=== PATIENT | female | born 1935 | race Caucasian/White ===

== ENCOUNTER → 2019-09-12 11:52 | Outpatient (BNVA) | payer MEDICARE, OTHER, SELFPAY | PROVIDERS: Family Provider Internal Medicine; Visit Provider Nurse Practitioner | DX: K59.00 Constipation, unspecified (principal); E78.2 Mixed hyperlipidemia; I10 Essential (primary) hypertension; K21.9 Gastro-esophageal reflux disease without esophagitis; Z85.038 Personal history of other malignant neoplasm of large intestine | CPT/HCPCS: 74018; 80053; 80061; 81000; 84443; 85025 ==

== ENCOUNTER → 2019-10-24 13:45 | Outpatient (BNVA) | payer MEDICARE, OTHER, SELFPAY | PROVIDERS: Family Provider Internal Medicine; Visit Provider Nurse Practitioner | DX: R19.7 Diarrhea, unspecified (principal); I10 Essential (primary) hypertension; R10.30 Lower abdominal pain, unspecified | CPT/HCPCS: 74018; 81000; 85025 ==

== ENCOUNTER → 2019-10-27 09:56 | Outpatient (BNVA) | payer MEDICARE, OTHER, SELFPAY | PROVIDERS: Family Provider Internal Medicine; Visit Provider Nurse Practitioner | DX: R10.31 Right lower quadrant pain (principal) | CPT/HCPCS: 74018; 81000; 85025 ==

== ENCOUNTER 2019-11-02 11:47 | Outpatient (CLI) | payer MEDICARE, OTHER, SELFPAY ==
[2019-11-02] MEDS: iohexol 300 mg/mL 50 mL Btl PO (11:59)
--- NOTE | 2019-11-02 13:00 | CT_ITS ---
WS: [id number] CT ABDOMEN AND PELVIS WITH CONTRAST HISTORY: right lower abdomen pain TECHNIQUE: Imaging performed of the abdomen and pelvis with IV contrast. Single phase imaging of the abdomen. Coronal and sagittal reformats are submitted. All CT scans at [facility] use at least one of these dose optimization techniques: automated exposure control; mA and/or kV adjustment per patient size (includes targeted exams where dose is matched to clinical indication); or iterativ e reconstruction. IV CONTRAST: Omnipaque 300; 95 mL IV. Oral contrast: Yes. DLP: 1073.26 mGycm COMPARISON: 03/07/2019 Lower thorax: Lung bases are clear. Mild enlargement of the heart. Small hiatal hernia. Liver/biliary system: Normal size liver. Numerous small cysts within the liver. No mass. No bile duct dilatation. Gallbladder: Normal. No gallstones or wall thickening. No pericholecystic fluid. Pancreas: Normal. Spleen: Normal. Adrenal glands: Normal. Right kidney: Duplicated renal pelvis. There is very small scattered cortical hypodensities. These ar e too small to characterize. No mass or obstruction. Left kidney: Cortical cyst upper pole measures 8 mm. No obstruction. Aorta: Mild atherosclerosis with no aneurysm. Lymphadenopathy: None. Free fluid: None. GI tract: The appendix is not definitely identified. There are no inflammatory changes in the RIGHT l ower quadrant. No GI tract obstruction. Numerous diverticula in the sigmoid colon. No evidence for ac sahil diverticulitis. Abdominal wall: Unremarkable abdominal wall. No hernia. Pelvis: Normally distended urinary bladder. No free fluid in the pelvis. Bones: Unremarkable. CT/CT abdomen pelvis w con* [id number] IMPRESSION: 1. No acute intra-abdominal or pelvic abnormalities. 2. Sigmoid diverticulosis without evidence for acute diverticulitis or obstruc tion. 3. 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 4. Hepatic cysts. 5. Cardiomegaly.
[2019-11-02] MEDS: iohexol 300 mg/mL 100 mL Btl IV (13:09)
== END 2019-11-02 11:48 | disposition home or self-care (01) ==
LOC: RADWPI 11:57
PROVIDERS: Family Provider Internal Medicine; PCP Nurse Practitioner; Visit Provider Nurse Practitioner
DX: R10.31 Right lower quadrant pain (principal); K57.30 Diverticulosis of large intestine without perforation or abscess without bleeding; K76.89 Other specified diseases of liver; I51.7 Cardiomegaly
CPT/HCPCS: 74177; Q9967

== ENCOUNTER 2019-11-16 09:26 | Day surgery (SDC) | payer MEDICARE, OTHER, SELFPAY ==
[2019-11-15 13:18] VITALS: BMI 22.8
--- NOTE | 2019-11-16 07:31 | P.ANESASSM_ITS ---
Pre-Anesthetic Assessment Pre-Anesthetic Assessment: Height/Weight: Height 1.6 m Weight 58.513 kg Preop Diagnosis: CHANGE INbowel habits Proposed Procedure: Operation Date: 11/16/19 11:05 Proposed Procedures p Colonoscopy with stool studies 14820 R19.7(Not Applicable) - Dillon Dietrich MD Familial anesthetic complications: none Was Beta Nataliia taken within 24 hours: N/A Last intake: NPO > 8 hrs Social: Social History: No alcohol and No tobacco Comment: quit smoking 34 years ago Exam: Pre-Anes Outpt Exam: alert, oriented x 3, clear to auscultation bilaterally and regular rate & rhythm Airway: Cervical ROM: WNL MP: 2 Dentition: False and Partials Pulmonary: Pulmonary: None reported CV/HEM: CV/HEM: HTN : : None reported Hepatic: Hepatic: None reported GI: GI: GERD Comments: L hemicolectomy 2006 Metabolic: Metabolic: Hyperlipidemia Musc/skel: Musc/skel: None reported Neuropsych: Neuropsych: TIA Anesthetic Plan: ASA status: 2 Anesthesia: MAC Risk of > 500 ml blood lo ss (7ml/kg in children): No Other Pertinent Information: patient poor historian PFSH Anesthesia PFSH: Medical History Ambulates with cane ASHD (arteriosclerotic heart disease) Chronic back pain Colon cancer Constipation Cystocele with prolapse Diarrhea GERD (gastroesophageal reflux disease) History of TIA (transient ischemic attack) Hypertension Mixed hyperlipidemia Surgical History H/O left hemicolectomy 2006 H/O vaginal surgery rectocele and cystocele repair in 1999 [place], [place] History of hysterectomy with BSO Family History Sister Breast cancer, Onset Age: 50 Hypertension Father Stroke Heart disease Hypertension Mother Stroke Heart disease Diabetes Hypertension Denies family history of Bleeding disorder Social History Smoking and tobacco status: former smoker Quit status (tobacco): has quit using tobacco Former quit date comment: 34 years ago Second hand smoke exposure: No Alcohol intake: never Lives independently: Yes Household members: none Marital status: / Current occupational status: retired Data Anesthesia Cardiac Studies: No Data to Display
[2019-11-16 09:39] VITALS: BP 171/67; PULSE 72; RESP 18; TEMP 36.8; O2SAT 99
[2019-11-16] MEDS: sodium chloride 0.9% 1,000 ML 30 ML IV (09:49)
--- NOTE | 2019-11-16 10:05 | W.PM.OPSUD ---
Surgery/Procedure H&P Update DATE OF PROCEDURE: November 16, 2019 DATE H&P PERFORMED: 11/14/19 H&P UPDATE INFORMATION: I have reviewed H&P completed within last 30 days, I have examined patient prior to procedure and Changes to prior documentation as noted here (Patient noticed some blood in the toilet today and then stopped on its own likely due to hemorrhoids) PREOP DIAGNOSIS: CHANGE INbowel habits PRIMARY INDICATION FOR PROCEDURE: The same PLANNED PROCEDURE: Operation Date: 11/16/19 11:05 Proposed Procedures p Colonoscopy with stool studies 85532 R19.7(Not Applicable) - Dillon Dietrich MD
[2019-11-16 10:53] VITALS: BP 105/50; PULSE 62; RESP 16; TEMP 36.6; O2SAT 98
[2019-11-16 11:05] VITALS: BP 128/63; PULSE 67; RESP 18; O2SAT 99
== END 2019-11-16 11:30 | disposition home or self-care (01) ==
PROVIDERS: PCP Nurse Practitioner; Visit Provider Surgery
PROC: 0DJD8ZZ Inspection of Lower Intestinal Tract, Via Natural or Artificial Opening Endoscopic (ICD-10-PCS; CPT 45378; principal; 2019-11-16 11:00)
DX: R19.4 Change in bowel habit (principal); K57.30 Diverticulosis of large intestine without perforation or abscess without bleeding; Z85.038 Personal history of other malignant neoplasm of large intestine; K52.9 Noninfective gastroenteritis and colitis, unspecified; Z87.891 Personal history of nicotine dependence; I10 Essential (primary) hypertension; K21.9 Gastro-esophageal reflux disease without esophagitis; Z90.49 Acquired absence of other specified parts of digestive tract; Z86.73 Personal history of transient ischemic attack (TIA), and cerebral infarction without residual deficits; E78.2 Mixed hyperlipidemia
CPT/HCPCS: 12345; 45378; 82274; 83630; 87493; 87506; J2704; J7030

== ENCOUNTER → 2019-11-24 11:54 | Outpatient (BNVA) | payer MEDICARE, OTHER, SELFPAY | PROVIDERS: PCP Nurse Practitioner; Visit Provider Nurse Practitioner | DX: R39.9 Unspecified symptoms and signs involving the genitourinary system (principal) | CPT/HCPCS: 81003 ==

== ENCOUNTER 2020-06-13 10:57 | Inpatient (IN) | payer MEDICARE, OTHER, SELFPAY ==
[2020-06-13] VITALS (16 sets, daily range): BP systolic 103–138; BP diastolic 44–66; PULSE 72–92; RESP 13–25; TEMP 36.6–36.8; O2SAT 92–98; BMI 21.2
--- NOTE | 2020-06-13 11:19 | ECG_ITS ---
[facility] Test Date: 2020-06-13 Pat Name: Cris Beavers Department: Room: Gender: Female Preventative Maintenance Technician: : 1935 Requested By: Robert Jamison Order Number: [id number] Fidel MD: Wilfrido Álvarez M.D. Measurements Intervals [place] Rate: 77 P: 25 MA: 154 QRS: -35 QRSD: 113 T: -40 QT: 405 QTc: 460 Interpretive Statements SINUS RHYTHM MARKED LEFT AXIS DEVIATION [QRS AXIS < -30] INCOMPLETE RIGHT BUNDLE BRANCH BLOCK [90+ ms QRS DURATION, TERMINAL R IN V1/V2, 40+ ms S IN I/aVL/V4/V5/V6] LEFT VENTRICULAR HYPERTROPHY AND ST-T CHANGE [VOLTAGE CRITERIA PLUS ST/T ABNORMALITY] POSSIBLE SEPTAL MYOCARDIAL INFARCTION [30 ms Q WAVE IN V1/V2], PROBABLY OLD Compared to ECG 08/16/2017 07:32:49 Left-axis deviation now present Incomplete right bundle-branch block now present ST (T wave) deviation now present Left anterior fascicular block no longer present Myocardial infarct finding still present Electronically Signed On 06-14-2020 22:20:35 FIELD SERVICE ENGINEER by Wilfrido Álvarez M.D. [id number]
--- NOTE | 2020-06-13 11:19 | XR_ITS ---
WS: [id number] XR chest 1V portable [id number] REASON FOR EXAM: chest pain FINDINGS: The chest is unchanged compared to previous examination 03/08/2019. There is moderate tortuosity thoracic aorta without dilatation. Calcified granulomatous changes in both hemithoraces. No active pulmonary parenchymal or pleural abnormality is noted. Bony thorax intact. XR/XR chest 1V portable [id number] IMPRESSION: No acute chest abnormality.
[2020-06-13 11:45] LABS: Basophils % 0.3 %; Eosinophils % 0.3 %; Hematocrit 38.4 % (37.0-47.0); Hemoglobin 12.6 g/dL (11.5-15.3); Lymphocytes # 1.2 10^3/uL (0.8-4.8); Lymphocytes % 21.1 %; Mean Corpuscular HGB Conc 32.8 g/dL (30.0-36.0); Mean Corpuscular Hemoglobin 30.6 pg (28.0-34.0); Mean Corpuscular Volume 93.2 fL (81-99); Mean Platelet Volume 9.5 fL (7.4-10.4); Monocytes # 0.5 10^3/uL (0.2-0.9); Monocytes % 8.6 %; Neutrophils # 4.05 10^3/uL (1.8-7.7); Neutrophils % 69.5 %; Nucleated Red Blood Cells % 0 %; Platelet Count 158 10^3/cmm (130-400); Red Blood Count 4.12 10^6/uL (4.1-5.3); Red Cell Distribution Width 13.7 % (12.1-15.1); White Blood Count 5.8 10^3/uL (4.0-10.0)
[2020-06-13 12:00] LABS: Alanine Aminotransferase 14 U/L (0-33); Albumin Level 3.8 g/dL (3.5-5.2); Alkaline Phosphatase 65 IU/L (35-105); Aspartate Amino Transferase 31 U/L (0-32); Blood Urea Nitrogen 12 mg/dL (8-23); Calcium 9.4 mg/dL (8.5-10.5); Carbon Dioxide 22 mmol/L (22-29); Chloride 104 mmol/L (98-107); Globulin 2.8 g/dL (1.3-4.6); Glucose 121 mg/dL (65-115); Osmolality Calculated 281 mOsm/kg (285-295); Sodium 135 mmol/L (136-145); Total Bilirubin 1.1 mg/dL (0.15-1.2); Total Protein 6.6 g/dL (6.6-8.7)
--- NOTE | 2020-06-13 12:03 | ED_ITS ---
HPI - Chest Pain General: Chief Complaint: Chest Pain Stated Complaint: COVID SYMPTOMS / CHEST PAIN Time Seen by Provider: 06/13/20 11:09 History of Present Illness: HPI narrative: 84-year-old female who presents to the emergency room with complaints of increasing shortness of breath and diarrhea for the last 3 days. She has not had any vomiting she has had little chest discomfort, she has a nonproductive cough subjectively she is noted a bit of a fever. She is not on any anticoagulants early on she states she had some dark reddish stools that is resolved and now she is mostly having watery or greenish colored stools. She been having chest discomfort intermittently for a couple of days but quite a bit worse this morning for a time this morning she said it radiated into both of her arms. She did not have any diaphoresis. MD complaint: chest heaviness Pertinent past history: coronary artery disease Onset (ago): day(s) Timing of current episode: episodic Prior episodes: Yes Onset: during rest Pain location: substernal and left chest Pain radiation: right arm and left arm Severity: moderate Quality: heaviness Relieving factors: rest Exacerbating factors: nothing Associated symptoms: Reports dyspnea; Deny abdominal pain, diaphoresis, fever(s), leg edema, nausea, palpitations, sense of impending doom, syncope or vomiting Treatment prior to arrival: none Review of Systems Const: Denies: fever(s) or diaphoresis ENMT: Denies: throat pain, ear or mastoid pain, nasal discharge or nasal congestion Card: Denies: palpitations or syncope Resp: Reports: dyspnea GI: Denies: abdominal pain, nausea or vomiting : Denies: flank pain, difficulty voiding, dysuria, urinary frequency or urinary urgency Skin/Breast: Denies: rash or pruritus [facility] ED PFSH: Medical History (Updated 06/13/20 @ 15:11 by Robert Jacobsen DO) Ambulates with cane ASHD (arteriosclerotic heart disease) Atherosclerotic heart disease of [place] coronary artery with other forms of angina pectoris Chronic back pain Chronic shortness of breath Colon cancer Constipation Cystocele with prolapse Diarrhea GERD (gastroesophageal reflux disease) History of TIA (transient ischemic attack) Hypertension Mixed hyperlipidemia Surgical History H/O left hemicolectomy 2006 H/O vaginal surgery rectocele and cystocele repair in 1999 [place], [place] History of hysterectomy with BSO Family History Sister Breast cancer, Onset Age: 50 Hypertension Father Stroke Heart disease Hypertension Mother Stroke Heart disease Diabetes Hypertension Denies family history of Bleeding disorder Social History Smoking and tobacco status: former smoker Quit status (tobacco): has quit using tobacco Former quit date comment: 34 years ago Second hand smoke exposure: No Alcohol intake: never Lives independently: Yes Household members: none Marital status: / Current occupational status: retired Physical Exam Const: COMMON NORMALS: no acute distress GENERAL APPEARANCE: cooperative and comfortable ORIENTATION/CONSCIOUSNESS: Yes awake, Yes oriented to person, Yes oriented to place and Yes oriented to time HENMT: COMMON NORMALS: normocephalic, atraumatic and hearing grossly normal bilaterally HEAD & SCALP: normocephalic and atraumatic Neck/C-Spine: COMMON NORMALS: no JVD Resp: COMMON NORMALS: normal respiratory effort, No retractions, No use of accessory muscles and clear to auscultation bilaterally AUSCULTATION: clear to auscultation bilaterally Cardio: COMMON NORMALS: no JVD, regular rate, regular rhythm and No murmurs present (Cardio) RATE: regular rate RHYTHM: regular rhythm GI: COMMON NORMALS: Soft to palpation and No hepatosplenomegaly present AUSCULTATION: Yes normoactive bowel sounds PALPATION: Yes Soft to palpation, No Tenderness to palpation present (GI), No Guarding due to palpation present (GI) and Yes No hepatosplenomegaly present Extremity: COMMON NORMALS: normal to inspection, capillary refill normal, no clubbing, cyanosis or edema, no calf tenderness and no pedal edema Neuro: SENSORIUM/ORIENTATION: Yes oriented to person, Yes oriented to place and Yes oriented to time Skin: COMMON NORMALS: no rashes or lesions noted GENERAL SKIN EXAM: no rashes or lesions noted Course Vital Signs: Vital signs: Vital Signs Temperature 98.3 F 06/13/20 11:13 Pulse Rate 83 06/13/20 13:22 Respiratory Rate 20 H 06/13/20 13:22 Blood Pressure 123/66 06/13/20 13:22 Pulse Oximetry 96 06/13/20 13:22 MDM - Chest Pain MDM Narrative: Medical decision making narrative: Troponin elevated. We will go ahead and give her Lovenox Nitropaste. We are screening her for Covid to hurt the other symptoms she is presenting with a very suspicious for Covid. Given her history of coronary disease its not at all and possible that she would have both in the same setting. Discussed Dr. Arenas will also consult with Dr. Álvarez. Lab Data: Labs: Lab Results 06/13/20 06/13/20 06/13/20 Range/Units 11:34 11:34 11:34 WBC 5.8 (4.0-10.0) 10^3/ uL RBC 4.12 (4.1-5.3) 10^6/u L Hgb 12.6 (11.5-15.3) g/dL Hct 38.4 (37.0-47.0) % MCV 93.2 (81-99) fL MCH 30.6 (28.0-34.0) pg MCHC 32.8 (30.0-36.0) g/dL RDW 13.7 (12.1-15.1) % Plt Count 158 (130-400) 10^3/c mm MPV 9.5 (7.4-10.4) fL Neut % (Auto) 69.5 % Lymph % (Auto) 21.1 % Darke % (Auto) 8.6 % Eos % (Auto) 0.3 % Baso % (Auto) 0.3 % Neut # (Auto) 4.05 (1.8-7.7) 10^3/u L Lymph # (Auto) 1.2 (0.8-4.8) 10^3/u L Darke # (Auto) 0.5 (0.2-0.9) 10^3/u L Eos # (Auto) 0.0 (0.0-0.8) 10^3/u L Baso # (Auto) 0.0 (0.0-0.1) 10^3/u L Nucleated RBC % (a uto) 0 % Nucleated RBCs # 0.0 /100WBC D-Dimer (0-0.59) ug/mIFE U Sodium 135 L (136-145) mmol/L Potassium 4.0 (3.5-5.1) mmol/L Chloride 104 (98-107) mmol/L Carbon Dioxide 22 (22-29) mmol/L Anion Gap 13.0 (5-19) BUN 12 (8-23) mg/dL Creatinine 0.8 (0.5-0.9) mg/dL GFR Calculation Not Reportable Glucose 121 H (65-115) mg/dL Calculated Osmolal ity 281 L (285-295) mOsm/k g Calcium 9.4 (8.5-10.5) mg/dL Total Bilirubin 1.1 (0.15-1.2) mg/dL AST 31 (0-32) U/L ALT 14 (0-33) U/L Alkaline Phosphata se 65 (35-105) IU/L Troponin T Baselin e 365 H* (0-10) ng/L Troponin T [address] [place] (0-10) ng/L Delta Troponin T (0-10) ABS# Total Protein 6.6 (6.6-8.7) g/dL Albumin 3.8 (3.5-5.2) g/dL Globulin 2.8 (1.3-4.6) g/dL SARS-CoV-2 Ag (Rap id) (Negative) 06/13/20 06/13/20 06/13/20 Range/Units 11:34 12:34 13:20 WBC (4.0-10.0) 10^3/ uL RBC (4.1-5.3) 10^6/u L Hgb (11.5-15.3) g/dL Hct (37.0-47.0) % MCV (81-99) fL MCH (28.0-34.0) pg MCHC (30.0-36.0) g/dL RDW (12.1-15.1) % Plt Count (130-400) 10^3/c mm MPV (7.4-10.4) fL Neut % (Auto) % Lymph % (Auto) % Darke % (Auto) % Eos % (Auto) % Baso % (Auto) % Neut # (Auto) (1.8-7.7) 10^3/u L Lymph # (Auto) (0.8-4.8) 10^3/u L Darke # (Auto) (0.2-0.9) 10^3/u L Eos # (Auto) (0.0-0.8) 10^3/u L Baso # (Auto) (0.0-0.1) 10^3/u L Nucleated RBC % (a uto) % Nucleated RBCs # /100WBC D-Dimer 0.28 (0-0.59) ug/mIFE U Sodium (136-145) mmol/L Potassium (3.5-5.1) mmol/L Chloride (98-107) mmol/L Carbon Dioxide (22-29) mmol/L Anion Gap (5-19) BUN (8-23) mg/dL Creatinine (0.5-0.9) mg/dL GFR Calculation Glucose (65-115) mg/dL Calculated Osmolal ity (285-295) mOsm/k g Calcium (8.5-10.5) mg/dL Total Bilirubin (0.15-1.2) mg/dL AST (0-32) U/L ALT (0-33) U/L Alkaline Phosphata se (35-105) IU/L Troponin T Baselin e (0-10) ng/L Troponin T 120 [address] [place] 429.7 H (0-10) ng/L Delta Troponin T 64.7 H* (0-10) ABS# Total Protein (6.6-8.7) g/dL Albumin (3.5-5.2) g/dL Globulin (1.3-4.6) g/dL SARS-CoV-2 Ag (Rap id) Negative (Negative) Discharge Plan Discharge Patient Disposition: Admitted As Inpatient Clinical Impression: NSTEMI (non-ST elevated myocardial infarction), Hypertension, Suspected 2019- nCoV infection Condition: Stable Prescriptions: No Action aspirin 325 mg tablet 325 mg PO DAILY RF: 0 nitroglycerin [Nitrostat] 0.4 mg tablet, sublingual 0.4 mg SUBLINGUAL Q5M PRN (Reason: Chest Pain) 30 Days Qty: 30 RF: 5 trazodone 50 mg Tablet 50 mg PO DAILY@20 RF: 0 Lasix 20 mg Tablet 20 mg PO DAILY@08 RF: 0 Dexilant 30 mg Capsule,Biphase Delayed Releas 30 mg PO DAILY@08 RF: 0 atorvastatin 40 mg tablet 40 mg PO DAILY@20 RF: 0 nifedipine 30 mg tablet extended release 30 mg PO DAILY@20 RF: 0 isosorbide mononitrate 60 mg tablet extended release 24 hr 60 mg PO DAILY@20 RF: 0 losartan 100 mg tablet 100 mg PO DAILY@20 RF: 0 Probiotic 3 billion cell capsule 3,000 mmu cells PO BID@08,20 RF: 0 Referrals: Yuki Segura FNP-C [Primary Care Provider] - Coding Level of Care Code ED Manager Research for Stephanie Vidal
[2020-06-13 12:17] LABS: Troponin(5th) Baseline 365 ng/L (0-10)
[2020-06-13] MEDS: enoxaparin 60 mg/0.6 mL Syringe SUBCUT (12:30)
[2020-06-13] MEDS: nitroglycerin 1 gm/inch oint Pkt 0.5 INCH TOPICAL (12:34)
[2020-06-13] MEDS: morphine 4 mg/mL SDV 1 mL 2 MG IVP (12:44)
[2020-06-13] MEDS: aspirin 81 mg Chew Tablet 324 MG PO (12:44)
[2020-06-13 12:46] LABS: D Dimer 0.28 ug/mIFEU (0-0.59)
--- NOTE | 2020-06-13 13:19 | ECG_ITS ---
[facility] Test Date: 2020-06-13 Pat Name: Cris Beavers Department: Room: Gender: Female Director Of Bands: : 1935 Requested By: Robert Jamison Order Number: [id number] Fidel MD: Wilfrido Álvarez M.D. Measurements Intervals [place] Rate: 74 P: 79 MI: 159 QRS: -51 QRSD: 114 T: -30 QT: 434 QTc: 482 Interpretive Statements SINUS RHYTHM MARKED LEFT AXIS DEVIATION [QRS AXIS < -30] INCOMPLETE RIGHT BUNDLE BRANCH BLOCK [90+ ms QRS DURATION, TERMINAL R IN V1/V2, 40+ ms S IN I/aVL/V4/V5/V6] MODERATE VOLTAGE CRITERIA FOR LVH, CONSIDER NORMAL VARIANT [MEETS CRITERIA IN ONE OF: R(aVL), S(V1), R(V5), R(V5/V6)+S(V1)] POSSIBLE SEPTAL MYOCARDIAL INFARCTION [30 ms Q WAVE IN V1/V2], PROBABLY OLD MODERATE T-WAVE ABNORMALITY, CONSIDER LATERAL ISCHEMIA [-0.1+ mV T WAVE IN I/aVL/V5/V6] Compared to ECG 06/13/2020 11:29:39 T-wave abnormality now present Possible ischemia now present ST (T wave) deviation no longer present Myocardial infarct finding still present Electronically Signed On 06-14-2020 22:52:05 SCRAPER MEAT by Wilfrido Álvarez M.D. [email or web address]
[2020-06-13 13:33] LABS: SARS Covid-2 Antigen Negative (Negative)
--- NOTE | 2020-06-13 14:28 | P.HP_ITS ---
Providers/Chief Complaint Primary Care Provider: MAXWELL Duran-C Chief Complaint: COVID SYMPTOMS / CHEST PAIN History of Present Illness Pleasant 84-year-old lady with history of CVA, reports history of PA but denies history of stenting, HTN, HLD, chronic shortness of breath, reports mild aortic regurgitation, developed diarrhea over the last 2 days, also with some dry heaving, poor appetite, abdominal cramping. Diarrhea reports initially was dark, subsequently brownish-red, then green with last episode this morning. So far no further episodes in the hospital. She woke up this morning with severe discomfort in her chest, located in the middle, radiating to both arms, as well as to her jaw. She got concerned, took 2 nitroglycerin and came to the hospital. She reports she has been having some chronic shortness of breath, currently not worse than usual. She does report having some hot flashes/chills at home since Thursday, but has not measured her temperature. She is afebrile in ER. She has no leukocytosis. Rapid COVID-19 antigen tested and is negative. She is noted to have left axis deviation, incomplete RBBB, LVH and possible ST abnormality on EKG, Q waves in V1, V2 with possibly old PA. Her troponin is elevated at 365. She reports currently she is feeling better. In ER she received aspirin, Lovenox, nitroglycerin, morphine. Chest x-ray is unremarkable. She reports this morning her blood pressure was elevated at 181/98. She reports also that last 2 days she ran out of aspirin at home and wa s not taking it because was worried to have to get out from the house to get more. She is being admitted to the hospital, currently to medical surgical floor as CSU is currently closed. She names her son London as power of employment attorney for healthcare decisions in case she cannot make decisions on her own. She states she has not notified him about coming to the hospital as she did not want him to worry or try to calm down here. She states that in case of cardiac arrest does not want CPR, but would be willing to undergo temporary intubation in case of isolated pulmonary issue, but does not want prolonged life support. States that she has had quite a bit of consideration about this, and that she also has advanced directives drawn up. She has had experience with this when her had and has had time to think about her own wishes. Review of Systems Const: Denies: fever(s), chills, body aches or malaise Eyes: Denies: change in vision or eye redness ENMT: Denies: throat pain, oral sores or ear or mastoid pain Card: Reports: chest pain and palpitations (occasional); Denies: edema, pre-syncope, dyspnea on exertion or orthopnea Resp: Reports: dyspnea (chronic); Denies: productive cough, change in phlegm color or hemoptysis GI: Denies: abdominal pain, nausea, vomiting, diarrhea, constipation, hematochezia or melena : Denies: flank pain, urinary frequency or hematuria Musc: Denies: back pain, joint swelling or joint redness Skin/Breast: Denies: rash, sores or new lesions Neuro: Denies: headache(s), numbness in extremities, weakness in extremities, dizziness, confusion or seizure-like activity Endo: Denies: polyuria or polydipsia Jose Manuel/Lymph: Denies: easy bleeding or purpura All/Imm: Denies: urticaria, throat swelling or tongue swelling Medications/Allergies Home Medications Medication Instructions Recorded Confirmed Last Taken Type aspirin 325 mg tablet 325 mg PO DAILY 09/12/19 06/13/20 06/09/20 History nitroglycerin 0.4 mg sublingual 0.4 mg SUBLINGUAL Q5M PRN 30 Days 11/29/19 06/13/20 Unknown Rx tablet #30 tab atorvastatin 40 mg PO DAILY@06/13/20 06/13/20 06/12/20 History dexlansoprazole [Dexilant] 30 mg PO DAILY@06/13/20 06/13/20 06/12/20 History furosemide [Lasix] 20 mg PO DAILY@06/13/20 06/13/20 06/09/20 History isosorbide mononitrate 60 mg PO DAILY@06/13/20 06/13/20 06/12/20 History lactobacillus combination no.4 3,000 mmu cells PO BID@06/13/20 06/13/20 Unknown History [Probiotic] losartan 100 mg PO DAILY@06/13/20 06/13/20 06/12/20 History nifedipine 30 mg PO DAILY@20 1206/13/20 06/12/20 History trazodone 50 mg PO DAILY@20 06/13/20 06/13/20 06/12/20 History Allergies Allergy/AdvReac Type Severity Reaction Status Date / Time MARIBEL Inhibitors Allergy cough Verified 04/05/20 15:34 donepezil Allergy Unknown Verified 04/05/20 15:34 meloxicam Allergy Rash Verified 04/05/20 15:34 propoxyphene [From Darvon] Allergy Unknown Verified 04/05/20 15:34 Darvocet Allergy Unknown Uncoded 04/05/20 15:34 PFSH Acute PFSH: Medical History (Updated 06/13/20 @ 14:34 by Angelo Link MD) Ambulates with cane ASHD (arteriosclerotic heart disease) 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 Chronic back pain Chronic shortness of breath Colon cancer Constipation Cystocele with prolapse Diarrhea GERD (gastroesophageal reflux disease) History of TIA (transient ischemic attack) Hypertension Mixed hyperlipidemia Surgical History H/O left hemicolectomy 2006 H/O vaginal surgery rectocele and cystocele repair in 1999 [place], [place] History of hysterectomy with BSO Family History Sister Breast cancer, Onset Age: 50 Hypertension Father Stroke Heart disease Hypertension Mother Stroke Heart disease Diabetes Hypertension Denies family history of Bleeding disorder Social History Smoking and tobacco status: former smoker Quit status (tobacco): has quit using tobacco Former quit date comment: 34 years ago Second hand smoke exposure: No Alcohol intake: never Lives independently: Yes Household members: none Marital status: / Current occupational status: retired Vitals/I&O/Wt Last Vital Signs Temp 98.3 F 06/13/20 11:13 Pulse 83 06/13/20 13:22 Resp 20 H 06/13/20 13:22 BP 123/66 06/13/20 13:22 Pulse Ox 96 06/13/20 13:22 Weight last 48 hrs Weight 54.431 kg Physical Exam Const: COMMON NORMALS: no acute distress and patient oriented x3 GENERAL APPEARANCE: anxious HENMT: COMMON NORMALS: oropharynx normal Neck/C-Spine: COMMON NORMALS: no JVD Resp: COMMON NORMALS: normal respiratory effort and clear to auscultation bilaterally AUSCULTATION: clear to auscultation bilaterally Cardio: COMMON NORMALS: no JVD, regular rhythm, S1 normal heart sound present, S2 normal heart sound present and No murmurs present (Cardio) RHYTHM: regular rhythm HEART SOUNDS: S1 normal heart sound present and S2 normal heart sound present GI: COMMON NORMALS: Normal to inspection, nondistended, normoactive bowel sounds present, Soft to palpation and non-tender PALPATION: Yes Soft to palpation Extremity: COMMON NORMALS: no joint enlargement and no pedal edema Neuro: COMMON NORMALS: patient oriented x3 and moves all extremities Skin: COMMON NORMALS: no rashes or lesions noted GENERAL SKIN EXAM: no rashes or lesions noted Data : 06/13/20 11:34 06/13/20 11:34 A&P Assessment and plan (1) NSTEMI (non-ST elevated myocardial infarction): Follow-up troponin EKG series. Aspirin, Lovenox, statin for non-STEMI. Continue Imdur. Not on beta-juan, not sure why. She states that she may have some sort of arrhythmia, and review of heart rates in the past indicates heart rates in the 60s. Not sure if has history of bradycardia pauses or heart block. For now we will hold off on beta-juan unless started by cardiology. In ER also reported dark stools at home. She has been already started on aspirin, Lovenox. For now we will hold off on Plavix unless deemed essential by cardiology given concern whether or not she may have had some GI bleed on Thursday. Hemoccult in ER has been negative. We will monitor hemoglobin. Cardiac monitoring. TTE. Status: Acute (2) Gastroenteritis: This appears to be perhaps little bit better. She has had diarrhea since Thursday. Last episode of stool was this morning, at that time reports was green. Initially dark, then brownish-red. She says she is been trying to stay hydrated with Gatorade. She says she continue to take her medications.. She also has been taking Lasix, possibly leading to dehydration. Renal function appears normal. We will at this time hold off on antibiotics. If additional episodes of diarrhea collect stool studies for culture, ova and parasites, C. difficile. Monitor hemoglobin due to report of dark stool. Gentle IV hydration. Hold Lasix for now. PPI. Status: Acute Additional A&P Information YOGESH: Intolerant of CPAP Palpitations: She reports occasional palpitations. Is not sure if she has perhaps some history of arrhythmia, seems to have heard this before. I did not see this recorded in cardiology visit. We will continue cardiac monitoring while in the hospital. HTN: This morning reports blood pressure was elevated. 181/98. Currently at goal. Continue losartan, nifedipine, Imdur. Hold Lasix. HLD Chronic shortness of breath: Very distant history of smoking. Does not have apart from sleep apnea they are officially diagnosed lung condition. Not normally on oxygen. Rapid COVID-19 is negative. She is saturating well in ER, 97% on room air. Lung exam is clear. Chest x-ray unremarkable. D-dimer is normal. Monitor. Minimal hyponatremia: 135. Monitor. Attestations Medical Necessity Statement*: Admission of over 2 midnights is continued for assessment management of non-STEMI. Coding Level of Care Code Acute Healthcare Administrative Assistant for angus Vidal Diagnoses NSTEMI (non-ST elevated myocardial infarction) I21.4 Gastroenteritis K52.9
[2020-06-13 14:37] LABS: Troponin 5 2HR 429.7 ng/L (0-10); Troponin 5 2HR Delta 64.7 ABS# (0-10)
--- NOTE | 2020-06-13 14:41 | USCV_ITS ---
Cris Beavers Age: 84 Gender: F : 1935 Exam Date: 06/13/2020 15:27 Ordering Phys: Angelo Link MD Technologist: Cely Vega Exam Location: [facility] [place] Indication: NSTEMI BP: 113 / 51 HR: 65 Rhythm: Sinus Technical Quality: Adequate MEASUREMENTS (Male / Female) Normal Values 2D ECHO LV Diastolic Diameter PLAX 3.7 cm 4.2 - 5.9 / 3.9 - 5.3 cm LV Systolic Diameter PLAX 2.4 cm LV Chamber Size 3.1 cm IVS Diastolic Thickness 1.1 cm 0.6 - 1.0 / 0.6 - 0.9 cm IVS Systolic Thickness 1.5 cm LVPW Diastolic Thickness 1.3 cm 0.6 - 1.0 / 0.6 - 0.9 cm LVPW Systolic Thickness 2.0 cm RV Chamber Size 3.0 cm LVOT Diameter 2.0 cm LV Ejection Fraction 2D Teich 65.2 % LA Diameter 2.8 cm LA Width 2.4 cm LA Height 3.4 cm RA Width 3.2 cm RA Height 3.7 cm Aorta at Sinotubular Diameter 2.7 cm M-MODE LV Diastolic Diameter MM 6.3 cm 4.2 - 5.9 / 3.9 - 5.3 cm LV Systolic Diameter MM 3.9 cm LV Ejection Fraction MM Teich 67.5 % IVS Diastolic Thickness MM 1.1 cm 0.6 - 1.0 / 0.6 - 0.9 cm IVS Systolic Thickness MM 1.5 cm LVPW Diastolic Thickness MM 1.2 cm 0.6 - 1.0 / 0.6 - 0.9 cm LVPW Systolic Thickness MM 1.5 cm Aortic Annulus Diameter 2.7 cm LA Ao Ratio MM 1.1 MV E Point Septal Separation 0.6 cm DOPPLER AV Peak Velocity 115.0 cm/s LVOT Peak Velocity 89.0 cm/s AV Area Cont Eq vti 2.6 cm squared AV Area Cont Eq pk 2.5 cm squared MV Area PHT 3.3 cm squared Mitral E to A Ratio 0.5 MV E' Velocity 28.0 cm/s Mitral E to MV E' Ratio 7.6 Mitral E to LV E' Lateral Ratio 7.7 Mitral E to LV E' Septal Ratio 7.5 TR Peak Velocity 199.5 cm/s TR Peak Gradient 15.9 mmHg TV Peak E Velocity 32.0 cm/s Right Atrial Pressure 3.0 mmHg Pulmonary Artery Systolic Pressu 18.9 mmHg PV Peak Velocity 79.0 cm/s RV Acceleration Time 0.2 s RV Ejection Time 0.3 s RV AcT/ET 0.5 FINDINGS Left Ventricle Normal left ventricular size and systolic function, EF 55%. Grade I/IV diastolic dysfunction (abnormal relaxation filling pattern), normal to mildly elevated filling pressures. Segmental wall motion analysis difficult because of the poor ultrasonic window. No significant wall motion normalities are noted in the basal and mid segments. The apical segments are not visualized well Right Ventricle The right ventricle is normal in size and function. Right Atrium The right atrium is normal in size. Left Atrium The left atrium is normal in size. Mitral Valve Mild mitral valve regurgitation. Thickened mitral valve. Mild mitral annular calcification. Aortic Valve No gross abnormalities noted . Tricuspid Valve No gross abnormalities noted Pulmonic Valve Pulmonic valve not well visualized. Pericardium Normal pericardium without effusion. Aorta Normal ascending aorta dimension. CONCLUSIONS Normal left ventricular size and systolic function, EF 55%. Grade I/IV diastolic dysfunction (abnormal relaxation filling pattern), normal to mildly elevated filling pressures. Segmental wall motion analysis difficult because of the poor ultrasonic window. Mild mitral valve regurgitation. Thickened mitral valve. Mild mitral annular calcification. There is no pericardial effusion. There are no intracardiac masses. Compared to the study from 02/03/2017, there may not be a significant change Dr iWlfrido Álvarez MD [facility] (Electronically Signed) Final Date: 13 June 2020 16:37 S
--- NOTE | 2020-06-13 16:51 | P.CONIM_ITS ---
Providers/Reason For Consult Consulting Physican/Specialty*: COREEN Álvarez MD/cardiology Reason for Consult*: Patient is a chest pain and elevated troponin T Attending Physician: Angelo Link Primary Care Provider: CARRILLO Duran History of Present Illness History of Present Illness Cris Beavers is a 84 year old female, is admitted to the hospital through the emergency room, where she presented with complaints of chest pain and diarrhea. She was found to have elevated troponin T. Cardiology consult is requested for further cardiac evaluation recommendations Patient has a history of atherosclerotic heart disease, high blood pressure and dyslipidemia. She has been having diarrhea for the last 4 days or so. According to the patient, she had a watery stools. She also had some headache and nausea. This morning as she woke up, she was complaining of pain and pressure across the chest associated with some shortness of breath. The pain was radiated to the back between the shoulder blades and also into both sides of the jaw. She has some tingling and numbness on both sides of the face, more so on the right side. The intensity of the chest pain was moderate to severe. She took a total of 2 sublingual nitro at home. After the second nitro, she felt like going the bathroom. As she was trying to get up and walk towards the bathroom, she almost collapsed. Subsequently when she checked her blood pressure, it was around 70 systolic. The morning prior to this episode, her blood pressure was in the 180s. He called the [facility] at this point. The nurse in the clinic advised her to go to the emergency room. She helped her to get an ambulance. Patient did not have any fever or chills. No cough. She has a baseline shortness of breath with activities. With the chest pain, the shortness of breath got worse. The chest pain middle lasted for a total of 2 hours or so. Currently at the time of my examination, she is complaining of some soreness in the chest. She also is complaining of the feeling of weakness. No other specific complaints. Patient has a history of diarrhea for last many years. According to her, ever since the colon surgery for cancer, she has been getting diarrhea. But this time it may be little more severe and more watery. No abdominal cramping. No melena. Review of Systems Narrative: CONSTITUTIONAL: No fever or chills. EYES: No blurring of vision or other visual disturbances lately. ENT: No hoarseness of voice, auditory disturbances or sore throat. CARDIOVASCULAR: As mentioned above. RESPIRATORY: No significant cough. GASTROINTESTINAL: Nausea and diarrhea for the last 4 days GENITOURINARY: No dysuria or hematuria. INTEGUMENTARY: No skin rashes or history of skin cancer. NEURO: Patient had some intermittent confusion PSYCHIATRIC: No history of psychosis or major depression. HEMATOLOGIC: No bleeding disorders or significant anemia. ENDOCRINE: No history of polyuria or polydipsia. MUSCULOSKELETAL: No recent joint pain or swelling. ALLERGY/IMMUNOLOGY: As mentioned above. Meds/Allergies Home Medications and Allergies Home Medications Medication Instructions Recorded Confirmed Last Taken Type aspirin 325 mg tablet 325 mg PO DAILY 09/12/19 06/13/20 06/09/20 History nitroglycerin 0.4 mg sublingual 0.4 mg SUBLINGUAL Q5M PRN 30 Days 11/29/19 06/13/20 Unknown Rx tablet #30 tab atorvastatin 40 mg PO DAILY@06/13/20 06/13/20 06/12/20 History dexlansoprazole [Dexilant] 30 mg PO DAILY@06/13/20 06/13/20 06/12/20 History furosemide [Lasix] 20 mg PO DAILY@06/13/20 06/13/20 06/09/20 History isosorbide mononitrate 60 mg PO DAILY@06/13/20 06/13/20 06/12/20 History lactobacillus combination no.4 3,000 mmu cells PO BID@06/13/20 06/13/20 Unknown History [Probiotic] losartan 100 mg PO DAILY@06/13/20 06/13/20 06/12/20 History nifedipine 30 mg PO DAILY@06/13/20 06/13/20 06/12/20 History trazodone 50 mg PO DAILY@06/13/20 06/13/20 06/12/20 History Allergies Allergy/AdvReac Type Severity Reaction Status Date / Time MARIBEL Inhibitors Allergy cough Verified 04/05/20 15:34 donepezil Allergy Unknown Verified 04/05/20 15:34 meloxicam Allergy Rash Verified 04/05/20 15:34 propoxyphene [From Darvon] Allergy Unknown Verified 04/05/20 15:34 Darvocet Allergy Unknown Uncoded 04/05/20 15:34 PFSH Acute PFSH: Medical History (Updated 06/13/20 @ 17:26 by Wilfrido Álvarez MD) Ambulates with cane ASHD (arteriosclerotic heart disease) Atherosclerotic heart disease of [place] coronary artery with other forms of angina pectoris Chronic back pain Chronic shortness of breath Colon cancer Constipation Cystocele with prolapse Diarrhea GERD (gastroesophageal reflux disease) History of TIA (transient ischemic attack) Hypertension Mixed hyperlipidemia Surgical History H/O left hemicolectomy 2006 H/O vaginal surgery rectocele and cystocele repair in 1999 [place], [place] History of hysterectomy with BSO Family History Sister Breast cancer, Onset Age: 50 Hypertension Father Stroke Heart disease Hypertension Mother Stroke Heart disease Diabetes Hypertension Denies family history of Bleeding disorder Social History Smoking and tobacco status: former smoker Quit status (tobacco): has quit using tobacco Former quit date comment: 34 years ago Second hand smoke exposure: No Alcohol intake: never Lives independently: Yes Household members: none Marital status: / Current occupational status: retired Vitals/I&O/Wt Last Vital Signs Temp 97.8 F 06/13/20 16:30 Pulse 92 06/13/20 16:30 Resp 25 H 06/13/20 16:30 BP 124/57 06/13/20 16:30 Pulse Ox 97 06/13/20 16:30 Weight last 48 hrs Weight 120 lb Physical Exam Narrative: EXAM NARRATIVE: GENERAL: The patient is alert and oriented times three. Not in any acute distress. Patient is somewhat anxious HEENT: No significant pallor, icterus or lymphadenopathy. The pupils are reactant to light. Oral cavity: There are no mucous membrane lesions. Funduscopic examination: The disk margins appear to be sharp with no exudates or hemorrhages. NECK: Trachea appears to be central. No masses noted. No JVD or thyromegaly appreciated. No carotid bruit. RESPIRATORY: Chest is symmetrical. No intercostals muscle retraction or any accessory muscle activation. There is no chest wall tenderness. Breath sounds are heard bilaterally. No rales or rhonchi heard. No evidence of any consolidation. BREASTS: Deferred. HEART: The PMI is in the 5th left intercostals space just inside the midclavicular line. No palpable precordial events. S1 and S2 are normal. No S3 or S4 heard. No pericardial rub or any click heard. Short systolic murmur in the left sternal border. No diastolic murmurs. ABDOMEN: No vessel pulsations or distention. No tenderness. No organomegaly appreciated. No abdominal bruit. Bowel sounds are normally heard. : Deferred. RECTAL: Deferred. LYMPHATIC: No lymphadenopathy noted in the neck or groin. EXTREMITIES: No edema or cyanosis. Peripheral pulses are palpable but weak bilaterally. MUSCULOSKELETAL: Gait is normal. There is no joint deformity or swelling noted. No joint tenderness or any effusion. The shoulder and hip joints appear to have normal range of motion. SKIN: There are no significant scars or skin rash noted. NEUROPSYCHIATRIC: The patient is alert and oriented x3. Appears to be in a good mood. The higher functions are grossly within normal limits. No tremors or rigidity noted. Data Labs: Other Labs: Laboratory Last Values WBC 5.8 10^3/uL (4.0- 10.0) 06/13/20 11:34 RBC 4.12 10^6/uL (4.1 -5.3) 06/13/20 11:34 Hgb 12.6 g/dL (11.5-1 5.3) 06/13/20 11:34 Hct 38.4 % (37.0-47.0 ) 06/13/20 11:34 MCV 93.2 fL (81-99) 06/13/20 11:34 MCH 30.6 pg (28.0-34. 0) 06/13/20 11:34 MCHC 32.8 g/dL (30.0-3 6.0) 06/13/20 11:34 RDW 13.7 % (12.1-15.1 ) 06/13/20 11:34 Plt Count 158 10^3/cmm (130 -400) 06/13/20 11:34 MPV 9.5 fL (7.4-10.4) 06/13/20 11:34 Neut % (Auto) 69.5 % 06/13/20 11:34 Lymph % (Auto) 21.1 % 06/13/20 11:34 [place] % (Auto) 8.6 % 06/13/20 11:34 Eos % (Auto) 0.3 % 06/13/20 11:34 Baso % (Auto) 0.3 % 06/13/20 11:34 Neut # (Auto) 4.05 10^3/uL (1.8 -7.7) 06/13/20 11:34 Lymph # (Auto) 1.2 10^3/uL (0.8- 4.8) 06/13/20 11:34 [place] # (Auto) 0.5 10^3/uL (0.2- 0.9) 06/13/20 11:34 Eos # (Auto) 0.0 10^3/uL (0.0- 0.8) 06/13/20 11:34 Baso # (Auto) 0.0 10^3/uL (0.0- 0.1) 06/13/20 11:34 Nucleated RBC % (a uto) 0 % 06/13/20 11:34 Nucleated RBCs # 0.0 /100WBC 06/13/20 11:34 D-Dimer 0.28 ug/mIFEU (0- 0.59) 06/13/20 11:34 Sodium 135 mmol/L (136-1 45) L 06/13/20 11:34 Potassium 4.0 mmol/L (3.5-5 .1) 06/13/20 11:34 Chloride 104 mmol/L (98-10 7) 06/13/20 11:34 Carbon Dioxide 22 mmol/L (22-29) 06/13/20 11:34 Anion Gap 13.0 (5-19) 06/13/20 11:34 BUN 12 mg/dL (8-23) 06/13/20 11:34 Creatinine 0.8 mg/dL (0.5-0. 9) 06/13/20 11:34 GFR Calculation Not Reportable 06/13/20 11:34 Glucose 121 mg/dL (65-115 ) H 06/13/20 11:34 Calculated Osmolal ity 281 mOsm/kg (285- 295) L 06/13/20 11:34 Calcium 9.4 mg/dL (8.5-10 .5) 06/13/20 11:34 Total Bilirubin 1.1 mg/dL (0.15-1 .2) 06/13/20 11:34 AST 31 U/L (0-32) 06/13/20 11:34 ALT 14 U/L (0-33) 06/13/20 11:34 Alkaline Phosphata se 65 IU/L (35-105) 06/13/20 11:34 Troponin T Baselin e 365 ng/L (0-10) H* 06/13/20 11:34 Troponin T 120 Min sahil 429.7 ng/L (0-10) H 06/13/20 13:20 Delta Troponin T 64.7 ABS# (0-10) H* 06/13/20 13:20 Total Protein 6.6 g/dL (6.6-8.7 ) 06/13/20 11:34 Albumin 3.8 g/dL (3.5-5.2 ) 06/13/20 11:34 Globulin 2.8 g/dL (1.3-4.6 ) 06/13/20 11:34 SARS-CoV-2 Ag (Rap id) Negative (Negati ve) 06/13/20 12:34 Imaging^: Echo: My impression: Normal left ventricular size and systolic function, EF 55%. Grade I/IV diastolic dysfunction (abnormal relaxation filling pattern), normal to mildly elevated filling pressures. Segmental wall motion analysis difficult because of the poor ultrasonic window. Mild mitral valve regurgitation. Thickened mitral valve. Mild mitral annular calcification. There is no pericardial effusion. There are no intracardiac masses. Compared to the study from 02/03/2017, there may not be a significant change EKG^: EKG 1: My Interpretation: The EKG showed a sinus rhythm with a left axis deviation. Features of flattening of the hypertrophy. Old septal [place]. Diffuse nonspecific T wave changes in the inferior and anterolateral leads A&P Assessment and plan (1) NSTEMI (non-ST elevated myocardial infarction): Patient is a clinical features are suggestive of a non-ST elevation myocardial infarction. She had a prolonged episode of chest pain. Currently she seems to be stable. The EKG changes are nonspecific. The troponin T is trending up. Hemodynamically she seems to be stable. The echocardiogram is unremarkable. Status: Acute (2) Gastroenteritis: Patient apparently has a history of diarrhea intermittently ever since the colon surgery for cancer. This could be part of it. She may have acute gastroenteritis as well. Management as per the primary. Status: Acute (3) Hypertension: Currently she is normotensive. May continue on the current medications. Status: Chronic Qualifiers: Hypertension type: essential hypertension Qualified Code(s): I10 - Essential (primary) hypertension (4) Mixed hyperlipidemia: May continue on the current medication. Status: Acute (5) History of TIA (transient ischemic attack): She has no recurrence of TIA recently. We will continue the current treatment measures. Status: Acute Additional A&P Information Patient may require a cardiac catheterization, to further evaluate her coronary status and decide on further management. Based on the clinical progress, further recommendations will be made. She may be kept on aspirin, subcu Lovenox, Plavix and other current medications. Thank you for the opportunity to evaluate this patient make these recommendations Coding Level of Care Code Acute Secretary Of State for Stephanie Vidal Diagnoses NSTEMI (non-ST elevated myocardial infarction) I21.4 Gastroenteritis K52.9 Hypertension I10 Hypertension type: essential hypertension Mixed hyperlipidemia E78.2 History of TIA (transient ischemic attack) Z86.73
--- NOTE | 2020-06-13 17:19 | ECG_ITS ---
[facility] Test Date: 2020-06-13 Pat Name: Cris Beavers Department: Room: 112 Gender: Female Bee Tender: : 1935 Requested By: Robert Jamison Order Number: [id number] Fidel MD: Wilfrido Álvarez M.D. Measurements Intervals [place] Rate: 70 P: -10 NH: 162 QRS: -47 QRSD: 106 T: -53 QT: 424 QTc: 460 Interpretive Statements SINUS RHYTHM MARKED LEFT AXIS DEVIATION [QRS AXIS < -30] INCOMPLETE RIGHT BUNDLE BRANCH BLOCK [90+ ms QRS DURATION, TERMINAL R IN V1/V2, 40+ ms S IN I/aVL/V4/V5/V6] VOLTAGE CRITERIA FOR LVH [MEETS CRITERIA IN ONE OF: R(aVL), S(V1), R(V5), R(V5/V6)+S(V1)] POSSIBLE SEPTAL MYOCARDIAL INFARCTION [30 ms Q WAVE IN V1/V2], PROBABLY OLD Compared to ECG 06/13/2020 15:04:08 T-wave abnormality no longer present Possible ischemia no longer present Myocardial infarct finding still present Electronically Signed On 06-14-2020 22:52:15 [employer] ARCHITECT by Wilfrido Álvarez M.D. [id number]
[2020-06-13] MEDS: clopidogrel 300 mg Tablet PO (18:35)
[2020-06-13] MEDS: losartan 50 mg Tablet 100 MG PO (19:59)
[2020-06-13] MEDS: atorvastatin 40 mg Tablet PO (19:59)
[2020-06-13] MEDS: NIFEdipine ER (24 hr) 30 mg Tablet PO (19:59)
[2020-06-13] MEDS: isosorbide mononitrate ER 60 mg Tablet PO (19:59)
[2020-06-13] MEDS: trazodone 50 mg Tablet PO (19:59)
[2020-06-14] VITALS (14 sets, daily range): BP systolic 95–119; BP diastolic 49–57; PULSE 72–112; RESP 17–92; TEMP 36.4–36.9; O2SAT 94–95
[2020-06-14] MEDS: enoxaparin 60 mg/0.6 mL Syringe 50 MG SUBCUT ×2 (00:12→11:49)
[2020-06-14 06:26] LABS: Basophils % 0.3 %; Eosinophils % 0.3 %; Hematocrit 35.7 % (37.0-47.0); Hemoglobin 11.6 g/dL (11.5-15.3); Lymphocytes # 1.1 10^3/uL (0.8-4.8); Lymphocytes % 17.8 %; Mean Corpuscular HGB Conc 32.5 g/dL (30.0-36.0); Mean Corpuscular Hemoglobin 29.8 pg (28.0-34.0); Mean Corpuscular Volume 91.8 fL (81-99); Mean Platelet Volume 10.3 fL (7.4-10.4); Monocytes # 0.8 10^3/uL (0.2-0.9); Monocytes % 13.1 %; Neutrophils # 4.06 10^3/uL (1.8-7.7); Neutrophils % 68.3 %; Nucleated Red Blood Cells % 0 %; Platelet Count 150 10^3/cmm (130-400); Red Blood Count 3.89 10^6/uL (4.1-5.3); Red Cell Distribution Width 14.1 % (12.1-15.1)
[2020-06-14 06:43] LABS: Alanine Aminotransferase 14 U/L (0-33); Albumin Level 3.8 g/dL (3.5-5.2); Alkaline Phosphatase 59 IU/L (35-105); Anion Gap 15.6 (5-19); Aspartate Amino Transferase 27 U/L (0-32); Blood Urea Nitrogen 20 mg/dL (8-23); Calcium 9.2 mg/dL (8.5-10.5); Carbon Dioxide 20 mmol/L (22-29); Chloride 102 mmol/L (98-107); Globulin 2.4 g/dL (1.3-4.6); Glucose 116 mg/dL (65-115); Osmolality Calculated 282 mOsm/kg (285-295); Potassium 3.6 mmol/L (3.5-5.1); Sodium 134 mmol/L (136-145); Total Protein 6.2 g/dL (6.6-8.7)
[2020-06-14] MEDS: clopidogrel 75 mg Tablet PO (07:54)
[2020-06-14] MEDS: aspirin 325 mg Tablet PO (07:54)
[2020-06-14] MEDS: pantoprazole DR 40 mg Tablet PO (07:54)
[2020-06-14 09:41] LABS: Troponin T (5th) Once 657 ng/L (0-10)
--- NOTE | 2020-06-14 10:51 | P.PN_ITS ---
Subjective Subjective: Interval history: She does not have chest pain this morning. Says breathing is comfortable. She has been bothered with some cramping in her abdomen, and multiple episodes of diarrhea overnight and this morning. No bloody stool. No dark black stool. Vitals/I&O/Wt Last Vital Signs Temp 98.1 F 06/14/20 07:42 Pulse 81 06/14/20 07:42 Resp 18 06/14/20 07:42 BP 102/49 06/14/20 07:42 Pulse Ox 95 06/14/20 07:42 06/13/20 06/14/20 06/14/20 22:59 06:59 14:59 Intake Total 200 / 200 Output Total 200 / 200 400 / 600 Balance -200 / -200 -200 / -400 Weight last 48 hrs Weight 54.431 kg Physical Exam Const: COMMON NORMALS: no acute distress, patient oriented x3 and alert GENERAL APPEARANCE: cooperative and anxious (Less anxious this morning) ORIENTATION/CONSCIOUSNESS: Yes awake HENMT: COMMON NORMALS: oropharynx normal Neck/C-Spine: COMMON NORMALS: no JVD Resp: COMMON NORMALS: normal respiratory effort and clear to auscultation bilaterally AUSCULTATION: clear to auscultation bilaterally Cardio: COMMON NORMALS: no JVD, regular rhythm, S1 normal heart sound present, S2 normal heart sound present and No murmurs present (Cardio) RHYTHM: regular rhythm HEART SOUNDS: S1 normal heart sound present and S2 normal heart sound present GI: COMMON NORMALS: Normal to inspection, nondistended, normoactive bowel sounds present, Soft to palpation and non-tender PALPATION: Yes Soft to palpation Extremity: COMMON NORMALS: no joint enlargement and no pedal edema Neuro: COMMON NORMALS: patient oriented x3 and moves all extremities SENSORIUM/ORIENTATION: Yes alert Skin: COMMON NORMALS: no rashes or lesions noted GENERAL SKIN EXAM: no rashes or lesions noted Data : 06/14/20 04:31 06/14/20 04:31 Micro: Microbiology 06/14/20 01:00 Stool Lactoferrin - Final Stool 06/13/20 01:00 Occult Blood (FIT) - Final Stool - Stool Aspirate A&P Assessment and plan (1) NSTEMI (non-ST elevated myocardial infarction): No chest pain this morning. TTE with 55% EF. Grade 1/4 diastolic dysfunction. Difficult to perform segmental wall motion analysis due to poor ultrasonic window. Mild MR. Thickened MV. Troponin this morning 675. Pending additional assessment by cardiology with possible coronary angiography. She has had some frequent stools with diarrhea today, but does not appear septic. Hemoglobin stable. Hemoccult negative. Continue Lovenox, aspirin, Plavix, statin. Not on beta-juan, concern for possible chronic arrhythmia? Hx palpitations. BP a bit soft. Will stop nifedipine. Reduce imdur dose. Hold losartan. Cardiac monitoring. Status: Acute (2) Gastroenteritis: Possible enterocolitis. No further vomiting. Still recurrent diarrhea. No overt abdominal pain, but some discomfort is present. No vomiting. Hemoccult negative. Lactoferrin positive. Pending C. difficile, stool culture, O&P. Currently no signs of sepsis, if becomes febrile, or worsening abdominal pain, or other concerning symptoms consider additional abdominal imaging. For now not on any antibiotics. Supportive care. Gentle IV hydration. P.o. diet as tolerating. This appears to be perhaps little bit better. She has had diarrhea since Thursday. Last episode of stool was this morning, at that time reports was green. Initially dark, then brownish-red. She says she is been trying to stay h ydrated with Gatorade. She says she continue to take her medications.. She also has been taking Lasix, possibly leading to dehydration. Renal function appears normal. We will at this time hold off on antibiotics. If additional episodes of diarrhea collect stool studies for culture, ova and parasites, C. difficile. Monitor hemoglobin due to report of dark stool. Gentle IV hydration. Hold Lasix for now. PPI. Status: Acute Additional A&P Information YOGESH: Intolerant of CPAP Palpitations: She reports occasional palpitations. Is not sure if she has perhaps some history of arrhythmia, seems to have heard this before. I did not see this recorded in cardiology visit. We will continue cardiac monitoring while in the hospital. HTN: morning of admission reports blood pressure was elevated. 181/98. Currently low. Hold losartan, DC nifedipine, cut down Imdur. Hold Lasix with ongoing diarrhea. HLD Chronic shortness of breath: Not short of breath. Saturating mid 90s on room air. Very distant history of smoking. Does not have apart from sleep apnea they are officially diagnosed lung condition. Not normally on oxygen. Rapid COVID-19 is negative. She is saturating well in ER, 97% on room air. Lung exam is clear. Chest x-ray unremarkable. D-dimer is normal. Monitor. Minimal hyponatremia: Mild. Monitor. Unlimited sodium intake for now. Attestations Medical Necessity Statement*: Continue admission for assessment management of non-STEMI, gastroenteritis, possible enterocolitis. Coding Level of Care Code Acute [employer] for [facility] Fwd Exam Comprehensive Diagnoses NSTEMI (non-ST elevated myocardial infarction) I21.4 Gastroenteritis K52.9
--- NOTE | 2020-06-14 11:34 | ECG_ITS ---
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 Measurements Intervals [place] Rate: 80 P: OR: QRS: -45 QRSD: 113 T: 106 QT: 392 QTc: 454 Interpretive Statements SUPRAVENTRICULAR RHYTHM MARKED LEFT AXIS DEVIATION [QRS AXIS < -30] INCOMPLETE RIGHT BUNDLE BRANCH BLOCK [90+ ms QRS DURATION, TERMINAL R IN V1/V2, 40+ ms S IN I/aVL/V4/V5/V6] LEFT VENTRICULAR HYPERTROPHY AND ST-T CHANGE [VOLTAGE CRITERIA PLUS ST/T ABNORMALITY] POSSIBLE SEPTAL MYOCARDIAL INFARCTION [30 ms Q WAVE IN V1/V2], PROBABLY OLD Compared to ECG 06/13/2020 17:44:29 Supraventricular rhythm now present ST (T wave) deviation now present Sinus rhythm no longer present Myocardial infarct finding still present Electronically Signed On 06-14-2020 22:55:22 TESTING CONSULTANT by Wilfrido Álvarez M.D. [id number]
[2020-06-14] MEDS: lactated ringers 1,000 ML 50 ML IV (11:49)
--- NOTE | 2020-06-14 13:20 | PM.PN ---
Subjective Subjective: Interval history: Patient has more frequent diarrhea since yesterday. Denies any chest pain or shortness of breath. No palpitation, dizziness or syncopal episode. No fever or chills. No cough. Medications: Reviewed: Yes Medication Review Details: Current Medications Acetaminophen (Acetaminophen 325 Mg Tablet) 650 mg PO Q6H PRN PRN Reason: Mild/Mod Pain Or Temp >/= 101 Aspirin (Aspirin 325 Mg Tablet) 325 mg PO DAILY [facility] Last Admin: 06/14/20 07:54 Dose: 325 mg Documented by: Atorvastatin Calcium (Atorvastatin 40 Mg Tablet) 40 mg PO DAILY@20 [facility] Last Admin: 06/13/20 19:59 Dose: 40 mg Documented by: Clopidogrel Bisulfate (Clopidogrel 75 Mg Tablet) 75 mg PO DAILY [facility] Last Admin: 06/14/20 07:54 Dose: 75 mg Documented by: Enoxaparin Sodium (Enoxaparin 60 Mg/0.6 Ml Syringe) 50 mg SUBCUT Q12H [facility] Last Admin: 06/14/20 11:49 Dose: 50 mg Documented by: Lactated Ringer's (Lactated Ringers) 1,000 mls @ 50 mls/hr IV .Q20H [facility] Last Admin: 06/14/20 11:49 Dose: 50 mls/hr Documented by: Isosorbide Mononitrate (Isosorbide Mononitrate Er 60 Mg Tablet) 30 mg PO DAILY@20 [facility] Losartan Potassium (Losartan 50 Mg Tablet) 100 mg PO DAILY@20 [facility] Last Admin: 06/13/20 19:59 Dose: 100 mg Documented by: Morphine Sulfate (Morphine 4 Mg/Ml Sdv 1 Ml) 2 mg IVP Q4H PRN PRN Reason: SEVERE PAIN Nitroglycerin (Nitroglycerin 0.4 Mg Sublingual Tablet) 0.4 mg SUBLINGUAL Q5M PRN PRN Reason: Chest Pain Non-Formulary Medication (Lactobacillus Combination No.4 [Probiotic]) 3,000 mmu cells PO BID@ [facility] Ondansetron HCl (Ondansetron 2 Mg/Ml Sdv 2 Ml) 4 mg IVP Q6H PRN PRN Reason: NAUSEA AND VOMITING Pantoprazole Sodium (Pantoprazole Dr 40 Mg Tablet) 40 mg PO DAILY@08 [facility] Last Admin: 06/14/20 07:54 Dose: 40 mg Documented by: Trazodone HCl (Trazodone 50 Mg Tablet) 50 mg PO DAILY@20 [facility] Last Admin: 06/13/20 19:59 Dose: 50 mg Documented by: Vitals/I&O/Wt Last Vital Signs Temp 97.6 F 06/14/20 11:34 Pulse 81 06/14/20 11:34 Resp 18 06/14/20 11:34 BP 111/55 06/14/20 11:34 Pulse Ox 95 06/14/20 11:34 06/13/20 06/14/20 06/14/20 22:59 06:59 14:59 Intake Total 200 / 200 Output Total 200 / 200 400 / 600 Balance -200 / -200 -200 / -400 Weight last 48 hrs Weight 120 lb Physical Exam Narrative: EXAM NARRATIVE: GENERAL: The patient is alert and oriented times three. Not in any acute distress. Patient is somewhat anxious HEENT: No significant pallor, icterus or lymphadenopathy. The pupils are reactant to light. Oral cavity: There are no mucous membrane lesions. NECK: Trachea appears to be central. No masses noted. No JVD or thyromegaly appreciated. No carotid bruit. RESPIRATORY: Chest is symmetrical. No intercostals muscle retraction or any accessory muscle activation. There is no chest wall tenderness. Breath sounds are heard bilaterally. No rales or rhonchi heard. No evidence of any consolidation. BREASTS: Deferred. HEART: The PMI is in the 5th left intercostals space just inside the midclavicular line. No palpable precordial events. S1 and S2 are normal. No S3 or S4 heard. No pericardial rub or any click heard. Short systolic murmur in the left sternal border. No diastolic murmurs. ABDOMEN: No vessel pulsations or distention. Diffuse tenderness around the periumbilical region. No organomegaly appreciated. No abdominal bruit. Bowel sounds are normally heard. : Deferred. RECTAL: Deferred. LYMPHATIC: No lymphadenopathy noted in the neck or groin. EXTREMITIES: No edema or cyanosis. Peripheral pulses are palpable but weak bilaterally. MUSCULOSKELETAL: No acute joint deformities or swelling SKIN: There are no significant scars or skin rash noted. NEUROPSYCHIATRIC: The patient is alert and oriented x3. Appears to be in a good mood. The higher functions are grossly within normal limits. No tremors or rigidity noted. Data : 06/14/20 04:31 06/14/20 04:31 Micro: Microbiology 06/14/20 01:00 Stool Lactoferrin - Final Stool 06/13/20 01:00 Occult Blood (FIT) - Final Stool - Stool Aspirate A&P Assessment and plan (1) NSTEMI (non-ST elevated myocardial infarction): Patient is a clinical features are suggestive of a non-ST elevation myocardial infarction. She had a prolonged episode of chest pain. Currently she seems to be stable. The EKG changes are nonspecific. The troponin T is trending up. Hemodynamically she seems to be stable. The echocardiogram is unremarkable. Because of the worsening diarrhea, we may hold off on any further cardiac work-up at this point, until her GI symptoms are stabilized. Status: Acute (2) Gastroenteritis: Patient apparently has a history of diarrhea intermittently ever since the colon surgery for cancer. This could be part of it. She may have acute gastroenteritis as well. Management as per the primary. Status: Acute (3) Hypertension: Currently she is normotensive. May continue on the current medications. Status: Chronic Qualifiers: Hypertension type: essential hypertension Qualified Code(s): I10 - Essential (primary) hypertension (4) Mixed hyperlipidemia: May continue on the current medication. Status: Acute (5) History of TIA (transient ischemic attack): She has no recurrence of TIA recently. We will continue the current treatment measures. Status: Acute Additional A&P Information For further him management of her condition, she requires a cardiac catheterization. But because of the frequent diarrhea, we may hold off on this for the time being. Once the diarrhea is stabilized, we may consider taking her to the lab to do the coronary angiogram. This was discussed with the patient in detail which she understood well. Attestations Medical Necessity Statement*: Patient requires continued hospital stay for close monitoring and further management Coding Level of Care Code Acute Piping Designer for [facility] Fwd Diagnoses NSTEMI (non-ST elevated myocardial infarction) I21.4 Gastroenteritis K52.9 Hypertension I10 Hypertension type: essential hypertension Mixed hyperlipidemia E78.2 History of TIA (transient ischemic attack) Z86.73
--- NOTE | 2020-06-14 14:40 | PC.CHAP ---
Pastoral Care Encounter/Spiritual Assessment Type of Contact [] Declined project construction assistant manager visit [] Patient/Family/Request visit [] Outpatient visit [] Follow-up visit [] Physician referral [] Code/Alert [x] Routine visit [] Staff referral [] Actively dying [] Patient sleeping [] Family support [] [] Out of room [] Palliative care [] [x] Receiving care in room [] Pre-surgical visit [] Trauma [] Long length of stay [] ICU visit [] Other: Relational/Emotional Strength [x] Patient feels connected with others/family/visitors/staff [] Distress [] Loneliness/isolation [] Abandonment Spirituality of Patient [x] Person of Jeana [] Attends Denominational of their Jeana [x] Believes in Prayer [] Reads Bible or Roman Catholic materials [] There are Spiritual issues to be addressed Igniter Capper Interventions [x] Prayer [x] Active listening [x] Non-anxious presence [x] Spiritual/emotional support [] Crisis/trauma care [x] Spiritual counseling [] Bereavement support [] Provided bereavement packet [] Provided Bible/devotional materials [] Provided toy/stuffed animal, coloring book to patient or family member [] Provided Communion [] Anointing/[place] [] Salvation [x] Completed spiritual assessment [] Other: Impact on Illness or Injury [] Angry [] Fearful [] Anxious [] Often cries [] Exhaustion [] Unable to work [] Unable to attend samaritan [] Unable to walk/stand [] Unable to read [] Unable to drive [] Unable to eat/drink [] Unable to sleep [] Unable to be with family [] Patient intubated [] Other: Summary Dosen't know what need to done, has a good attitude, going into home care Time spent with patient 10 mins
--- NOTE | 2020-06-14 14:58 | PC.CHAP ---
Pastoral Care Encounter/Spiritual Assessment Type of Contact [] Declined fsr visit [] Patient/Family/Request visit [] Outpatient visit [] Follow-up visit [] Physician referral [] Code/Alert [X] Routine visit [] Staff referral [] Actively dying [] Patient sleeping [] Family support [] [] Out of room [] Palliative care [] [] Receiving care in room [] Pre-surgical visit [] Trauma [] Long length of stay [] ICU visit [] Other: Relational/Emotional Strength [X] Patient feels connected with others/family/visitors/staff [] Distress [] Loneliness/isolation [] Abandonment Spirituality of Patient [X] Person of Jeana [X] Attends Episcopalian of their Jeana [X] Believes in Prayer [X] Reads Bible or Presybeterian materials [] There are Spiritual issues to be addressed Lab Technologist Interventions [X] Prayer [X] Active listening [X] Non-anxious presence [X] Spiritual/emotional support [] Crisis/trauma care [X] Spiritual counseling [] Bereavement support [] Provided bereavement packet [] Provided Bible/devotional materials [] Provided toy/stuffed animal, coloring book to patient or family member [] Provided Communion [] Anointing/[place] [] Salvation [X] Completed spiritual assessment [] Other: Impact on Illness or Injury [] Angry [] Fearful [] Anxious [] Often cries [] Exhaustion [] Unable to work [] Unable to attend congregational [] Unable to walk/stand [] Unable to read [X] Unable to drive [] Unable to eat/drink [] Unable to sleep [] Unable to be with family [] Patient intubated [] Other: Summary Lab Technologist and patient spoke of her jeana and the fear of COVID. Spoke about her lutheran family and lab animal technologist. Lab Technologist prayed with patient and inquired of any needs, none at this time. Time spent with patient 15 min
--- NOTE | 2020-06-14 19:10 | PC.NURSE ---
Received report from Velia Adam RN. Patient resting in bed rubbing her abdomen. Patient reports frequent loose, watery BMs today. Denies chest pain at this time. Patient denies needs. No other distress observed.
[2020-06-14] MEDS: atorvastatin 40 mg Tablet PO (19:50)
[2020-06-14] MEDS: trazodone 50 mg Tablet PO (19:50)
[2020-06-14] MEDS: isosorbide mononitrate ER 60 mg Tablet 30 MG PO (19:50)
[2020-06-15] VITALS (10 sets, daily range): BP systolic 124–170; BP diastolic 56–84; PULSE 66–90; RESP 15–28; TEMP 36.3–37.2; O2SAT 93–99
[2020-06-15] MEDS: enoxaparin 60 mg/0.6 mL Syringe 50 MG SUBCUT ×3 (03:36→23:34)
[2020-06-15] MEDS: lactated ringers 1,000 ML 50 ML IV (06:54)
[2020-06-15] MEDS: aspirin 325 mg Tablet PO (08:10)
[2020-06-15] MEDS: clopidogrel 75 mg Tablet PO (08:10)
[2020-06-15] MEDS: pantoprazole DR 40 mg Tablet PO (08:10)
[2020-06-15] MEDS: acetaminophen 325 mg Tablet 650 MG PO ×2 (08:17→14:09)
--- NOTE | 2020-06-15 10:08 | PM.PN ---
Subjective Subjective: Interval history: The patient continues to have very frequent diarrhea. The stool studies are still pending. She has some tight feeling in the chest. No fever or chills. No cough. The troponin T was found to be trending up. No unusual shortness of breath. The EKG from today revealed no new changes. Medications: Reviewed: Yes Medication Review Details: Current Medications Acetaminophen (Acetaminophen 325 Mg Tablet) 650 mg PO Q6H PRN PRN Reason: Mild/Mod Pain Or Temp >/= 101 Aspirin (Aspirin 325 Mg Tablet) 325 mg PO DAILY [facility] Last Admin: 06/14/20 07:54 Dose: 325 mg Documented by: Atorvastatin Calcium (Atorvastatin 40 Mg Tablet) 40 mg PO DAILY@20 [facility] Last Admin: 06/13/20 19:59 Dose: 40 mg Documented by: Clopidogrel Bisulfate (Clopidogrel 75 Mg Tablet) 75 mg PO DAILY [facility] Last Admin: 06/14/20 07:54 Dose: 75 mg Documented by: Enoxaparin Sodium (Enoxaparin 60 Mg/0.6 Ml Syringe) 50 mg SUBCUT Q12H [facility] Last Admin: 06/14/20 11:49 Dose: 50 mg Documented by: Lactated Ringer's (Lactated Ringers) 1,000 mls @ 50 mls/hr IV .Q20H [facility] Last Admin: 06/14/20 11:49 Dose: 50 mls/hr Documented by: Isosorbide Mononitrate (Isosorbide Mononitrate Er 60 Mg Tablet) 30 mg PO DAILY@20 [facility] Losartan Potassium (Losartan 50 Mg Tablet) 100 mg PO DAILY@20 [facility] Last Admin: 06/13/20 19:59 Dose: 100 mg Documented by: Morphine Sulfate (Morphine 4 Mg/Ml Sdv 1 Ml) 2 mg IVP Q4H PRN PRN Reason: SEVERE PAIN Nitroglycerin (Nitroglycerin 0.4 Mg Sublingual Tablet) 0.4 mg SUBLINGUAL Q5M PRN PRN Reason: Chest Pain Non-Formulary Medication (Lactobacillus Combination No.4 [Probiotic]) 3,000 mmu cells PO BID@08,20 [facility] Ondansetron HCl (Ondansetron 2 Mg/Ml Sdv 2 Ml) 4 mg IVP Q6H PRN PRN Reason: NAUSEA AND VOMITING Pantoprazole Sodium (Pantoprazole Dr 40 Mg Tablet) 40 mg PO DAILY@08 [facility] Last Admin: 06/14/20 07:54 Dose: 40 mg Documented by: Trazodone HCl (Trazodone 50 Mg Tablet) 50 mg PO DAILY@20 [facility] Last Admin: 06/13/20 19:59 Dose: 50 mg Documented by: Vitals/I&O/Wt Last Vital Signs Temp 97.6 F 06/15/20 04:00 Pulse 76 06/15/20 09:25 Resp 19 H 06/15/20 08:19 BP 126/61 06/15/20 08:19 Pulse Ox 93 06/15/20 09:25 06/14/20 06/15/20 06/15/20 22:59 06:59 14:59 Intake Total 954.167 / 954.167 118 / 118 Output Total 200 / 200 400 / 600 Balance -200 / -200 554.167 / 354.167 118 / 118 Weight last 48 hrs Weight 120 lb Physical Exam Narrative: EXAM NARRATIVE: GENERAL: The patient is alert and oriented times three. Not in any acute distress. Patient is somewhat anxious HEENT: No significant pallor, icterus or lymphadenopathy. The pupils are reactant to light. Oral cavity: There are no mucous membrane lesions. NECK: Trachea appears to be central. No masses noted. No JVD or thyromegaly appreciated. No carotid bruit. RESPIRATORY: Chest is symmetrical. No intercostals muscle retraction or any accessory muscle activation. There is no chest wall tenderness. Breath sounds are heard bilaterally. No rales or rhonchi heard. No evidence of any consolidation. BREASTS: Deferred. HEART: The heart sounds are normal. No S3 blood there is an S4. Short systolic murmur the left sternal border. No diastolic murmurs. ABDOMEN: No vessel pulsations or distention. Diffuse tenderness around the periumbilical region. No organomegaly appreciated. No abdominal bruit. Bowel sounds are normally heard. : Deferred. RECTAL: Deferred. LYMPHATIC: No lymphadenopathy noted in the neck or groin. EXTREMITIES: No edema or cyanosis. Peripheral pulses are palpable but somewhat weak bilaterally. MUSCULOSKELETAL: No acute joint deformities or swelling SKIN: There are no significant scars or skin rash noted. NEUROPSYCHIATRIC: The patient is alert and oriented x3. Appears to be in a good mood. The higher functions are grossly within normal limits. No tremors or rigidity noted. Data : 06/14/20 04:31 06/14/20 04:31 Other Labs: Laboratory Last Values WBC 6.0 10^3/uL (4.0-10.0) 06/14/20 04:31 RBC 3.89 10^6/uL (4.1-5.3) L 06/14/20 04:31 Hgb 11.6 g/dL (11.5-15.3) 06/14/20 04:31 Hct 35.7 % (37.0-47.0) L 06/14/20 04:31 MCV 91.8 fL (81-99) 06/14/20 04:31 MCH 29.8 pg (28.0-34.0) 06/14/20 04:31 MCHC 32.5 g/dL (30.0-36.0) 06/14/20 04:31 RDW 14.1 % (12.1-15.1) 06/14/20 04:31 Plt Count 150 10^3/cmm (130-400) 06/14/20 04:31 MPV 10.3 fL (7.4-10.4) 06/14/20 04:31 Neut % (Auto) 68.3 % 06/14/20 04:31 Lymph % (Auto) 17.8 % 06/14/20 04:31 Treasure % (Auto) 13.1 % 06/14/20 04:31 Eos % (Auto) 0.3 % 06/14/20 04:31 Baso % (Auto) 0.3 % 06/14/20 04:31 Neut # (Auto) 4.06 10^3/uL (1.8-7.7) 06/14/20 04:31 Lymph # (Auto) 1.1 10^3/uL (0.8-4.8) 06/14/20 04:31 Treasure # (Auto) 0.8 10^3/uL (0.2-0.9) 06/14/20 04:31 Eos # (Auto) 0.0 10^3/uL (0.0-0.8) 06/14/20 04:31 Baso # (Auto) 0.0 10^3/uL (0.0-0.1) 06/14/20 04:31 Nucleated RBC % (auto) 0 % 06/14/20 04:31 Nucleated RBCs # 0.0 /100WBC 06/14/20 04:31 D-Dimer 0.28 ug/mIFEU (0-0.59) 06/13/20 11:34 Sodium 134 mmol/L (136-145) L 06/14/20 04:31 Potassium 3.6 mmol/L (3.5-5.1) 06/14/20 04:31 Chloride 102 mmol/L (98-107) 06/14/20 04:31 Carbon Dioxide 20 mmol/L (22-29) L 06/14/20 04:31 Anion Gap 15.6 (5-19) 06/14/20 04:31 BUN 20 mg/dL (8-23) 06/14/20 04:31 Creatinine 0.9 mg/dL (0.5-0.9) 06/14/20 04:31 GFR Calculation Not Reportable 06/14/20 04:31 Glucose 116 mg/dL (65-115) H 06/14/20 04:31 Calculated Osmolality 282 mOsm/kg (285-295) L 06/14/20 04:31 Calcium 9.2 mg/dL (8.5-10.5) 06/14/20 04:31 Total Bilirubin 1.0 mg/dL (0.15-1.2) 06/14/20 04:31 AST 27 U/L (0-32) 06/14/20 04:31 ALT 14 U/L (0-33) 06/14/20 04:31 Alkaline Phosphatase 59 IU/L (35-105) 06/14/20 04:31 Troponin T Gen 5 ng/L 657 ng/L (0-10) H* 06/14/20 04:31 Troponin T Baseline 365 ng/L (0-10) H* 06/13/20 11:34 Troponin T 120 Minute 429.7 ng/L (0-10) H 06/13/20 13:20 Delta Troponin T 64.7 ABS# (0-10) H* 06/13/20 13:20 Troponin T Hi Sens 6Hr 614.0 ng/L (0-10) H 06/13/20 17:24 Troponin T Hi Sens 6Hr Delta 249.0 ng/L (0-12) H* 06/13/20 17:24 Total Protein 6.2 g/dL (6.6-8.7) L 06/14/20 04:31 Albumin 3.8 g/dL (3.5-5.2) 06/14/20 04:31 Globulin 2.4 g/dL (1.3-4.6) 06/14/20 04:31 SARS-CoV-2 Ag (Rapid) Negative (Negative) 06/13/20 12:34 Micro: Microbiology 06/14/20 01:00 Stool Lactoferrin - Final Stool EKG 2: My Interpretation: The EKG showed a normal sinus rhythm with left axis deviation. Features of LVH. Possible old septal myocardial infarction. Nonspecific ST-T changes in the love lateral leads A&P Assessment and plan (1) NSTEMI (non-ST elevated myocardial infarction): The patient has features of a non-ST relation myocardial infarction. Currently she has some atypical chest symptoms. She requires a cardiac catheterization, to further evaluate the coronary status, especially in view of the upward trending of the troponin T. I may go ahead and do a repeat troponin T today to follow the trend. The EKG from today was reviewed. She may be kept on the Lovenox, Plavix and aspirin. I also may start her on a low-dose of beta-juan. Because of the ongoing diarrhea,, we may hold off on the cardiac catheterization, unless she become more symptomatic Status: Acute (2) Gastroenteritis: Patient apparently has a history of diarrhea intermittently ever since the colon surgery for cancer. This could be part of it. She may have acute gastroenteritis as well. Management as per the primary. Status: Acute (3) Hypertension: Currently she is normotensive. May continue on the current medications. Status: Chronic Qualifiers: Hypertension type: essential hypertension Qualified Code(s): I10 - Essential (primary) hypertension (4) Mixed hyperlipidemia: May continue on the current medication. Status: Acute (5) History of TIA (transient ischemic attack): She has no recurrence of TIA recently. We will continue the current treatment measures. Status: Acute Additional A&P Information For further him management of her condition, she requires a cardiac catheterization. But because of the ongoing severe diarrhea, we may hold off on this for the time being. Once the diarrhea is stabilized, we may consider taking her to the lab to do the coronary angiogram. This was discussed with the patient once again which she understood well. Attestations Medical Necessity Statement*: Patient requires continued hospital stay for close monitoring and further management Coding Level of Care Code Acute Meter Reader Inspector for g [facility]wd Diagnoses NSTEMI (non-ST elevated myocardial infarction) I21.4 Gastroenteritis K52.9 Hypertension I10 Hypertension type: essential hypertension Mixed hyperlipidemia E78.2 History of TIA (transient ischemic attack) Z86.73
[2020-06-15] MEDS: loperamide 2 mg Capsule PO ×2 (11:32→14:09)
[2020-06-15] MEDS: metoprolol tartrate 25 mg Tablet 12.5 MG PO ×2 (11:32→18:04)
[2020-06-15 12:28] LABS: Troponin T (5th) Once 410 ng/L (0-10)
--- NOTE | 2020-06-15 16:49 | PM.PN ---
Subjective Subjective: Interval history: Reports frequent watery stools. Denies abdominal pain. Denies nausea or vomiting. No fevers or chills. No chest pain, shortness of breath, palpitations. Medications: Reviewed: Yes Medication Review Details: Generic Name Dose Route Start Last Admin Trade Name Freq PRN Reason Stop Dose Admin Acetaminophen 650 mg 06/13/20 16:27 06/15/20 14:09 Acetaminophen 32 5 Mg Tablet PO 650 mg Q6H PRN Administration Mild/Mod Pain Or Temp >/= 101 Aspirin 325 mg 06/14/20 09:00 06/15/20 08:10 Aspirin 325 Mg T ablet PO 325 mg DAILY [facility] Administration Atorvastatin Calci um 40 mg 06/13/20 20:00 06/14/20 19:50 Atorvastatin 40 Mg Tablet PO 40 mg DAILY@20 [facility] Administration Clopidogrel Bisulf ate 75 mg 06/14/20 09:00 06/15/20 08:10 Clopidogrel 75 M g Tablet PO 75 mg DAILY [facility] Administration Enoxaparin Sodium 50 mg 06/14/20 00:30 06/15/20 13:08 Enoxaparin 60 Mg /0.6 Ml Syringe SUBCUT 50 mg Q12H [facility] Administration Lactated Ringer's 1,000 mls @ 50 ml s/hr 06/14/20 11:15 06/15/20 06:54 Lactated Ringers IV 50 mls/hr .Q20H [facility] Administration Isosorbide Mononit rate 30 mg 06/14/20 20:00 06/14/20 19:50 Isosorbide [place]ow itrate Er 60 Mg Ta blet PO 30 mg DAILY@20 [facility] Administration Loperamide HCl 2 mg 06/15/20 09:34 06/15/20 14:09 Loperamide 2 Mg Capsule PO 2 mg QID PRN Administration DIARRHEA Losartan Potassium 100 mg 06/13/20 20:00 06/13/20 19:59 Losartan 50 Mg T ablet PO 100 mg DAILY@20 [facility] Administration Metoprolol Tartrat e 12.5 mg 06/15/20 10:30 06/15/20 11:32 Metoprolol Tartr ate 25 Mg Tablet PO 12.5 mg BID [facility] Administration Trazodone HCl 50 mg 06/13/20 20:00 06/14/20 19:50 Trazodone 50 Mg Tablet PO 50 mg DAILY@20 [facility] Administration Vitals/I&O/Wt Last Vital Signs Temp 99.0 F 06/15/20 16:41 Pulse 70 06/15/20 16:41 Resp 22 H 06/15/20 16:41 BP 135/66 06/15/20 16:41 Pulse Ox 96 06/15/20 16:41 06/15/20 06/15/20 06/15/20 06:59 14:59 22:59 Intake Total 954.167 / 954.167 118 / 118 Output Total 400 / 600 Balance 554.167 / 354.167 118 / 118 Physical Exam Narrative: EXAM NARRATIVE: The patient is awake alert and oriented x4. No acute distress. Mood and affect are appropriate. Responses are adequate. Skin is warm and dry. Moist mucous nares. Neck supple. No JVD Lungs are clear to auscultation bilaterally. No wheezes or crackles Heart S1, S2, regular Abdomen soft, nontender, bowel sounds are present Extremities no edema cyanosis or calf tenderness bilaterally Data : 06/14/20 04:31 06/14/20 04:31 A&P Additional A&P Information Non-ST elevation GA. Troponin is flat. Continuing aspirin, full dose of Lovenox, atorvastatin, is a Sorbide and metoprolol. Appreciate Dr. Álvarez's input. Cardiac catheterization is considered after improvement of her diarrhea. Diarrhea. Her abdomen is benign on examination. CT was negative for acute intra-abdominal findings. Stool testing is also unremarkable. Will start Imodium. Also the patient reports drinking milk regularly. She states that previously she was told to avoid milk products but could not afford lactose-free milk. Ordering lactose-free diet. However she might require outpatient GI evaluation to rule out other possibilities such as microscopic colitis or inflammatory bowel disease. Hypertension. Currently well controlled. Continue current management including as needed coverage. The plan of care was discussed with the patient and multidisciplinary team. They verbalized understanding and agreement. Attestations Medical Necessity Statement*: Still requires inpatient hospitalization. Will require cardiac catheterization after improvement of her diarrhea. Coding Level of Care Code Acute Channel Director for [facility]
[2020-06-15] MEDS: phenyleph-mineral oil-petrolat Oint 28 gm 1 APPLIC PR ×2 (18:03→20:37)
[2020-06-15] MEDS: famotidine 20 mg Tablet PO (18:04)
[2020-06-15] MEDS: diphenoxylate/atropine Tablet 1 TAB PO (18:12)
[2020-06-15] MEDS: isosorbide mononitrate ER 60 mg Tablet 30 MG PO (20:33)
[2020-06-15] MEDS: trazodone 50 mg Tablet PO (20:33)
[2020-06-15] MEDS: atorvastatin 40 mg Tablet PO (20:33)
[2020-06-16] VITALS (9 sets, daily range): BP systolic 114–153; BP diastolic 57–81; PULSE 64–81; RESP 16–24; TEMP 36.4–36.9; O2SAT 95–98
[2020-06-16] MEDS: lactated ringers 1,000 ML 50 ML IV (02:00)
[2020-06-16 05:07] LABS: Basophils % 0.5 %; Eosinophils % 1.8 %; Hemoglobin 11.6 g/dL (11.5-15.3); Lymphocytes # 1.1 10^3/uL (0.8-4.8); Lymphocytes % 47.5 %; Mean Corpuscular HGB Conc 33.1 g/dL (30.0-36.0); Mean Corpuscular Hemoglobin 30.2 pg (28.0-34.0); Mean Corpuscular Volume 91.1 fL (81-99); Mean Platelet Volume 9.6 fL (7.4-10.4); Monocytes # 0.3 10^3/uL (0.2-0.9); Monocytes % 12.2 %; Neutrophils % 37.5 %; Nucleated Red Blood Cells % 0 %; Platelet Count 125 10^3/cmm (130-400); Red Blood Count 3.84 10^6/uL (4.1-5.3); Red Cell Distribution Width 13.7 % (12.1-15.1); White Blood Count 2.2 10^3/uL (4.0-10.0)
[2020-06-16 06:03] LABS: Albumin Level 3.9 g/dL (3.5-5.2); Anion Gap 12.6 (5-19); Blood Urea Nitrogen 11 mg/dL (8-23); Carbon Dioxide 22 mmol/L (22-29); Chloride 108 mmol/L (98-107); Glucose 88 mg/dL (65-115); Phosphorus 3.2 mg/dL (2.5-4.5); Potassium 3.6 mmol/L (3.5-5.1); Sodium 139 mmol/L (136-145)
[2020-06-16 06:06] LABS: Magnesium 1.8 mg/dL (1.7-2.3)
[2020-06-16 06:29] LABS: Neutrophils # 0.83 10^3/uL (1.8-7.7)
--- NOTE | 2020-06-16 08:55 | PM.PN ---
Subjective Subjective: Interval history: The patient reports several more episodes of watery diarrhea since yesterday. Reports streaks of blood from the rectum due to her hemorrhoids. The stool is not black or bloody. Denies abdominal pain. Denies nausea or vomiting. No fevers or chills. No chest pain or shortness of breath. Medications: Reviewed: Yes Medication Review Details: Generic Name Dose Route Start Last Admin Trade Name Freq PRN Reason Stop Dose Admin Acetaminophen 650 mg 06/13/20 16:27 06/15/20 14:09 Acetaminophen 32 5 Mg Tablet PO 650 mg Q6H PRN Administration Mild/Mod Pain Or Temp >/= 101 Atorvastatin Calci um 40 mg 06/13/20 20:00 06/15/20 20:33 Atorvastatin 40 Mg Tablet PO 40 mg DAILY@20 BETH Administration Clopidogrel Bisulf ate 75 mg 06/14/20 09:00 06/15/20 08:10 Clopidogrel 75 M g Tablet PO 75 mg DAILY BETH Administration Enoxaparin Sodium 50 mg 06/14/20 00:30 06/15/20 23:34 Enoxaparin 60 Mg /0.6 Ml Syringe SUBCUT 50 mg Q12H BETH Administration Famotidine 20 mg 06/15/20 18:00 06/15/20 18:04 Famotidine 20 Mg Tablet PO 20 mg BID BETH Administration Lactated Ringer's 1,000 mls @ 50 ml s/hr 06/14/20 11:15 06/16/20 02:00 Lactated Ringers IV 50 mls/hr .Q20H BETH Administration Isosorbide Mononit rate 30 mg 06/14/20 20:00 06/15/20 20:33 Isosorbide [place] itrate Er 60 Mg Ta blet PO 30 mg DAILY@20 BETH Administration Loperamide HCl 2 mg 06/15/20 09:34 06/15/20 14:09 Loperamide 2 Mg Capsule PO 2 mg QID PRN Administration DIARRHEA Losartan Potassium 100 mg 06/13/20 20:00 06/13/20 19:59 Losartan 50 Mg T ablet PO 100 mg DAILY@20 BETH Administration Metoprolol Tartrat e 12.5 mg 06/15/20 10:30 06/15/20 18:04 Metoprolol Tartr ate 25 Mg Tablet PO 12.5 mg BID BETH Administration Phenyleph/Shark Oi l/Min Oil/Petrol 1 applic 06/15/20 17:00 06/15/20 20:37 Phenyleph-Minera l Oil-Petrolat Oin t 28 Gm MA 1 applic QID BETH Administration Trazodone HCl 50 mg 06/13/20 20:00 06/15/20 20:33 Trazodone 50 Mg Tablet PO 50 mg DAILY@20 BETH Administration Vitals/I&O/Wt Last Vital Signs Temp 97.5 F L 06/16/20 04:00 Pulse 68 06/16/20 06:00 Resp 16 06/16/20 04:00 BP 148/69 06/16/20 04:00 Pulse Ox 98 06/16/20 04:00 06/15/20 06/16/20 06/16/20 22:59 06:59 14:59 Intake Total 240 / 358 955 / 1313 Output Total 1200 / 1200 Balance -960 / -842 955 / 113 Physical Exam Narrative: EXAM NARRATIVE: The patient is awake alert and oriented x4. No acute distress. Mood and affect are appropriate. Responses are adequate. Skin is warm and dry. MMM. Neck supple. No JVD Lungs are clear to auscultation bilaterally. No wheezes or crackles Heart S1, S2, regular Abdomen soft, nontender, bowel sounds are present. No guarding. Extremities no edema cyanosis or calf tenderness bilaterally Data : 06/16/20 04:27 06/16/20 04:27 A&P Additional A&P Information Non-ST elevation [place]. Troponin is flat. No chest pain. Continuing aspirin, Plavix, full dose of Lovenox, atorvastatin, isosorbide and metoprolol. Appreciate Dr. Álvarez's input. Cardiac catheterization is considered after improvement of her diarrhea. Diarrhea. Her abdomen is benign on examination. CT was negative for acute intra-abdominal findings. Stool testing is also unremarkable. Minimal improvement with Imodium and 1 dose of Lomotil. On lactose-free diet. Might have serial overgrowth. We will start Xifaxan empirically. Has history of colon cancer and colon resection. Small bowel syndrome is possible we will try to find out from her primary care team. We will check her TSH. Thrombocytopenia and leukopenia. Mild. Could be hemodilution. We will stop her IV fluids. Will decrease the dose of aspirin. We will ask pharmacy to adjust the dose of Lovenox depending on anti Xa level. We will closely monitor CBC. If thrombocytopenia continues worsening will consider stopping Lovenox and checking her HIT panel. Hypertension. Currently well controlled. Continue current management including as needed coverage. The plan of care was discussed with the patient and multidisciplinary team. They verbalized understanding and agreement. Attestations Medical Necessity Statement*: Plan of care still requires inpatient hospitalization. Coding Level of Care Code Acute Financial Service Representative for Stephanie Vidal
[2020-06-16] MEDS: metoprolol tartrate 25 mg Tablet 12.5 MG PO ×2 (09:26→18:29)
[2020-06-16] MEDS: famotidine 20 mg Tablet PO ×2 (09:26→18:29)
[2020-06-16] MEDS: aspirin 81 mg EC Tablet PO (09:26)
[2020-06-16] MEDS: clopidogrel 75 mg Tablet PO (09:26)
--- NOTE | 2020-06-16 09:46 | P.PN_ITS ---
Subjective Subjective: Interval history: This morning patient walked to the bathroom and had an episode of chest discomfort that was described not as bad as what she had when she came in but still made her dizzy lightheaded. -At the time of evaluation patient still complains of some chest tightness graded as 4 on 10 over intensity. Her blood pressure presently is 170/70 mmHg. -Nitroglycerin x1 was administered with relief of symptoms. -She continues to have diarrhea and had already had 5 episodes this morning. Diarrhea nonbloody and watery with specks of stool in there. Some blood streaks probably earlier due to which dose of aspirin was changed to 81 mg. Medications: Reviewed: Yes Medication Review Details: Current Medications Acetaminophen (Acetaminophen 325 Mg Tablet) 650 mg PO Q6H PRN PRN Reason: Mild/Mod Pain Or Temp >/= 101 Last Admin: 06/15/20 14:09 Dose: 650 mg Documented by: Aspirin (Aspirin 81 Mg Ec Tablet) 81 mg PO DAILY [facility] Last Admin: 06/16/20 09:26 Dose: 81 mg Documented by: Atorvastatin Calcium (Atorvastatin 40 Mg Tablet) 40 mg PO DAILY@20 [facility] Last Admin: 06/15/20 20:33 Dose: 40 mg Documented by: Clopidogrel Bisulfate (Clopidogrel 75 Mg Tablet) 75 mg PO DAILY [facility] Last Admin: 06/16/20 09:26 Dose: 75 mg Documented by: Enoxaparin Sodium (Enoxaparin 60 Mg/0.6 Ml Syringe) 50 mg SUBCUT Q12H [facility] Last Admin: 06/15/20 23:34 Dose: 50 mg Documented by: Famotidine (Famotidine 20 Mg Tablet) 20 mg PO BID [facility] Last Admin: 06/16/20 09:26 Dose: 20 mg Documented by: Isosorbide Mononitrate (Isosorbide Mononitrate Er 60 Mg Tablet) 30 mg PO DAILY@20 [facility] Last Admin: 06/15/20 20:33 Dose: 30 mg Documented by: Loperamide HCl (Loperamide 2 Mg Capsule) 2 mg PO QID PRN PRN Reason: DIARRHEA Last Admin: 06/15/20 14:09 Dose: 2 mg Documented by: Losartan Potassium (Losartan 50 Mg Tablet) 100 mg PO DAILY@20 [facility] Last Admin: 06/13/20 19:59 Dose: 100 mg Documented by: Metoprolol Tartrate (Metoprolol Tartrate 25 Mg Tablet) 12.5 mg PO BID [facility] Last Admin: 06/16/20 09:26 Dose: 12.5 mg Documented by: Morphine Sulfate (Morphine 4 Mg/Ml Sdv 1 Ml) 2 mg IVP Q4H PRN PRN Reason: SEVERE PAIN Nitroglycerin (Nitroglycerin 0.4 Mg Sublingual Tablet) 0.4 mg SUBLINGUAL Q5M PRN PRN Reason: Chest Pain Last Admin: 06/16/20 12:06 Dose: 1 tab Documented by: Ondansetron HCl (Ondansetron 2 Mg/Ml Sdv 2 Ml) 4 mg IVP Q6H PRN PRN Reason: NAUSEA AND VOMITING Phenyleph/Shark Oil/Min Oil/Petrol (Phenyleph-Mineral Oil-Petrolat Oint 28 Gm) 1 applic [place] QID [facility] Last Admin: 06/15/20 20:37 Dose: 1 applic Documented by: Rifaximin (Rifaximin 550 Mg Tablet) 550 mg PO BID [facility]; Protocol Last Admin: 06/16/20 09:21 Dose: 550 mg Documented by: Trazodone HCl (Trazodone 50 Mg Tablet) 50 mg PO DAILY@20 [facility] Last Admin: 06/15/20 20:33 Dose: 50 mg Documented by: Vitals/I&O/Wt Last Vital Signs Temp 97.5 F L 06/16/20 04:00 Pulse 81 06/16/20 08:00 Resp 16 06/16/20 04:00 BP 153/74 06/16/20 08:00 Pulse Ox 98 06/16/20 04:00 06/15/20 06/16/20 06/16/20 22:59 06:59 14:59 Intake Total 240 / 358 955 / 1313 Output Total 1200 / 1200 Balance -960 / -842 955 / 113 Physical Exam Narrative: EXAM NARRATIVE: GENERAL: Averagely built and averagely nourished in no acute distress HEENT: Extraocular movement intact. Pupils equal round reactive to light. No pallor or icterus. NECK: central trachea, no JVD. CARDIOVASCULAR SYSTEM: S1-S2 regular. No S3 or S4 present. No murmur rubs or gallops. RESPIRATORY SYSTEM: Chest clear to auscultation. No wheezes rhonchi or rubs h eard. No use of accessory muscles. ABDOMEN: Soft, and nondistended. Normal bowel sounds present. Diffuse tenderness present EXTREMITIES: No cyanosis or clubbing. No edema. No signs of chronic venous insufficiency. GLOVE STITCHER: Patient is alert oriented ?3. No focal neurological deficits. SKIN: Normal turgor and temperature. No breakdown, rash or nail changes noted. PSYCH: Normal insight and judgment. Data : 06/16/20 04:27 06/16/20 04:27 Other Labs: Laboratory Tests 09/12/19 06/13/20 06/13/20 11:44 11:34 13:20 Troponin T Gen 5 ng/L Troponin T Baseline 365 H* Troponin T 120 Minute 429.7 H Troponin T Hi Sens 6Hr Triglycerides 172 H Cholesterol 173 LDL Cholesterol, Calc 94 HDL Cholesterol 45 L 06/13/20 06/14/20 06/15/20 17:24 04:31 11:45 Troponin T Gen 5 ng/L 657 H* 410 H* Troponin T Baseline Troponin T 120 Minute Troponin T Hi Sens 6Hr 614.0 H Triglycerides Cholesterol LDL Cholesterol, Calc HDL Cholesterol Echo: I personally reviewed and interpreted this imaging study as follows: My impression: CONCLUSIONS Normal left ventricular size and systolic function, EF 55%. Grade I/IV diastolic dysfunction (abnormal relaxation filling pattern), normal to mildly elevated filling pressures. Segmental wall motion analysis difficult because of the poor ultrasonic window. Mild mitral valve regurgitation. Thickened mitral valve. Mild mitral annular calcification. There is no pericardial effusion. There are no intracardiac masses. Compared to the study from 02/03/2017, there may not be a significant change A&P Assessment and plan (1) NSTEMI (non-ST elevated myocardial infarction): -Patient has NSTEMI with ongoing intermittent chest discomfort. -She is currently medically managed with aspirin Plavix statin isosorbide mononitrate, nifedipine and therapeutic dose Lovenox. -She eventually will need cardiac catheterization however currently she has ongoing diarrhea that is making things difficult. -Continue to closely monitor on telemetry and clinically. -EKG from this morning was reviewed. EKG with sinus rhythm left axis deviation and left ventricular hypertrophy and secondary ST-T wave changes. T wave was upright in 1 and aVL and biphasic in lead III with T wave flattening in V5. Down trended yesterday. Preserved LV function on echocardiogram. I will hold off on coronary angiogram today due to ongoing diarrhea and monitor her response to rifaximin. This was discussed with the patient once again which she understood well. Status: Acute (2) Gastroenteritis: Patient apparently has a history of diarrhea intermittently ever since the colon surgery for cancer. This could be part of it. She may have acute gastroenteritis as well. Management as per the primary. -Added on rifaximin today. -Stool work-up has been negative for bacterial, parasite, C. difficile and for occult blood. Fecal lactoferrin negative. -If she continues to have diarrhea we may have to put in a rectal tube and perform coronary angiogram. Status: Acute (3) Hypertension: Currently she is normotensive. May continue on the current medications. Status: Chronic Qualifiers: Hypertension type: essential hypertension Qualified Code(s): I10 - Essential (primary) hypertension (4) Mixed hyperlipidemia: May continue on the current medication. Status: Acute (5) History of TIA (transient ischemic attack): She has no recurrence of TIA recently. We will continue the current treatment measures. Status: Acute Additional A&P Information Leukopenia Give her allowing me to participate in patient's care. Please feel free to call with questions or concerns. Attestations Medical Necessity Statement*: Patient needs hospital stay for management of NSTEMI and diarrhea Time Spent in Patient Care: 16 - 35 minutes (>than 50% of time spent in counselling and/or direct pt care on unit) . Coding Level of Care Code Established Pt Acute Cementer Hand for Stephanie Vidal Patient Type Established History Detailed Exam Detailed Medical Decision Making Moderate Complexity Diagnoses NSTEMI (non-ST elevated myocardial infarction) I21.4 Gastroenteritis K52.9 Hypertension I10 Hypertension type: essential hypertension Mixed hyperlipidemia E78.2 History of TIA (transient ischemic attack) Z86.73 Time Spent (min) 25
--- NOTE | 2020-06-16 10:10 | PC.SOCIAL ---
IMM Page 2 of IMM explained to patient. Initialed, dated, and timed and placed in chart. Copy provided to patient.
--- NOTE | 2020-06-16 10:45 | ECG_ITS ---
[facility] Test Date: 2020-06-16 Pat Name: Cris Beavers Department: Room: 112 Gender: Female Chinese Teacher: : 1935 Requested By: Wilfrido Álvarez Order Number: [id number] Fidel MD: Maddy Meade M.D. Measurements Intervals [place] Rate: 70 P: 66 NC: 184 QRS: -43 QRSD: 114 T: 13 QT: 404 QTc: 437 Interpretive Statements SINUS RHYTHM MARKED LEFT AXIS DEVIATION [QRS AXIS < -30] LEFT VENTRICULAR HYPERTROPHY AND ST-T CHANGE [VOLTAGE CRITERIA PLUS ST/T ABNORMALITY] Compared to ECG 06/14/2020 12:47:43 Supraventricular rhythm no longer present Incomplete right bundle-branch block no longer present Myocardial infarct finding no longer present ST (T wave) deviation still present Electronically Signed On 06-16-2020 22:09:18 COVERING MACHINE OPERATOR by Maddy Meade M.D. [id number]
--- NOTE | 2020-06-16 10:45 | PC.NURSE ---
Pt reported of chest tightness pt stated she has chest tightness on her left upper breast area. Pt stated she got back from using the bathroom and she got short of breath and started to have chest tightness. Pt is laying in her bed upon check. EKG taken. VS- BP 148/61,HR-76, rr-18, spO2-98% on room air. 1055-Dr. Meade in room and received verbal order to administer Nitro SL. Pt received 2 SL of Nitro as ordered.
[2020-06-16] MEDS: nitroglycerin 0.4 mg sublingual Tablet SUBLINGUAL ×4 (12:00→18:53)
[2020-06-16] MEDS: enoxaparin 60 mg/0.6 mL Syringe 50 MG SUBCUT ×2 (13:35→23:21)
[2020-06-16] MEDS: phenyleph-mineral oil-petrolat Oint 28 gm 1 APPLIC PR ×3 (13:37→20:49)
--- NOTE | 2020-06-16 13:37 | PC.NURSE ---
pt reports of reflief of chest tightness post 2 nitro SL at this time, pt is resting in bed. BP149/74.
--- NOTE | 2020-06-16 15:34 | PC.NURSE ---
No BM noted at this time when pt went to [facility] Pt voided 300 ml of yellow clear urine.
--- NOTE | 2020-06-16 18:44 | PC.NURSE ---
had soft BM at this time.
--- NOTE | 2020-06-16 19:37 | PC.NURSE ---
Received report from SHAWANDA Villalobos. Patient resting in bed. Reports more solid BM after new medication was started today. Patient is pleased with moving to different room reporting more privacy and quietness. Patient appears to feel some better as well. Assessment completed as documented. No distress observed. Discussed medications. Patient verbalized complete understanding.
[2020-06-16] MEDS: trazodone 50 mg Tablet PO (20:48)
[2020-06-16] MEDS: atorvastatin 40 mg Tablet PO (20:48)
[2020-06-16] MEDS: isosorbide mononitrate ER 60 mg Tablet 30 MG PO (20:48)
[2020-06-17 04:01] VITALS: BP 151/60; PULSE 70; O2SAT 98
[2020-06-17 05:37] LABS: Hemoglobin 12.2 g/dL (11.5-15.3); Mean Corpuscular Hemoglobin 30.5 pg (28.0-34.0); Mean Corpuscular Volume 92.5 fL (81-99); Mean Platelet Volume 9.8 fL (7.4-10.4); Platelet Count 139 10^3/cmm (130-400); Red Cell Distribution Width 13.8 % (12.1-15.1); White Blood Count 3.3 10^3/uL (4.0-10.0)
[2020-06-17 05:43] VITALS: PULSE 89
[2020-06-17 06:08] LABS: Alanine Aminotransferase 19 U/L (0-33); Albumin Level 4.2 g/dL (3.5-5.2); Alkaline Phosphatase 62 IU/L (35-105); Anion Gap 16.6 (5-19); Aspartate Amino Transferase 26 U/L (0-32); Blood Urea Nitrogen 11 mg/dL (8-23); Calcium 9.2 mg/dL (8.5-10.5); Carbon Dioxide 24 mmol/L (22-29); Chloride 103 mmol/L (98-107); Globulin 2.3 g/dL (1.3-4.6); Glucose 101 mg/dL (65-115); Magnesium 1.8 mg/dL (1.7-2.3); Osmolality Calculated 290 mOsm/kg (285-295); Potassium 3.6 mmol/L (3.5-5.1); Sodium 140 mmol/L (136-145); Thyroid Stimulating Hormone 2.97 uIU/mL (0.27-4.20); Total Bilirubin 0.7 mg/dL (0.15-1.2); Total Protein 6.5 g/dL (6.6-8.7)
[2020-06-17 06:18] LABS: Troponin T (5th) Once 294 ng/L (0-10)
[2020-06-17 06:32] LABS: Absolute Eosinophils 0.1 10^3/cmm (0.0-0.7); Absolute Segmented Neutrophil 1.4 10/cmm (1.6-7.1); Band Neutrophils Absolute 0.1 10^3/cmm (0.0-1.2); Eosinophils 4 %; Lymphocytes 43 %; Monocytes Absolute 0.3 10^3/cmm (0.1-0.6); Segmented Neutrophils 41 %; Total Cells Counted 100 (0-100)
[2020-06-17 06:33] LABS: Absolute Neutrophil 1.4 10^3/cmm (1.4-6.5); Platelet Estimate Normal (Normal); Poikilocytosis Trace; Polychromasia Trace
[2020-06-17 07:32] VITALS: BP 153/64; PULSE 73; RESP 15; TEMP 37; O2SAT 97
--- NOTE | 2020-06-17 08:30 | P.PN_ITS ---
Subjective Subjective: Interval history: Patient's diarrhea has improved. She feels better. Denies having any chest pain. Medications: Reviewed: Yes Medication Review Details: Current Medications Acetaminophen (Acetaminophen 325 Mg Tablet) 650 mg PO Q6H PRN PRN Reason: Mild/Mod Pain Or Temp >/= 101 Last Admin: 06/15/20 14:09 Dose: 650 mg Documented by: Aspirin (Aspirin 81 Mg Ec Tablet) 81 mg PO DAILY [facility] Last Admin: 06/16/20 09:26 Dose: 81 mg Documented by: Atorvastatin Calcium (Atorvastatin 40 Mg Tablet) 40 mg PO DAILY@20 [facility] Last Admin: 06/16/20 20:48 Dose: 40 mg Documented by: Clopidogrel Bisulfate (Clopidogrel 75 Mg Tablet) 75 mg PO DAILY [facility] Last Admin: 06/16/20 09:26 Dose: 75 mg Documented by: Enoxaparin Sodium (Enoxaparin 60 Mg/0.6 Ml Syringe) 50 mg SUBCUT Q12H [facility] Last Admin: 06/16/20 23:21 Dose: 50 mg Documented by: Famotidine (Famotidine 20 Mg Tablet) 20 mg PO BID [facility] Last Admin: 06/16/20 18:29 Dose: 20 mg Documented by: Isosorbide Mononitrate (Isosorbide Mononitrate Er 60 Mg Tablet) 30 mg PO DAILY@20 [facility] Last Admin: 06/16/20 20:48 Dose: 30 mg Documented by: Loperamide HCl (Loperamide 2 Mg Capsule) 2 mg PO QID PRN PRN Reason: DIARRHEA Last Admin: 06/15/20 14:09 Dose: 2 mg Documented by: Losartan Potassium (Losartan 50 Mg Tablet) 100 mg PO DAILY@20 [facility] Last Admin: 06/13/20 19:59 Dose: 100 mg Documented by: Metoprolol Tartrate (Metoprolol Tartrate 25 Mg Tablet) 12.5 mg PO BID [facility] Last Admin: 06/16/20 18:29 Dose: 12.5 mg Documented by: Morphine Sulfate (Morphine 4 Mg/Ml Sdv 1 Ml) 2 mg IVP Q4H PRN PRN Reason: SEVERE PAIN Nitroglycerin (Nitroglycerin 0.4 Mg Sublingual Tablet) 0.4 mg SUBLINGUAL Q5M PRN PRN Reason: Chest Pain Last Admin: 06/16/20 18:53 Dose: 1 tab Documented by: Ondansetron HCl (Ondansetron 2 Mg/Ml Sdv 2 Ml) 4 mg IVP Q6H PRN PRN Reason: NAUSEA AND VOMITING Phenyleph/Shark Oil/Min Oil/Petrol (Phenyleph-Mineral Oil-Petrolat Oint 28 Gm) 1 applic [place] QID [facility] Last Admin: 06/16/20 20:49 Dose: 1 applic Documented by: Rifaximin (Rifaximin 550 Mg Tablet) 550 mg PO BID [facility]; Protocol Last Admin: 06/16/20 18:29 Dose: 550 mg Documented by: Trazodone HCl (Trazodone 50 Mg Tablet) 50 mg PO DAILY@20 [facility] Last Admin: 06/16/20 20:48 Dose: 50 mg Documented by: Vitals/I&O/Wt Last Vital Signs Temp 98.6 F 06/17/20 07:32 Pulse 73 06/17/20 07:32 Resp 15 06/17/20 07:32 BP 153/64 06/17/20 07:32 Pulse Ox 97 06/17/20 07:32 06/16/20 06/17/20 06/17/20 22:59 06:59 14:59 Intake Total 356 / 592 Output Total 600 / 600 Balance -244 / -8 Physical Exam Narrative: EXAM NARRATIVE: GENERAL: Averagely built and averagely nourished in no acute distress HEENT: Extraocular movement intact. Pupils equal round reactive to light. No pallor or icterus. NECK: central trachea, no JVD. CARDIOVASCULAR SYSTEM: S1-S2 regular. No S3 or S4 present. No murmur rubs or gallops. RESPIRATORY SYSTEM: Chest clear to auscultation. No wheezes rhonchi or rubs heard. No use of accessory muscles. ABDOMEN: Soft, and nondistended. Normal bowel sounds present. Diffuse tenderness present EXTREMITIES: No cyanosis or clubbing. No edema. No signs of chronic venous insufficiency. MEDICAL LABORATORY TECHNICIANS: Patient is alert oriented ?3. No focal neurological deficits. SKIN: Normal turgor and temperature. No breakdown, rash or nail changes noted. PSYCH: Normal insight and judgment. Data : 06/17/20 04:52 06/17/20 04:52 A&P Assessment and plan (1) NSTEMI (non-ST elevated myocardial infarction): -Patient has NSTEMI with ongoing intermittent chest discomfort. -She is currently medically managed with aspirin Plavix statin isosorbide mononitrate, nifedipine and therapeutic dose Lovenox. -She eventually will need cardiac catheterization however currently she has ongoing diarrhea that is making things difficult. -Continue to closely monitor on telemetry and clinically. -EKG from this morning was reviewed. EKG with sinus rhythm left axis deviation and left ventricular hypertrophy and secondary ST-T wave changes. T wave was upright in 1 and aVL and biphasic in lead III with T wave flattening in V5. Down trended 2 days back. Preserved LV function on echocardiogram. I will plan for coronary angiogram tomorrow with Dr. Álvarez. I will keep her n.p.o. after midnight. This was discussed with the patient once again which she understood well. Status: Acute (2) Gastroenteritis: Patient apparently has a history of diarrhea intermittently ever since the colon surgery for cancer. This could be part of it. She may have acute gastroenteritis as well. Management as per the primary. -Added on rifaximin today. -Stool work-up has been negative for bacterial, parasite, C. difficile and for occult blood. Fecal lactoferrin negative. -Her diarrhea seems to have improved. She denies having any lower abdominal discomfort. Status: Acute (3) Hypertension: Blood pressure last few numbers have been mildly elevated. -Continue to closely monitor. May have to increase dose of Imdur or add back nifedipine to her regimen. Status: Chronic Qualifiers: Hypertension type: essential hypertension Qualified Code(s): I10 - Essential (primary) hypertension (4) Mixed hyperlipidemia: May continue on the current medication. Status: Acute (5) History of TIA (transient ischemic attack): She has no recurrence of TIA recently. We will continue the current treatment measures. Status: Acute Additional A&P Information Leukopenia Give her allowing me to participate in patient's care. Please feel free to call with questions or concerns. Attestations Medical Necessity Statement*: Patient needs hospital stay for management of NSTEMI and diarrhea Time Spent in Patient Care: 16 - 35 minutes (>than 50% of time spent in counselling and/or direct pt care on unit) . Coding Level of Care Code Acute Slot Tag Inserter for [facility] Diagnoses NSTEMI (non-ST elevated myocardial infarction) I21.4 Gastroenteritis K52.9 Hypertension I10 Hypertension type: essential hypertension Mixed hyperlipidemia E78.2 History of TIA (transient ischemic attack) Z86.73 Time Spent (min) 25
[2020-06-17] MEDS: famotidine 20 mg Tablet PO ×2 (09:29→18:02)
[2020-06-17] MEDS: aspirin 81 mg EC Tablet PO (09:29)
[2020-06-17] MEDS: metoprolol tartrate 25 mg Tablet 12.5 MG PO ×2 (09:29→18:02)
[2020-06-17] MEDS: clopidogrel 75 mg Tablet PO (09:33)
[2020-06-17] MEDS: enoxaparin 60 mg/0.6 mL Syringe 50 MG SUBCUT (13:40)
[2020-06-17] MEDS: phenyleph-mineral oil-petrolat Oint 28 gm 1 APPLIC PR ×3 (13:45→21:12)
[2020-06-17 14:00] VITALS: PULSE 68
--- NOTE | 2020-06-17 14:57 | P.PN_ITS ---
Subjective Subjective: Interval history: The patient reports improving diarrhea. Stool is more formed currently. No blood. She denies abdominal pain. No nausea or vomiting. No chest pain or shortness of breath. No fevers or chills. Medications: Reviewed: Yes Medication Review Details: Generic Name Dose Route Start Last Admin Trade Name Freq PRN Reason Stop Dose Admin Acetaminophen 650 mg 06/13/20 16:27 06/15/20 14:09 Acetaminophen 32 5 Mg Tablet PO 650 mg Q6H PRN Administration Mild/Mod Pain Or Temp >/= 101 Aspirin 81 mg 06/16/20 09:00 06/17/20 09:29 Aspirin 81 Mg Ec Tablet PO 81 mg DAILY BETH Administration Atorvastatin Calci um 40 mg 06/13/20 20:00 06/16/20 20:48 Atorvastatin 40 Mg Tablet PO 40 mg DAILY@20 BETH Administration Clopidogrel Bisulf ate 75 mg 06/14/20 09:00 06/17/20 09:33 Clopidogrel 75 M g Tablet PO 75 mg DAILY BETH Administration Enoxaparin Sodium 50 mg 06/14/20 00:30 06/17/20 13:40 Enoxaparin 60 Mg /0.6 Ml Syringe SUBCUT 50 mg Q12H BETH Administration Famotidine 20 mg 06/15/20 18:00 06/17/20 09:29 Famotidine 20 Mg Tablet PO 20 mg BID BETH Administration Isosorbide Mononit rate 30 mg 06/14/20 20:00 06/16/20 20:48 Isosorbide [place] itrate Er 60 Mg Ta blet PO 30 mg DAILY@20 BETH Administration Loperamide HCl 2 mg 06/15/20 09:34 06/15/20 14:09 Loperamide 2 Mg Capsule PO 2 mg QID PRN Administration DIARRHEA Losartan Potassium 100 mg 06/13/20 20:00 06/13/20 19:59 Losartan 50 Mg T ablet PO 100 mg DAILY@20 BETH Administration Metoprolol Tartrat e 12.5 mg 06/15/20 10:30 06/17/20 09:29 Metoprolol Tartr ate 25 Mg Tablet PO 12.5 mg BID BETH Administration Nitroglycerin 0.4 mg 06/13/20 16:27 06/16/20 18:53 Nitroglycerin 0. 4 Mg Sublingual Ta blet SUBLINGUAL 1 tab Q5M PRN Administration Chest Pain Phenyleph/Shark Oi l/Min Oil/Petrol 1 applic 06/15/20 17:00 06/17/20 09:30 Phenyleph-Minera l Oil-Petrolat Oin t 28 Gm [place] Not Given QID [facility] Rifaximin 550 mg 06/16/20 09:00 06/17/20 09:29 Rifaximin 550 Mg Tablet PO 550 mg BID [facility] Administration Protocol Trazodone HCl 50 mg 06/13/20 20:00 06/16/20 20:48 Trazodone 50 Mg Tablet PO 50 mg DAILY@20 [facility] Administration Vitals/I&O/Wt Last Vital Signs Temp 98.6 F 06/17/20 07:32 Pulse 73 06/17/20 07:32 Resp 15 06/17/20 07:32 BP 153/64 06/17/20 07:32 Pulse Ox 97 06/17/20 07:32 06/16/20 06/17/20 06/17/20 22:59 06:59 14:59 Intake Total 356 / 592 480 / 480 Output Total 600 / 600 350 / 350 Balance -244 / -8 130 / 130 Physical Exam Narrative: EXAM NARRATIVE: The patient is awake alert and oriented x4. No acute distress. Mood and affect are appropriate. Responses are adequate. Skin is warm and dry. MMM. Neck supple. No JVD Lungs are clear to auscultation bilaterally. No wheezes or crackles Heart S1, S2, regular Abdomen soft, nontender, bowel sounds are present. No guarding. Extremities no edema cyanosis or calf tenderness bilaterally Data : 06/17/20 04:52 06/17/20 04:52 A&P Assessment and plan (1) NSTEMI (non-ST elevated myocardial infarction): No chest pain this morning. TTE with 55% EF. Grade 1/4 diastolic dysfunction. Difficult to perform segmental wall motion analysis due to poor ultrasonic window. Mild MR. Thickened MV. Troponin this morning 675. Pending additional assessment by cardiology with possible coronary angiography. She has had some frequent stools with diarrhea today, but does not appear septic. Hemoglobin stable. Hemoccult negative. Continue Lovenox, aspirin, Plavix, statin. Not on beta-juan, concern for possible chronic arrhythmia? Hx palpitations. BP a bit soft. Will stop nifedipine. Reduce imdur dose. Hold losartan. Cardiac monitoring. Status: Acute (2) Gastroenteritis: Possible enterocolitis. No further vomiting. Still recurrent diarrhea. No overt abdominal pain, but some discomfort is present. No vomiting. Hemoccult negative. Lactoferrin positive. Pending C. difficile, stool culture, O&P. Currently no signs of sepsis, if becomes febrile, or worsening abdominal pain, or other concerning symptoms consider additional abdominal imaging. For now not on any antibiotics. Supportive care. Gentle IV hydration. P.o. diet as tolerating. This appears to be perhaps little bit better. She has had diarrhea since Thursday. Last episode of stool was this morning, at that time reports was green. Initially dark, then brownish-red. She says she is been trying to stay hydrated with Gatorade. She says she continue to take her medications.. She also has been taking Lasix, possibly leading to dehydration. Renal function appears normal. We will at this time hold off on antibiotics. If additional episodes of diarrhea collect stool studies for culture, ova and parasites, C. difficile. Monitor hemoglobin due to report of dark stool. Gentle IV hydration. Hold Lasix for now. PPI. Status: Acute Additional A&P Information Non-ST elevation [place]. Troponin is flat. No chest pain. Continuing aspirin, Plavix, full dose of Lovenox, atorvastatin, isosorbide and metoprolol. Appreciate Dr. Álvarez's input. Cardiac catheterization is considered after improvement of her diarrhea. Diarrhea. Her abdomen is benign on examination. CT was negative for acute intra-abdominal findings. Stool testing is also unremarkable. Minimal improvement with Imodium and 1 dose of Lomotil. On lactose-free diet. Might h ave bacterial overgrowth. Improving with rifaximin. Has history of colon cancer and colon resection. Small bowel syndrome is possible we will try to find out from her primary care team. TSH is normal. Thrombocytopenia and leukopenia. Mild, and most likely transient. Could be hemodilution. Currently resolving. Monitor. Hypertension. Currently well controlled. Continue current management including as needed coverage. The plan of care was discussed with the patient and multidisciplinary team. They verbalized understanding and agreement. d/w dr Meade Attestations Medical Necessity Statement*: The plan of care still requires inpatient hospitalization. Probably will undergo cardiac catheterization tomorrow. Coding Level of Care Code Acute Manager Of Distribution for [facility] Fwd Diagnoses NSTEMI (non-ST elevated myocardial infarction) I21.4 Gastroenteritis K52.9
[2020-06-17 16:00] VITALS: BP 135/68; RESP 18; O2SAT 94
[2020-06-17 19:25] VITALS: BP 158/63; PULSE 76; RESP 17; TEMP 36.7; O2SAT 95
[2020-06-17] MEDS: isosorbide mononitrate ER 60 mg Tablet 30 MG PO (21:06)
[2020-06-17] MEDS: atorvastatin 40 mg Tablet PO (21:06)
[2020-06-17] MEDS: trazodone 50 mg Tablet PO (21:07)
[2020-06-18] VITALS (59 sets, daily range): BP systolic 113–174; BP diastolic 58–87; PULSE 51–73; RESP 12–29; TEMP 35.9–36.8; O2SAT 95–99
[2020-06-18] MEDS: enoxaparin 60 mg/0.6 mL Syringe 50 MG SUBCUT (00:59)
[2020-06-18 03:40] LABS: Basophils % 0.6 %; Eosinophils # 0.1 10^3/uL (0.0-0.8); Eosinophils % 2.5 %; Hematocrit 32.4 % (37.0-47.0); Hemoglobin 10.7 g/dL (11.5-15.3); Lymphocytes # 1.2 10^3/uL (0.8-4.8); Lymphocytes % 37.4 %; Mean Corpuscular Hemoglobin 30.1 pg (28.0-34.0); Mean Platelet Volume 9.7 fL (7.4-10.4); Monocytes # 0.4 10^3/uL (0.2-0.9); Monocytes % 13.5 %; Neutrophils # 1.47 10^3/uL (1.8-7.7); Neutrophils % 45.1 %; Nucleated Red Blood Cells % 0 %; Platelet Count 109 10^3/cmm (130-400); Red Blood Count 3.56 10^6/uL (4.1-5.3); Red Cell Distribution Width 13.6 % (12.1-15.1); White Blood Count 3.3 10^3/uL (4.0-10.0)
[2020-06-18 04:01] LABS: Alanine Aminotransferase 25 U/L (0-33); Albumin Level 3.7 g/dL (3.5-5.2); Alkaline Phosphatase 55 IU/L (35-105); Anion Gap 13.2 (5-19); Aspartate Amino Transferase 28 U/L (0-32); Blood Urea Nitrogen 11 mg/dL (8-23); Calcium 8.8 mg/dL (8.5-10.5); Carbon Dioxide 24 mmol/L (22-29); Chloride 107 mmol/L (98-107); Globulin 2.3 g/dL (1.3-4.6); Glucose 100 mg/dL (65-115); Magnesium 1.7 mg/dL (1.7-2.3); Osmolality Calculated 291 mOsm/kg (285-295); Potassium 3.2 mmol/L (3.5-5.1); Sodium 141 mmol/L (136-145); Total Bilirubin 0.5 mg/dL (0.15-1.2)
[2020-06-18] MEDS: aspirin 81 mg EC Tablet PO (08:58)
[2020-06-18] MEDS: loperamide 2 mg Capsule PO (08:58)
[2020-06-18] MEDS: famotidine 20 mg Tablet PO ×2 (08:58→17:34)
[2020-06-18] MEDS: metoprolol tartrate 25 mg Tablet 12.5 MG PO ×2 (08:58→17:34)
[2020-06-18] MEDS: clopidogrel 75 mg Tablet PO (08:58)
[2020-06-18 09:23] LABS: Folate Level 13.4 ng/mL (4.8-37.3)
[2020-06-18 09:24] LABS: Ferritin 153 ng/mL (15-150); Iron 58 ug/dL (37-145); Total Iron Binding Capacity 223 mcg/dl; Unsaturated Iron Binding 165 ug/dL (112-347); Vitamin B12 413 pg/mL (232-1245)
[2020-06-18] MEDS: nitroglycerin 0.4 mg sublingual Tablet SUBLINGUAL ×2 (10:31→10:37)
--- NOTE | 2020-06-18 10:32 | PC.NURSE ---
Patient c/o heaviness in her chest and head. BP 158/75. HR 68. O2 sat 98% respirations unlabored.
--- NOTE | 2020-06-18 10:38 | PC.NURSE ---
Patient c/o continued chest pressur with radiation to right arm. Patient unable to rate pressure on the 1-10 pain scale. BP 134/75 HR 66 RR 22.
[2020-06-18] MEDS: sodium chloride 0.9% 1,000 ML 50 ML IV (12:34)
[2020-06-18] MEDS: diphenhydrAMINE 50 mg Capsule PO (12:34)
--- NOTE | 2020-06-18 15:14 | PM.PN ---
Subjective Subjective: Interval history: Patient is complaining of chest tightness and dyspnea on exertion. Also has been having some palpitations. Her diarrhea has significantly improved. No fever or chills. No cough. No other specific complaints. Medications: Reviewed: Yes Medication Review Details: Current Medications Acetaminophen (Acetaminophen 325 Mg Tablet) 650 mg PO Q6H PRN PRN Reason: Mild/Mod Pain Or Temp >/= 101 Last Admin: 06/15/20 14:09 Dose: 650 mg Documented by: Aspirin (Aspirin 81 Mg Ec Tablet) 81 mg PO DAILY [facility] Last Admin: 06/18/20 08:58 Dose: 81 mg Documented by: Atorvastatin Calcium (Atorvastatin 40 Mg Tablet) 40 mg PO DAILY@20 [facility] Last Admin: 06/17/20 21:06 Dose: 40 mg Documented by: Clopidogrel Bisulfate (Clopidogrel 75 Mg Tablet) 75 mg PO DAILY [facility] Last Admin: 06/18/20 08:58 Dose: 75 mg Documented by: Famotidine (Famotidine 20 Mg Tablet) 20 mg PO BID [facility] Last Admin: 06/18/20 08:58 Dose: 20 mg Documented by: Sodium Chloride (Sodium Chloride 0.9%) 1,000 mls @ 50 mls/hr IV .Q20H ONE Stop: 06/19/20 05:59 Last Admin: 06/18/20 12:34 Dose: 50 mls/hr Documented by: Isosorbide Mononitrate (Isosorbide Mononitrate Er 60 Mg Tablet) 30 mg PO DAILY@20 [facility] Last Admin: 06/17/20 21:06 Dose: 30 mg Documented by: Loperamide HCl (Loperamide 2 Mg Capsule) 2 mg PO QID PRN PRN Reason: DIARRHEA Last Admin: 06/18/20 08:58 Dose: 2 mg Documented by: Losartan Potassium (Losartan 50 Mg Tablet) 100 mg PO DAILY@20 [facility] Last Admin: 06/13/20 19:59 Dose: 100 mg Documented by: Metoprolol Tartrate (Metoprolol Tartrate 25 Mg Tablet) 12.5 mg PO BID [facility] Last Admin: 06/18/20 08:58 Dose: 12.5 mg Documented by: Nitroglycerin (Nitroglycerin 0.4 Mg Sublingual Tablet) 0.4 mg SUBLINGUAL Q5M PRN PRN Reason: Chest Pain Last Admin: 06/18/20 10:37 Dose: 1 tab Documented by: Ondansetron HCl (Ondansetron 2 Mg/Ml Sdv 2 Ml) 4 mg IVP Q6H PRN PRN Reason: NAUSEA AND VOMITING Phenyleph/Shark Oil/Min Oil/Petrol (Phenyleph-Mineral Oil-Petrolat Oint 28 Gm) 1 applic [place] QID [facility] Last Admin: 06/18/20 13:08 Dose: Not Given Documented by: Rifaximin (Rifaximin 550 Mg Tablet) 550 mg PO BID [facility]; Protocol Last Admin: 06/18/20 10:25 Dose: 550 mg Documented by: Trazodone HCl (Trazodone 50 Mg Tablet) 50 mg PO DAILY@20 [facility] Last Admin: 06/17/20 21:07 Dose: 50 mg Documented by: Vitals/I&O/Wt Last Vital Signs Temp 96.6 F L 06/18/20 14:46 Pulse 71 06/18/20 14:46 Resp 24 H 06/18/20 14:46 BP 158/87 06/18/20 14:46 Pulse Ox 99 06/18/20 14:46 Physical Exam Narrative: EXAM NARRATIVE: GENERAL: The patient is alert and oriented times three. Not in any acute distress. Patient is somewhat anxious HEENT: Minimal pallor, no icterus or lymphadenopathy. NECK: Trachea appears to be central. No masses noted. No JVD or thyromegaly appreciated. No carotid bruit. RESPIRATORY: Chest is symmetrical. No intercostals muscle retraction or any accessory muscle activation. There is no chest wall tenderness. Breath sounds are heard bilaterally. No rales or rhonchi heard. No evidence of any consolidation. BREASTS: Deferred. HEART: The heart sounds are normal. No S3 blood there is an S4. Short systolic murmur of grade 2/6 the left sternal border. No diastolic murmurs. ABDOMEN: No vessel pulsations or distention. Diffuse tenderness around the periumbilical region. No organomegaly appreciated. No abdominal bruit. Bowel sounds are normally heard. : Deferred. RECTAL: Deferred. LYMPHATIC: No lymphadenopathy noted in the neck or groin. EXTREMITIES: No edema or cyanosis. Peripheral pulses are palpable but somewhat weak bilaterally. MUSCULOSKELETAL: No acute joint deformities or swelling SKIN: There are no significant scars or skin rash noted. NEUROPSYCHIATRIC: The patient is alert and oriented x3. Somewhat anxious. The higher functions are grossly within normal limits. No tremors or rigidity noted. Data : 06/18/20 03:15 06/18/20 03:15 Other Labs: Laboratory Last Values WBC 3.3 10^3/uL (4.0-10.0) L 06/18/20 03:15 RBC 3.56 10^6/uL (4.1-5.3) L 06/18/20 03:15 Hgb 10.7 g/dL (11.5-15.3) L 06/18/20 03:15 Hct 32.4 % (37.0-47.0) L 06/18/20 03:15 MCV 91.0 fL (81-99) 06/18/20 03:15 MCH 30.1 pg (28.0-34.0) 06/18/20 03:15 MCHC 33.0 g/dL (30.0-36.0) 06/18/20 03:15 RDW 13.6 % (12.1-15.1) 06/18/20 03:15 Plt Count 109 10^3/cmm (130-400) L 06/18/20 03:15 MPV 9.7 fL (7.4-10.4) 06/18/20 03:15 Neut % (Auto) 45.1 % 06/18/20 03:15 Lymph % (Auto) 37.4 % 06/18/20 03:15 [place] % (Auto) 13.5 % 06/18/20 03:15 Eos % (Auto) 2.5 % 06/18/20 03:15 Baso % (Auto) 0.6 % 06/18/20 03:15 Neut # (Auto) 1.47 10^3/uL (1.8-7.7) L 06/18/20 03:15 Lymph # (Auto) 1.2 10^3/uL (0.8-4.8) 06/18/20 03:15 [place] # (Auto) 0.4 10^3/uL (0.2-0.9) 06/18/20 03:15 Eos # (Auto) 0.1 10^3/uL (0.0-0.8) 06/18/20 03:15 Baso # (Auto) 0.0 10^3/uL (0.0-0.1) 06/18/20 03:15 Nucleated RBC % (auto) 0 % 06/18/20 03:15 Total Counted 100 (0-100) 06/17/20 04:52 Atypical Lymphs % 0.0 % (0-5) 06/17/20 04:52 Absolute Neutrophils 1.4 10^3/cmm (1.4-6.5) 06/17/20 04:52 Segmented Neutrophils 41 % 06/17/20 04:52 Abs Segm Neuts (Man) 1.4 10/cmm (1.6-7.1) L 06/17/20 04:52 Band Neutrophils 2.0 % 06/17/20 04:52 Abs Band Neuts (Man) 0.1 10^3/cmm (0.0-1.2) 06/17/20 04:52 Lymphocytes (Manual) 43 % 06/17/20 04:52 Monocytes (Manual) 10.0 % 06/17/20 04:52 Absolute Monocytes 0.3 10^3/cmm (0.1-0.6) 06/17/20 04:52 Eosinophils (Manual) 4 % 06/17/20 04:52 Absolute Eosinophils 0.1 10^3/cmm (0.0-0.7) 06/17/20 04:52 Basophils (Manual) 0.0 % 06/17/20 04:52 Absolute Basophils 0.0 10^3/cmm (0.0-0.2) 06/17/20 04:52 Nucleated RBCs # 0.0 /100WBC 06/18/20 03:15 Platelet Estimate Normal (Normal) 06/17/20 04:52 Polychromasia Trace 06/17/20 04:52 Poikilocytosis Trace 06/17/20 04:52 D-Dimer 0.28 ug/mIFEU (0-0.59) 06/13/20 11:34 Sodium 141 mmol/L (136-145) 06/18/20 03:15 Potassium 3.2 mmol/L (3.5-5.1) L 06/18/20 03:15 Chloride 107 mmol/L (98-107) 06/18/20 03:15 Carbon Dioxide 24 mmol/L (22-29) 06/18/20 03:15 Anion Gap 13.2 (5-19) 06/18/20 03:15 BUN 11 mg/dL (8-23) 06/18/20 03:15 Creatinine 0.8 mg/dL (0.5-0.9) 06/18/20 03:15 GFR Calculation Not Reportable 06/18/20 03:15 Glucose 100 mg/dL (65-115) 06/18/20 03:15 Calculated Osmolality 291 mOsm/kg (285-295) 06/18/20 03:15 Calcium 8.8 mg/dL (8.5-10.5) 06/18/20 03:15 Phosphorus 3.2 mg/dL (2.5-4.5) 06/16/20 04:27 Magnesium 1.7 mg/dL (1.7-2.3) 06/18/20 03:15 Iron 58 ug/dL (37-145) 06/18/20 03:15 Iron Cancelled 06/18/20 03:15 TIBC 223 mcg/dl 06/18/20 03:15 % Saturation 26.0 % (20-50) 06/18/20 03:15 Unsat Iron Binding 165 ug/dL (112-347) 06/18/20 03:15 Ferritin 153 ng/mL (15-150) H 06/18/20 03:15 Total Bilirubin 0.5 mg/dL (0.15-1.2) 06/18/20 03:15 AST 28 U/L (0-32) 06/18/20 03:15 ALT 25 U/L (0-33) 06/18/20 03:15 Alkaline Phosphatase 55 IU/L (35-105) 06/18/20 03:15 Troponin T Gen 5 ng/L 294 ng/L (0-10) H* 06/17/20 04:52 Troponin T Baseline 365 ng/L (0-10) H* 06/13/20 11:34 Troponin T 120 Minute 429.7 ng/L (0-10) H 06/13/20 13:20 Delta Troponin T 64.7 ABS# (0-10) H* 06/13/20 13:20 Troponin T Hi Sens 6Hr 614.0 ng/L (0-10) H 06/13/20 17:24 Troponin T Hi Sens 6Hr Delta 249.0 ng/L (0-12) H* 06/13/20 17:24 Total Protein 6.0 g/dL (6.6-8.7) L 06/18/20 03:15 Albumin 3.7 g/dL (3.5-5.2) 06/18/20 03:15 Globulin 2.3 g/dL (1.3-4.6) 06/18/20 03:15 Vitamin B12 413 pg/mL (232-1245) 06/18/20 03:15 Folate 13.4 ng/mL (4.8-37.3) 06/18/20 03:15 TSH 2.97 uIU/mL (0.27-4.20) 06/17/20 04:52 SARS-CoV-2 Ag (Rapid) Negative (Negative) 06/13/20 12:34 A&P Assessment and plan (1) NSTEMI (non-ST elevated myocardial infarction): In view of her ongoing symptoms and the non-ST relation myocardial infarction, in order to further evaluate the coronary status, she requires a cardiac catheterization. This was discussed with the patient in detail which she understood well and consented to proceed. Based on the angiogram findings, further management decisions will be made Status: Acute (2) Gastroenteritis: Since her symptoms are improving, she may continue on the current measures. Status: Acute (3) Hypertension: Currently of stage II. The blood pressure has been fluctuating. Status: Chronic Qualifiers: Hypertension type: essential hypertension Qualified Code(s): I10 - Essential (primary) hypertension (4) Mixed hyperlipidemia: May continue on the current medication. Status: Acute (5) History of TIA (transient ischemic attack): She has no recurrence of TIA recently. We will continue the current treatment measures. Status: Acute Additional A&P Information Leukopenia Hypokalemia Anemia Based on the cardiac colorization findings, further recommendations will be made. 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
--- NOTE | 2020-06-18 15:23 | XACV_ITS ---
Exam Room: [facility] Ht: 157 cm Wt: 54 kg BSA: 1.55 m2 Gender: Female : 1935 Exam Priority: Routine Procedure(s): Procedure Description: Diagnostic procedure Procedure Description: Left Heart Catheterization Procedure Description: Right Heart Catheterization Diagnostic Cath Status: Urgent Diagnostic Findings * Coronary angiography shows right dominance. * The left main is a medium caliber vessel with no significant stenotic lesion. * The left anterior descending artery is a medium caliber vessel which appears to wrap around the LV apex minimally. Minimal irregular plaques are noted in the proximal and mid segment of the artery. The first 2 diagonal branches found to have an ostial around 50% stenosis. No other significant stenotic lesions were noted. * The left circumflex artery is a medium caliber nondominant vessel with no significant stenotic lesions. * The right coronary artery has a high and posterior takeoff. The proximal segment of the artery was found to have an eccentric irregular narrowing of 20 to 30%. The mid and distal artery were found to have no significant stenotic lesions. Conclusions 1. 84-year-old white female is admitted to hospital with features of a non-ST elevation myocardial infarction. She had the troponin T going up to 600. He continues to have some chest tightness/heaviness and shortness of breath. In order to further evaluate her coronary status, a cardiac catheterization was recommended. Patient underwent left heart catheterization with left and right coronary angiogram and LV angiogram today. The findings are as follows.. 2. Mild coronary artery disease, involving the left anterior descending artery and the right coronary artery. The LV gram revealing features of a Takotsubo syndrome. LV ejection fraction around 50%. LVEDP was around 22 mmHg. Recommendations * Continue current medical management and risk factor modification. Diagnostic RX Recommendation: medical therapy and/or counseling LV EDP: 22 mmHg Ventriculography Ejection Fraction: 50.0 % Left Ventriculography Findings: * The LV gram was performed in the VANN projection. The LV apex was found to be somewhat akinetic. The proximal and mid cavity was found to have good contractility. The appearance is suggestive of Takotsubo syndrome. Pressures Phase:Rest AO : 158 / 66 ( 105 ) @ 1:54:00 PM 175 / 57 ( 101 ) @ 2:10:00 PM 177 / 55 ( 102 ) @ 2:10:00 PM LV : 179 / -7 / @ 2:09:00 PM 183 / -4 / @ 2:10:00 PM Valves Phase:DefaultPhase AV : 0.0 @ 8:21:52 PM AV Mean Gradient: 0.0 @ 8:21:52 PM Clinical Evaluation EBL: 5mL-10mL Procedural Details Pre-Procedure Time Out. Identified patient by full name and date of as verbalized by the patient/guarantor. Does the consent match the physician's order: Yes. Accurate & Complete Informed Consent: Yes. Inpatient/Outpatient History & Physical on Chart: Yes. If H&P is completed, is and addenduem needed: N/A; If yes, is the addendum complete: N/A. Visualize and Verify Site with Patient/Guarantor: N/A. Relevant Radiology Images available: Yes. Pre-op teaching completed and patient verbalized understanding. The risks, benefits, and alternatives of sedation and/or procedure were discussed by physician. The patient agrees to continue. Procedure started. Correct patient, site and procedure confirmed by cath team. PERRLA. Strong, equal hand starting gate driver bilaterally. Lungs clear x 5 lobes. IV Site on Arrival: 20 gauge in the left anticubital. Oxygen started at 2liters/min via nasal canula. right radial was prepped with chloroprep then draped in the usual sterile fashion. right groin was prepped with chloroprep then draped in the usual sterile fashion. Baseline sample Acquired. HR: 59 BPM. Physician notified. Equipment: 5F - Radial. Heparinized Saline (2 units/mL), 1000 mL bag. Cardiac Cath Pack. ACIST Manifold Kit Model BT 2000. Inventory is [email or web address] 5Fr [facility]. Physician arrived. Physician scrubbed in. Immediate Pre-Procedure Time Out. Correct Patient: Yes; Correct Procedure: Yes; Correct Site: Yes; Correct Patient Position: Yes; Correct Supplies: Yes; Dried Flammable Prep: Yes; Blood Products Available: Yes;. Lidocaine 1% infiltrated to the right radial. Arterial access obtained. A 5 russian Maykel catheter in over wire. Multiple views taken of left coronary artery. Catheter redirected to the RCA. Catheter out. A 5 russian JR4 catheter in over wire. Catheter out. A 5 russian 3DRC catheter in over wire. Catheter out. A 5 russian AR MOD catheter in over wire. Multiple views taken of right coronary artery. Catheter out. A 5 russian Angled Pig catheter in over wire. EDP Sample taken: LV 179/-8,24; HR: 56 BPM; SpO2: 99%. LV gram performed in VANN @ 10 mL/second for a total of 28 mL. Pullback taken: LV 183/-5,18; AO 175/57(101); Mean: 0mmHg, Peak to Peak: 0mmHg, SEP: 5sec/min; HR: 59 BPM; SpO2: 99%. Catheter out. TR band placed. Hemostasis obtained. PERRLA. Strong, equal hand starting gate driver bilaterally. No VTE prophylaxis required. Total IV fluids: 50 mL. Medication's Wasted: Lidocaine 1% = 18 mL. Medication's Wasted: Nitro = 49.8 mg. Medication's Wasted: Heparin = 2000 units. Medication's Wasted: Other = versed 1 mg. Contrast type used: Omnipaque 300 mg/mL, 150 mL bottle. Complications: none. Estimated blood loss: 5mL-10mL. Post-op diagnosis: takotsubo mild cva blockage. Procedure completed. Patient transferred by bed to 1st floor. Access Site Site: Right Radial artery Sheath Size: 6 Fr Hemostasis Success: Unsuccessful Procedure Medications Start: 7:37 PM Stop: 7:37 PM Medication: Versed Amount: 1 mg Route: I.V. Start: 7:37 PM Stop: 7:37 PM Medication: Fentanyl Amount: 50 mcg Route: I.V. Start: 7:44 PM Stop: 7:44 PM Medication: Verapamil Amount: 5 mg Route: I.A. Start: 7:44 PM Stop: 7:44 PM Medication: Nitrogylcerin Amount: 200 mcg Route: I.A. Start: 7:44 PM Stop: 7:44 PM Medication: Fentanyl Amount: 50 mcg Route: I.V. Start: 7:47 PM Stop: 7:47 PM Medication: Heparin Amount: 4000 units Route: I.V. I, the attending physician, have reviewed and verified all procedure medications. Yes, all medications given per verbal order History/Risk Factors Hypertension: Yes Dyslipidemia: Yes Report Signatures Finalized by Dr Wilfrido Álvarez MD [facility] on 06/18/2020 09:05 PM
--- NOTE | 2020-06-18 15:30 | DCPLANNER ---
IMM completed on 06/18/20 @ [id number] with pt. Copy of rights given to pt.
--- NOTE | 2020-06-18 17:40 | P.PN_ITS ---
Subjective Subjective: Interval history: The patient reports slightly improved diarrhea. No abdominal pain. No fevers or chills. No nausea or vomiting. Denies chest pain, shortness of breath, cough, palpitations. Medications: Reviewed: Yes Medication Review Details: Generic Name Dose Route Start Last Admin Trade Name Freq PRN Reason Stop Dose Admin Acetaminophen 650 mg 06/13/20 16:27 06/15/20 14:09 Acetaminophen 32 5 Mg Tablet PO 650 mg Q6H PRN Administration Mild/Mod Pain Or Temp >/= 101 Aspirin 81 mg 06/16/20 09:00 06/18/20 08:58 Aspirin 81 Mg Ec Tablet PO 81 mg DAILY BETH Administration Atorvastatin Calci um 40 mg 06/13/20 20:00 06/17/20 21:06 Atorvastatin 40 Mg Tablet PO 40 mg DAILY@20 BETH Administration Clopidogrel Bisulf ate 75 mg 06/14/20 09:00 06/18/20 08:58 Clopidogrel 75 M g Tablet PO 75 mg DAILY BETH Administration Famotidine 20 mg 06/15/20 18:00 06/18/20 17:34 Famotidine 20 Mg Tablet PO 20 mg BID BETH Administration Sodium Chloride 1,000 mls @ 50 ml s/hr 06/18/20 10:00 06/18/20 12:34 Sodium Chloride 0.9% IV 06/19/20 05:59 50 mls/hr .Q20H ONE Administration Isosorbide Mononit rate 30 mg 06/14/20 20:00 06/17/20 21:06 Isosorbide Mobile itrate Er 60 Mg Ta blet PO 30 mg DAILY@20 BETH Administration Loperamide HCl 2 mg 06/15/20 09:34 06/18/20 08:58 Loperamide 2 Mg Capsule PO 2 mg QID PRN Administration DIARRHEA Losartan Potassium 100 mg 06/13/20 20:00 06/13/20 19:59 Losartan 50 Mg T ablet PO 100 mg DAILY@20 BETH Administration Metoprolol Tartrat e 12.5 mg 06/15/20 10:30 06/18/20 17:34 Metoprolol Tartr ate 25 Mg Tablet PO 12.5 mg BID BETH Administration Nitroglycerin 0.4 mg 06/13/20 16:27 06/18/20 10:37 Nitroglycerin 0. 4 Mg Sublingual Ta blet SUBLINGUAL 1 tab Q5M PRN Administration Chest Pain Phenyleph/Shark Oi l/Min Oil/Petrol 1 applic 06/15/20 17:00 06/18/20 16:56 Phenyleph-Minera l Oil-Petrolat Oin t 28 Gm RI Not Given QID [facility] Rifaximin 550 mg 06/16/20 09:00 06/18/20 17:34 Rifaximin 550 Mg Tablet PO 550 mg BID [facility] Administration Protocol Trazodone HCl 50 mg 06/13/20 20:00 06/17/20 21:07 Trazodone 50 Mg Tablet PO 50 mg DAILY@20 BETH Administration Vitals/I&O/Wt Last Vital Signs Temp 96.6 F L 06/18/20 14:46 Pulse 71 06/18/20 14:46 Resp 24 H 06/18/20 14:46 BP 158/87 06/18/20 14:46 Pulse Ox 99 06/18/20 14:46 Physical Exam Narrative: EXAM NARRATIVE: The patient is awake alert and oriented x4. No acute distress. Mood and affect are appropriate. Responses are adequate. Skin is warm and dry. MMM. Neck supple. No JVD Lungs are clear to auscultation bilaterally. No wheezes or crackles Heart S1, S2, regular Abdomen soft, nontender, bowel sounds are present. No guarding. Extremities no edema cyanosis or calf tenderness bilaterally Data : 06/18/20 03:15 06/18/20 03:15 A&P Assessment and plan (1) NSTEMI (non-ST elevated myocardial infarction): No chest pain this morning. TTE with 55% EF. Grade 1/4 diastolic dysfunction. Difficult to perform segmental wall motion analysis due to poor ultrasonic window. Mild MR. Thickened MV. Troponin this morning 675. Pending additional assessment by cardiology with possible coronary angiography. She has had some frequent stools with diarrhea today, but does not appear septic. Hemoglobin stable. Hemoccult negative. Continue Lovenox, aspirin, Plavix, statin. Not on beta-juan, concern for possible chronic arrhythmia? Hx palpitations. BP a bit soft. Will stop nifedipine. Reduce imdur dose. Hold losartan. Cardiac monitoring. Status: Acute (2) Gastroenteritis: Possible enterocolitis. No further vomiting. Still recurrent diarrhea. No overt abdominal pain, but some discomfort is present. No vomiting. Hemoccult negative. Lactoferrin positive. Pending C. difficile, stool culture, O&P. Currently no signs of sepsis, if becomes febrile, or worsening abdominal pain, or other concerning symptoms consider additional abdominal imaging. For now not on any antibiotics. Supportive care. Gentle IV hydration. P.o. diet as tolerating. This appears to be perhaps little bit better. She has had diarrhea since Thursday. Last episode of stool was this morning, at that time reports was green. Initially dark, then brownish-red. She says she is been trying to stay hyd rated with Gatorade. She says she continue to take her medications.. She also has been taking Lasix, possibly leading to dehydration. Renal function appears normal. We will at this time hold off on antibiotics. If additional episodes of diarrhea collect stool studies for culture, ova and parasites, C. difficile. Monitor hemoglobin due to report of dark stool. Gentle IV hydration. Hold Lasix for now. PPI. Status: Acute Additional A&P Information Non-ST elevation IA. Will undergo cardiac catheterization today. Continue current management for now. Appreciate Dr. Álvarez's input. Will wait for add itional recommendations. Diarrhea. Her abdomen is benign on examination. CT was negative for acute intra-abdominal findings. Stool testing is also unremarkable. Minimal improvement with Imodium and 1 dose of Lomotil. On lactose-free diet. Might have bacterial overgrowth. Improving with rifaximin. Has history of colon cancer and colon resection. Small bowel syndrome is possible we will try to find out from her primary care team. TSH is normal. Discussed with Dr. Hall, her primary care physician. He agreed with the current assessment. He will reevaluate the patient after discharge and continue testing and adjustments of the treatments. Thrombocytopenia and leukopenia. Mild, and most likely transient. Could be hemodilution. Currently resolving. Monitor. Hypokalemia. Replace and monitor. Hypertension. Currently well controlled. Continue current management including as needed coverage. The plan of care was discussed with the patient and multidisciplinary team. Mercy malik verbalized understanding and agreement. d/w dr Meade and Dr. Álvarez. Attestations Medical Necessity Statement*: Probably home soon. 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
--- NOTE | 2020-06-18 19:18 | W.PM.OPSUD ---
Surgery/Procedure H&P Update DATE OF PROCEDURE: June 18, 2020 DATE H&P PERFORMED: 06/13/20 H&P UPDATE INFORMATION: I have reviewed H&P completed within last 30 days, I have examined patient prior to procedure and No changes to prior documentation PREOP DIAGNOSIS: CHANGE INbowel habits PLANNED PROCEDURE: Operation Date: 06/18/20 18:00 Proposed Procedures p Cardiac Catheterization Nstmi(Left) - Wilfrido Álvarez MD PATIENT REASSESSED PRIOR TO SEDATION, WITH NO CHANGE NOTED: Yes PHYSICAL EXAM: alert, oriented x 3, clear to auscultation bilaterally and regular rate & rhythm AIRWAY EVAL/ANESTHESIA PLAN: normal airway, see other exam findings, ASA II, ASA III, Monitored Anesthesia, Local Anesthesia and Risks, benefits & alternatives of sedation and/or procedure discussed
[2020-06-18] MEDS: losartan 50 mg Tablet 100 MG PO (20:43)
[2020-06-18] MEDS: sodium chloride 0.9% 1,000 ML 100 ML IV (20:47)
[2020-06-19 04:49] LABS: Basophils % 0.5 %; Eosinophils # 0.1 10^3/uL (0.0-0.8); Eosinophils % 2.3 %; Hematocrit 33.8 % (37.0-47.0); Hemoglobin 11.3 g/dL (11.5-15.3); Mean Corpuscular HGB Conc 33.4 g/dL (30.0-36.0); Mean Corpuscular Hemoglobin 30.2 pg (28.0-34.0); Mean Corpuscular Volume 90.4 fL (81-99); Mean Platelet Volume 9.9 fL (7.4-10.4); Monocytes # 0.4 10^3/uL (0.2-0.9); Monocytes % 10.6 %; Neutrophils # 2.26 10^3/uL (1.8-7.7); Neutrophils % 58.8 %; Nucleated Red Blood Cells % 0 %; Platelet Count 125 10^3/cmm (130-400); Red Blood Count 3.74 10^6/uL (4.1-5.3); Red Cell Distribution Width 13.7 % (12.1-15.1); White Blood Count 3.9 10^3/uL (4.0-10.0)
[2020-06-19] MEDS: ALPRAZolam 0.25 mg Tablet PO (05:21)
[2020-06-19 05:29] LABS: Albumin Level 3.8 g/dL (3.5-5.2); Blood Urea Nitrogen 9 mg/dL (8-23); Calcium 8.6 mg/dL (8.5-10.5); Carbon Dioxide 20 mmol/L (22-29); Chloride 105 mmol/L (98-107); Glucose 73 mg/dL (65-115); Phosphorus 3.6 mg/dL (2.5-4.5); Sodium 139 mmol/L (136-145)
[2020-06-19 05:30] LABS: Magnesium 1.8 mg/dL (1.7-2.3)
[2020-06-19 05:34] LABS: Anion Gap 17.7 (5-19); Potassium 3.7 mmol/L (3.5-5.1)
[2020-06-19] MEDS: sodium chloride 0.9% 1,000 ML 100 ML IV (05:37)
[2020-06-19 06:00] VITALS: PULSE 51
[2020-06-19 07:08] VITALS: BP 138/60; RESP 20; TEMP 36; O2SAT 96
--- NOTE | 2020-06-19 09:02 | P.PN_ITS ---
Subjective Subjective: Interval history: Patient is feeling okay with no chest pain or palpitations. No shortness of breath. Telemetry shows no new arrhythmias. She has sinus bradycardia especially while she is vsleeping. Had a cardiac catheterization yesterday. She was found to have mild coronary artery disease. She had features of Takotsubo syndrome Medications: Reviewed: Yes Medication Review Details: Current Medications Al Hydrox/Mg Hydrox/Simethicone (Qytp-Raz-Oszjpuemp-Nadine 30 Ml Udc) 30 ml PO Q15M PRN PRN Reason: INDIGESTION Alprazolam (Alprazolam 0.25 Mg Tablet) 0.25 mg PO TID PRN PRN Reason: ANXIETY Last Admin: 06/19/20 05:21 Dose: 0.25 mg Documented by: Aspirin (Aspirin 81 Mg Ec Tablet) 81 mg PO DAILY [facility] Last Admin: 06/18/20 08:58 Dose: 81 mg Documented by: Atorvastatin Calcium (Atorvastatin 40 Mg Tablet) 40 mg PO DAILY@20 [facility] Last Admin: 06/17/20 21:06 Dose: 40 mg Documented by: Atropine Sulfate (Atropine 1 Mg/Ml Sdv 1 Ml) 0.5 mg IVP PRN PRN PRN Reason: Symptomatic bradycardia Fentanyl (Fentanyl 50 Mcg/Ml Inj 2ml) 50 mcg IVP PRN PRN PRN Reason: Prior to sheath removal Sodium Chloride (Sodium Chloride 0.9%) 1,000 mls @ 100 mls/hr IV .Q10H [facility] Last Admin: 06/19/20 05:37 Dose: 100 mls/hr Documented by: Isosorbide Mononitrate (Isosorbide Mononitrate Er 30 Mg Tablet) 30 mg PO DAILY@20 [facility] Loperamide HCl (Loperamide 2 Mg Capsule) 2 mg PO QID PRN PRN Reason: DIARRHEA Last Admin: 06/18/20 08:58 Dose: 2 mg Documented by: Losartan Potassium (Losartan 50 Mg Tablet) 100 mg PO DAILY@20 [facility] Last Admin: 06/18/20 20:43 Dose: 100 mg Documented by: Magnesium Hydroxide (Magnesium Hydroxide 30 Ml Udc) 30 ml PO DAILY PRN PRN Reason: CONSTIPATION Metoprolol Tartrate (Metoprolol Tartrate 25 Mg Tablet) 12.5 mg PO BID [facility] Last Admin: 06/18/20 17:34 Dose: 12.5 mg Documented by: Naloxone HCl (Naloxone 0.4 Mg/Ml Sdv) 0.1 mg IVP Q2M PRN PRN Reason: RESPIRATORY RATE < 8/MIN Nitroglycerin (Nitroglycerin 0.4 Mg Sublingual Tablet) 0.4 mg SUBLINGUAL Q5M PRN PRN Reason: Chest Pain Last Admin: 06/18/20 10:37 Dose: 1 tab Documented by: Ondansetron HCl (Ondansetron 2 Mg/Ml Sdv 2 Ml) 4 mg IVP Q6H PRN PRN Reason: NAUSEA AND VOMITING Phenyleph/Shark Oil/Min Oil/Petrol (Phenyleph-Mineral Oil-Petrolat Oint 28 Gm) [address] QID [facility] Last Admin: 06/18/20 16:56 Dose: Not Given Documented by: Rifaximin (Rifaximin 550 Mg Tablet) 550 mg PO BID [facility]; Protocol Last Admin: 06/18/20 17:34 Dose: 550 mg Documented by: Temazepam (Temazepam 15 Mg Capsule) 15 mg PO BEDTIME PRN PRN Reason: INSOMNIA Trazodone HCl (Trazodone 50 Mg Tablet) 50 mg PO DAILY@20 [facility] Last Admin: 06/17/20 21:07 Dose: 50 mg Documented by: Vitals/I&O/Wt Last Vital Signs Temp 96.8 F L 06/19/20 07:08 Pulse 51 L 06/19/20 06:00 Resp 20 H 06/19/20 07:08 BP 138/60 06/19/20 07:08 Pulse Ox 96 06/19/20 07:08 06/18/20 06/19/20 06/19/20 22:59 06:59 14:59 Intake Total 360 / 360 2823.333 / 3183.333 240 / 240 Output Total 600 / 600 700 / 1300 Balance -240 / -240 2123.333 / 1883.333 240 / 240 Physical Exam Narrative: EXAM NARRATIVE: GENERAL: The patient is alert and oriented times three. Not in any acute distress. Patient is somewhat anxious HEENT: Minimal pallor, no icterus or lymphadenopathy. NECK: Trachea appears to be central. No masses noted. No JVD or thyromegaly appreciated. No carotid bruit. RESPIRATORY: Chest is symmetrical. No intercostals muscle retraction or any accessory muscle activation. There is no chest wall tenderness. Breath sounds are heard bilaterally. No rales or rhonchi heard. No evidence of any consolidation. BREASTS: Deferred. HEART: The heart sounds are normal. No S3 blood there is an S4. Short systolic murmur of grade 2/6 the left sternal border. No diastolic murmurs. ABDOMEN: No vessel pulsations or distention. Diffuse tenderness around the periumbilical region. No organomegaly appreciated. No abdominal bruit. Bowel sounds are normally heard. : Deferred. RECTAL: Deferred. LYMPHATIC: No lymphadenopathy noted in the neck or groin. EXTREMITIES: No hematoma or bleeding at the arterial puncture site. MUSCULOSKELETAL: No acute joint deformities or swelling SKIN: There are no significant scars or skin rash noted. NEUROPSYCHIATRIC: The patient is alert and oriented x3. Somewhat anxious. The higher functions are grossly within normal limits. No tremors or rigidity noted. Const: COMMON NORMALS: alert Resp: COMMON NORMALS: clear to auscultation bilaterally AUSCULTATION: clear to auscultation bilaterally Neuro: SENSORIUM/ORIENTATION: Yes alert Data : 06/19/20 03:29 06/19/20 03:29 Other Labs: Laboratory Last Values WBC 3.9 10^3/uL (4.0-10.0) L 06/19/20 03:29 RBC 3.74 10^6/uL (4.1-5.3) L 06/19/20 03:29 Hgb 11.3 g/dL (11.5-15.3) L 06/19/20 03:29 Hct 33.8 % (37.0-47.0) L 06/19/20 03:29 MCV 90.4 fL (81-99) 06/19/20 03:29 MCH 30.2 pg (28.0-34.0) 06/19/20 03:29 MCHC 33.4 g/dL (30.0-36.0) 06/19/20 03:29 RDW 13.7 % (12.1-15.1) 06/19/20 03:29 Plt Count 125 10^3/cmm (130-400) L 06/19/20 03:29 MPV 9.9 fL (7.4-10.4) 06/19/20 03:29 Neut % (Auto) 58.8 % 06/19/20 03:29 Lymph % (Auto) 27.0 % 06/19/20 03:29 [place] % (Auto) 10.6 % 06/19/20 03:29 Eos % (Auto) 2.3 % 06/19/20 03:29 Baso % (Auto) 0.5 % 06/19/20 03:29 Neut # (Auto) 2.26 10^3/uL (1.8-7.7) 06/19/20 03:29 Lymph # (Auto) 1.0 10^3/uL (0.8-4.8) 06/19/20 03:29 [place] # (Auto) 0.4 10^3/uL (0.2-0.9) 06/19/20 03:29 Eos # (Auto) 0.1 10^3/uL (0.0-0.8) 06/19/20 03:29 Baso # (Auto) 0.0 10^3/uL (0.0-0.1) 06/19/20 03:29 Nucleated RBC % (auto) 0 % 06/19/20 03:29 Total Counted 100 (0-100) 06/17/20 04:52 Atypical Lymphs % 0.0 % (0-5) 06/17/20 04:52 Absolute Neutrophils 1.4 10^3/cmm (1.4-6.5) 06/17/20 04:52 Segmented Neutrophils 41 % 06/17/20 04:52 Abs Segm Neuts (Man) 1.4 10/cmm (1.6-7.1) L 06/17/20 04:52 Band Neutrophils 2.0 % 06/17/20 04:52 Abs Band Neuts (Man) 0.1 10^3/cmm (0.0-1.2) 06/17/20 04:52 Lymphocytes (Manual) 43 % 06/17/20 04:52 Monocytes (Manual) 10.0 % 06/17/20 04:52 Absolute Monocytes 0.3 10^3/cmm (0.1-0.6) 06/17/20 04:52 Eosinophils (Manual) 4 % 06/17/20 04:52 Absolute Eosinophils 0.1 10^3/cmm (0.0-0.7) 06/17/20 04:52 Basophils (Manual) 0.0 % 06/17/20 04:52 Absolute Basophils 0.0 10^3/cmm (0.0-0.2) 06/17/20 04:52 Nucleated RBCs # 0.0 /100WBC 06/19/20 03:29 Platelet Estimate Normal (Normal) 06/17/20 04:52 Polychromasia Trace 06/17/20 04:52 Poikilocytosis Trace 06/17/20 04:52 D-Dimer 0.28 ug/mIFEU (0-0.59) 06/13/20 11:34 Sodium 139 mmol/L (136-145) 06/19/20 03:29 Potassium 3.7 mmol/L (3.5-5.1) 06/19/20 03:29 Chloride 105 mmol/L (98-107) 06/19/20 03:29 Carbon Dioxide 20 mmol/L (22-29) L 06/19/20 03:29 Anion Gap 17.7 (5-19) 06/19/20 03:29 BUN 9 mg/dL (8-23) 06/19/20 03:29 Creatinine 0.6 mg/dL (0.5-0.9) 06/19/20 03:29 GFR Calculation Not Reportable 06/19/20 03:29 Glucose 73 mg/dL (65-115) 06/19/20 03:29 Calculated Osmolality 291 mOsm/kg (285-295) 06/18/20 03:15 Calcium 8.6 mg/dL (8.5-10.5) 06/19/20 03:29 Phosphorus 3.6 mg/dL (2.5-4.5) 06/19/20 03:29 Magnesium 1.8 mg/dL (1.7-2.3) 06/19/20 03:29 Iron 58 ug/dL (37-145) 06/18/20 03:15 Iron Cancelled 06/18/20 03:15 TIBC 223 mcg/dl 06/18/20 03:15 % Saturation 26.0 % (20-50) 06/18/20 03:15 Unsat Iron Binding 165 ug/dL (112-347) 06/18/20 03:15 Ferritin 153 ng/mL (15-150) H 06/18/20 03:15 Total Bilirubin 0.5 mg/dL (0.15-1.2) 06/18/20 03:15 AST 28 U/L (0-32) 06/18/20 03:15 ALT 25 U/L (0-33) 06/18/20 03:15 Alkaline Phosphatase 55 IU/L (35-105) 06/18/20 03:15 Troponin T Gen 5 ng/L 294 ng/L (0-10) H* 06/17/20 04:52 Troponin T Baseline 365 ng/L (0-10) H* 06/13/20 11:34 Troponin T 120 Minute 429.7 ng/L (0-10) H 06/13/20 13:20 Delta Troponin T 64.7 ABS# (0-10) H* 06/13/20 13:20 Troponin T Hi Sens 6Hr 614.0 ng/L (0-10) H 06/13/20 17:24 Troponin T Hi Sens 6Hr Delta 249.0 ng/L (0-12) H* 06/13/20 17:24 Total Protein 6.0 g/dL (6.6-8.7) L 06/18/20 03:15 Albumin 3.8 g/dL (3.5-5.2) 06/19/20 03:29 Globulin 2.3 g/dL (1.3-4.6) 06/18/20 03:15 Vitamin B12 413 pg/mL (232-1245) 06/18/20 03:15 Folate 13.4 ng/mL (4.8-37.3) 06/18/20 03:15 TSH 2.97 uIU/mL (0.27-4.20) 06/17/20 04:52 SARS-CoV-2 Ag (Rapid) Negative (Negative) 06/13/20 12:34 A&P Assessment and plan (1) NSTEMI (non-ST elevated myocardial infarction): Patient apparently had type II myocardial infarction. It may be appropriate to continue the Plavix 75 mg daily with the baby aspirin 1 tablet daily for 3 months. (2) Gastroenteritis: Management as per the primary Status: Resolved (3) Hypertension: Currently of stage II. The blood pressure has been fluctuating. Status: Chronic Qualifiers: Hypertension type: essential hypertension Qualified Code(s): I10 - Essential (primary) hypertension (4) Mixed hyperlipidemia: May continue on the current medication. (5) History of TIA (transient ischemic attack): She has no recurrence of TIA recently. We will continue the current treatment measures. Additional A&P Information Leukopenia Hypokalemia Anemia If she continues remain stable, may be discharged home today from a cardiac standpoint. I may see her in the office as scheduled. 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
[2020-06-19] MEDS: aspirin 81 mg EC Tablet PO (09:08)
[2020-06-19] MEDS: metoprolol tartrate 25 mg Tablet 12.5 MG PO (09:08)
--- NOTE | 2020-06-19 10:02 | PM.DCS ---
Discharge Providers Date of Admission: 06/13/20 13:20 Date of Discharge: June 19, 2020 Attending Provider at Admission: Angelo Link Attending Provider at Discharge: Donald Reynolds Primary Care Provider: CARRILLO Duran Diagnoses at Discharge Discharge Diagnosis (1) NSTEMI (non-ST elevated myocardial infarction): Status: Acute (2) Gastroenteritis: Status: Acute (3) Hypertension: Status: Chronic Qualifiers: Hypertension type: essential hypertension Qualified Code(s): I10 - Essential (primary) hypertension (4) Mixed hyperlipidemia: Status: Acute (5) History of TIA (transient ischemic attack): Status: Acute Reason for Visit Reason for Visit: COVID SYMPTOMS / CHEST PAIN Hospital Course Hospital Course Discharge diagnoses and problem list Non-ST elevation GA. Status post cardiac catheterization by Dr. Álvarez which showed mild coronary artery disease. Affected vessels or LAD and RCA. No PCI was done. Medical management is recommended. Dual antiplatelet therapy with aspirin and Plavix for 3 months. Due to persistent bradycardia no beta-juan is ordered. Currently there is no chest pain or other cardiac symptoms. 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 EF of 50%. Currently there is no evidence of congestive heart failure. We will continue home Lasix and losartan. She is also on is a Sorbide. Further adjustments to the treatments per Dr. Álvarez after discharge. Diarrhea. Her abdomen is benign on examination. CT was negative for acute intra-abdominal findings. Stool testing is also unremarkable. Minimal improvement with Imodium and Lomotil. On lactose-free diet. Might have bacterial overgrowth. Improving with rifaximin. Has history of colon cancer and colon resection. Small bowel syndrome is possible we will try to find out from her primary care team. TSH is normal. She will follow up with Dr. Hall, her primary care physician for further monitoring and adjustments of the treatments. Additional testing might be necessary. Thrombocytopenia, anemia and leukopenia. Mild and stable. We will defer to the primary care physician to manage this problem. Hypokalemia. Replaced. Please continue monitoring. Hypertension. Currently well controlled. Currently the patient is doing well and is eager to go home. She reports improved diarrhea. Denies chest pain, shortness of breath, cough, palpitations, dizziness or weakness. She is instructed to come back to emergency room if she develops any of these symptoms or worsening diarrhea or any other GI complaints. She verbalized understanding and agreement. Physical Exam Narrative: EXAM NARRATIVE: The patient is awake alert and oriented x4. No acute distress. Mood and affect are appropriate. Responses are adequate. Skin is warm and dry. MMM. Neck supple. No JVD Lungs are clear to auscultation bilaterally. No wheezes or crackles Heart S1, S2, regular Abdomen soft, nontender, bowel sounds are present. No guarding. 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 request for service Routin e Exams 06/18/20 15:23 Completed XR chest 1V estela ble [id number] Stat Exams 06/13/20 11:19 Completed CV echo complete* [id number] Urgent Ultrasound 06/13/20 14:41 Completed Pending at discharge Category Date Time Status Clostridioides Di fficile PCR Routin e Lab 06/14/20 01:00 Results Enteric Bacterial Panel by PCR Rout ine Lab 06/14/20 01:00 Results Enteric Parasite Panel by PCR Routi ne Lab 06/14/20 01:00 Results Immunochemical Fe munira OCB Routine Lab 06/18/20 07:32 Uncollected Lactoferrin Routi ne Lab 06/14/20 01:00 Results Labs from last 24 hours 06/19/20 06/19/20 06/19/20 03:29 03:29 03:29 WBC 3.9 L RBC 3.74 L Hgb 11.3 L Hct 33.8 L MCV 90.4 MCH 30.2 MCHC 33.4 RDW 13.7 Plt Count 125 L MPV 9.9 Neut % (Auto) 58.8 Lymph % (Auto) 27.0 [place] % (Auto) 10.6 Eos % (Auto) 2.3 Baso % (Auto) 0.5 Neut # (Auto) 2.26 Lymph # (Auto) 1.0 [place] # (Auto) 0.4 Eos # (Auto) 0.1 Baso # (Auto) 0.0 Nucleated RBC % (a uto) 0 Nucleated RBCs # 0.0 Sodium 139 Potassium 3.7 Chloride 105 Carbon Dioxide 20 L Anion Gap 17.7 BUN 9 Creatinine 0.6 GFR Calculation Not Reportable Glucose 73 Calcium 8.6 Phosphorus 3.6 Magnesium 1.8 Albumin 3.8 Vitals: Last Vital Signs Temp 96.8 F L 06/19/20 07:08 Pulse 51 L 06/19/20 06:00 Resp 20 H 06/19/20 07:08 BP 138/60 06/19/20 07:08 Pulse Ox 96 06/19/20 07:08 Discharge Plan Discharge Patient Disposition: Home Condition: Stable Prescriptions: New loperamide 2 mg Capsule 2 mg PO QID PRN (Reason: Diarrhea) Qty: 30 RF: 0 aspirin 81 mg Tablet,Delayed Release (Dr/Ec) 81 mg PO DAILY Qty: 30 RF: 0 Xifaxan 550 mg Tablet 550 mg PO BID Qty: 20 RF: 0 Plavix 75 mg tablet 75 mg PO DAILY Qty: 90 RF: 0 Continued nitroglycerin [Nitrostat] 0.4 mg tablet, sublingual 0.4 mg SUBLINGUAL Q5M PRN (Reason: Chest Pain) 30 Days Qty: 30 RF: 5 trazodone 50 mg Tablet 50 mg PO DAILY@20 RF: 0 Lasix 20 mg Tablet 20 mg PO DAILY@08 RF: 0 atorvastatin 40 mg tablet 40 mg PO DAILY@20 RF: 0 isosorbide mononitrate 60 mg tablet extended release 24 hr 60 mg PO DAILY@20 RF: 0 losartan 100 mg tablet 100 mg PO DAILY@20 RF: 0 Probiotic 3 billion cell capsule 3,000 mmu cells PO BID@08,20 RF: 0 Discontinued aspirin 325 mg tablet 325 mg PO DAILY RF: 0 Dexilant 30 mg Capsule,Biphase Delayed Releas 30 mg PO DAILY@08 RF: 0 nifedipine 30 mg tablet extended release 30 mg PO DAILY@20 RF: 0 Discharge Orders: Discharge Order (Routine); Ordered 06/19/20 Ordered By: Donald Reynolds Other Ambulatory Orders: Complete Blood Count w/Auto (Routine) Timeframe: 1 Week Location: Determined by Patient Ordered By: Donald Reynolds Comprehensive Metabolic Panel (Routine) Timeframe: 1 Week Facility: [facility] - Location: Lab - Main Lab Ordered By: Donald Reynolds Referrals: Napoleon Hall MD [Physician] - 1 week (management of chronic diarrhea management of mild pancytopenia management of HTN) Wilfrido Álvarez MD [Physician] - 2 weeks Lisa Patel FNP [Nurse Practitioner] - Discharge Diet: Regular Discharge Activity: Resume usual activity Patient Instructions: Phenazopyridine (By mouth), Loperamide (By mouth), Aspirin (By mouth), Clopidogrel (By mouth), Rifaximin (By mouth), Left Heart Catheterization (DC), Urinary Tract Infection in Women (DC), Post Angiogram Home Care Instructions Activity Restrictions/Additional Instructions: Please make an appointment to be seen in the office the nurse practitioner next week. 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
[2020-06-19 11:27] VITALS: BP 150/56; PULSE 65; RESP 18; TEMP 36.1; O2SAT 96
[2020-06-19 13:30] VITALS: BP 150/56; PULSE 65; RESP 18; TEMP 36.1; O2SAT 96
--- NOTE | 2020-06-19 14:01 | PC.NURSE ---
Patient discharge home self care patient provided with discharge instructions an follow up appointments patient verbalized understanding of all instructions given. Iv discontinued cath intact min bleeding noted. patient assisted to wheel chair accompanied to private vehicle by staff patient alert oriented and in
--- NOTE | 2020-06-20 10:54 | PC.SOCIAL ---
Xifaxan was not covered by insurance and the out of pocket $900. Dr Reynolds indicates she can disregard this medication and followup with PCP. [place] [facility] [place] addition patient sees Dr Hall on 06/27/2020 so she asked that the appt with Yuki be cancelled that is scheduled for 06/28/2020. She will not need to see both. Called [facility] and cancelled this appt. Spoke with Cris.
== END 2020-06-19 13:45 | disposition home or self-care (01) | DRG 281 ==
LOC: ER 15:11 → CSU 15:52
PROVIDERS: Internal Medicine Cardiovascular Disease; Admitting Provider Internal Medicine; Emergency Provider Family Medicine; PCP Nurse Practitioner; Visit Provider Internal Medicine
PROC: 4A023N8 Measurement of Cardiac Sampling and Pressure, Bilateral, Percutaneous Approach (ICD-10-PCS; principal; 2020-06-18 18:00)
DX: I21.4 Non-ST elevation (NSTEMI) myocardial infarction (principal); I51.81 Takotsubo syndrome; K52.9 Noninfective gastroenteritis and colitis, unspecified; E78.2 Mixed hyperlipidemia; Z86.73 Personal history of transient ischemic attack (TIA), and cerebral infarction without residual deficits; I25.10 Atherosclerotic heart disease of native coronary artery without angina pectoris; Z66 Do not resuscitate; R00.1 Bradycardia, unspecified; D69.6 Thrombocytopenia, unspecified; E87.6 Hypokalemia; Z79.82 Long term (current) use of aspirin; I35.1 Nonrheumatic aortic (valve) insufficiency; K21.9 Gastro-esophageal reflux disease without esophagitis; G89.29 Other chronic pain; M54.9 Dorsalgia, unspecified; Z85.038 Personal history of other malignant neoplasm of large intestine; Z87.891 Personal history of nicotine dependence
CPT/HCPCS: 12345; 36415; 71045; 80053; 80069; 82274; 82607; 82728; 82746; 83540; 83550; 83630; 83735; 84443; 84484; 85007; 85025; 85027; 85378; 87426; 87493; 87506; 93005; 93306; 93452; 96372; 96375; 99283; C1769; C1887; C1894; J1644; J1650; J2250; J2270; J3010; J3490; J7030; Q0163; Q9967

== ENCOUNTER 2020-06-26 10:41 | Outpatient (CLI) | payer MEDICARE, OTHER, SELFPAY ==
--- NOTE | 2020-06-26 10:45 | USCV_ITS ---
Cris Beavers Age: 84 Gender: F : 1935 Exam Date: 06/26/2020 10:54 Ordering Phys: Lisa Patel Technologist: Maribell Black Exam Location: [facility] [place] Indication: pain in right arm Risk Factors: Previous Vascular Surgery: s/p radial cath 06/21/20 Right BP: 130.00 / Left BP: / RIGHT LEFT PSV PSV (cm/s) (cm/s) Waveform Waveform Triphasic 112.8 Subclavian Proximal Triphasic 97.0 Subclavian Distal Triphasic 73.0 Axillary Triphasic 103.6 Brachial Proximal Triphasic 79.1 Brachial Mid Triphasic 97.1 Brachial at AC Triphasic 53.3 Radial Proximal Triphasic 53.0 Radial Mid Triphasic 62.4 Radial at Wrist Triphasic 59.6 Ulnar Proximal Triphasic 97.4 Ulnar Mid Triphasic 88.2 Ulnar at Wrist 0.61 Radial/Brachial Index 0.92 Ulnar/Brachial Index FINDINGS Normal Doppler flow velocities in the right upper extremity arteries Normal radial brachial index Slightly diminished ulnar brachial index on the right side Normal arterial Doppler waveforms in the ulnar and brachial artery on the right side CONCLUSIONS Patent right upper extremity arteries with a normal Doppler velocities and waveforms No evidence of any significant arterial obstruction in the ulnar /brachial arteries, based on the above findings Slightly diminished radial brachial index with normal Doppler waveform could suggest spasm in the artery Dr Wilfrido Álvarez MD [facility] (Electronically Signed) Final Date: 27 June 2020 08:15 S
== END 2020-06-26 10:42 | disposition home or self-care (01) ==
PROVIDERS: PCP Nurse Practitioner; Visit Provider Nurse Practitioner Family
DX: M79.601 Pain in right arm (principal)
CPT/HCPCS: 93931

== ENCOUNTER → 2020-09-11 10:00 | Outpatient (BNVA) | payer MEDICARE, OTHER, SELFPAY | PROVIDERS: PCP Internal Medicine; Visit Provider Obstetrics & Gynecology Gynecology | DX: E78.5 Hyperlipidemia, unspecified (principal) | CPT/HCPCS: 80061 ==

== ENCOUNTER → 2020-11-16 11:30 | Outpatient (BNVA) | payer MEDICARE, OTHER, SELFPAY | PROVIDERS: PCP Internal Medicine; Visit Provider Nurse Practitioner | DX: I10 Essential (primary) hypertension (principal) | CPT/HCPCS: 80053; 80061; 85025 ==

== ENCOUNTER → 2020-11-19 12:30 | Outpatient (BNVA) | payer MEDICARE, OTHER, SELFPAY | PROVIDERS: PCP Internal Medicine; Visit Provider Nurse Practitioner | DX: I10 Essential (primary) hypertension (principal); Z87.440 Personal history of urinary (tract) infections | CPT/HCPCS: 81003; 87086 ==

== ENCOUNTER → 2020-12-19 11:12 | Outpatient (BNVA) | payer MEDICARE, OTHER, SELFPAY | PROVIDERS: PCP Internal Medicine; Visit Provider Nurse Practitioner Family | DX: R07.89 Other chest pain (principal); R07.81 Pleurodynia | CPT/HCPCS: 71046 ==

== ENCOUNTER 2021-01-15 11:54 | Observation (INO) | payer MEDICARE, OTHER, SELFPAY ==
[2021-01-15] VITALS (10 sets, daily range): BP systolic 113–181; BP diastolic 70–80; PULSE 60–79; RESP 12–18; TEMP 36.4–36.8; O2SAT 96–98; BMI 22.1
--- NOTE | 2021-01-15 11:58 | ECG_ITS ---
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 Measurements Intervals [place] Rate: 65 P: 76 [place]: 166 QRS: -51 QRSD: 104 T: -47 QT: 400 QTc: 418 Interpretive Statements SINUS RHYTHM MARKED LEFT AXIS DEVIATION [QRS AXIS < -30] INCOMPLETE RIGHT BUNDLE BRANCH BLOCK VOLTAGE CRITERIA FOR LVH POSSIBLE SEPTAL MYOCARDIAL INFARCTION,PROBABLY OLD Compared to ECG 06/16/2020 11:10:56 Incomplete right bundle-branch block now present Myocardial infarct finding now present ST (T wave) deviation no longer present Electronically Signed On 01-15-2021 16:43:24 CDT by Maddy Meade M.D. [id number]
--- NOTE | 2021-01-15 11:58 | XRR_ITS ---
PROCEDURE INFORMATION: Exam: XR Chest Exam date and time: 01/15/2021 11:58 AM Age: 85 years old Clinical indication: Pain; Angina pectoris; Additional info: Cp TECHNIQUE: Imaging protocol: XR of the chest. Views: 1 view. COMPARISON: CR XR chest 2V* [id number] 12/19/2020 11:11 AM FINDINGS: Lungs: No focal consolidation. No pulmonary edema. Lungs are mildly hyperinflated. Pleural spaces: No pleural effusion. No pneumothorax. Heart/Mediastinum: Stable mild enlargement of the cardiac silhouette. Mediastinal contours are unremarkable. Vasculature: Stable vascular calcifications in the aorta. Bones/joints: Bones are diffusely osteopenic. XR/XR chest 1V portable [id number] IMPRESSION: 1. No acute cardiopulmonary process. 2. Incidental/nonacute findings are listed in the report.
[2021-01-15] MEDS: aspirin 81 mg Chew Tablet 324 MG PO (12:18)
[2021-01-15] MEDS: nitroglycerin 0.4 mg sublingual Tablet SUBLINGUAL (12:18)
[2021-01-15 12:19] LABS: Basophils # 0.1 10^3/uL (0.0-0.1); Basophils % 1.1 %; Eosinophils % 0.6 %; Hemoglobin 12.9 g/dL (11.5-15.3); Lymphocytes # 1.6 10^3/uL (0.8-4.8); Lymphocytes % 28.9 %; Mean Corpuscular HGB Conc 33.9 g/dL (30.0-36.0); Mean Corpuscular Hemoglobin 31.5 pg (28.0-34.0); Mean Corpuscular Volume 92.7 fL (81-99); Mean Platelet Volume 9.4 fL (7.4-10.4); Monocytes # 0.5 10^3/uL (0.2-0.9); Monocytes % 8.8 %; Neutrophils # 3.23 10^3/uL (1.8-7.7); Neutrophils % 60.2 %; Nucleated Red Blood Cells % 0 %; Platelet Count 172 10^3/cmm (130-400); Red Cell Distribution Width 13.3 % (12.1-15.1); White Blood Count 5.4 10^3/uL (4.0-10.0)
[2021-01-15 12:53] LABS: INR 1.03 (0.8-1.2)
[2021-01-15 12:56] LABS: D Dimer <= 0.27 ug/mIFEU (0-0.59)
[2021-01-15 13:09] LABS: Alanine Aminotransferase 17 U/L (0-33); Albumin Level 4.2 g/dL (3.5-5.2); Alkaline Phosphatase 58 IU/L (35-105); Anion Gap 16.3 (5-19); Aspartate Amino Transferase 22 U/L (0-32); Blood Urea Nitrogen 19 mg/dL (8-23); Calcium 9.3 mg/dL (8.5-10.5); Carbon Dioxide 23 mmol/L (22-29); Chloride 102 mmol/L (98-107); Globulin 2.5 g/dL (1.3-4.6); Glucose 94 mg/dL (65-115); NT Pro B Type Natriuretic Pept 490 pg/mL (0-450); Osmolality Calculated 286 mOsm/kg (285-295); Potassium 4.3 mmol/L (3.5-5.1); Sodium 137 mmol/L (136-145); Total Bilirubin 0.5 mg/dL (0.15-1.2); Total Protein 6.7 g/dL (6.6-8.7)
[2021-01-15 13:24] LABS: Troponin(5th) Baseline 9 ng/L (0-10)
[2021-01-15 13:37] LABS: Add Urine Microscopic? YES; Bilirubin Urine 1+ (Negative); Blood Urine 2+ (Negative); Glucose Urine UA Norm (Normal); Ketones Urine Negative (Negative); Leukocyte Esterase Urine 2+ (Negative); Nitrate Urine Negative (Negative); Protein Urine Trace (Negative); Specific Gravity, Urine 1.005 (1.005-1.030); Urine Appearance SL Hazy (CLEAR); Urine Color Yellow (Yellow); Urobilinogen Urine 1 mg/dL (Negative); pH Urine 7 (5-7)
[2021-01-15 13:39] LABS: Add Urine Culture? No; Bacteria Urine 2+ /hpf; Mucus Urine 1+ /hpf; RBC Urine 15-25 /hpf (0-2); Squamous Epithelial Cell Urine 25-40 /hpf (0-5); WBC Urine 80-100 /hpf (0-5)
--- NOTE | 2021-01-15 13:58 | ECG_ITS ---
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 Measurements Intervals [place] Rate: 58 P: 75 [place]: 166 QRS: -48 QRSD: 108 T: -11 QT: 411 QTc: 406 Interpretive Statements SINUS BRADYCARDIA MARKED LEFT AXIS DEVIATION [QRS AXIS < -30] INCOMPLETE RIGHT BUNDLE BRANCH BLOCK MODERATE VOLTAGE CRITERIA FOR LVH, CONSIDER NORMAL VARIANT POSSIBLE SEPTAL MYOCARDIAL INFARCTION,PROBABLY OLD Compared to ECG 01/15/2021 12:11:18 Sinus rhythm no longer present Myocardial infarct finding still present Electronically Signed On 01-15-2021 16:48:24 CDT by Maddy Meade M.D. [id number]
[2021-01-15 14:55] LABS: Troponin 5 2HR 9.75 ng/L (0-10); Troponin 5 2HR Delta 0.75 ABS# (0-10)
[2021-01-15] MEDS: cefTRIAXone 1,000 MG in sodium chloride 0.9% (plus) 100 ML 100 MG IV (15:00)
--- NOTE | 2021-01-15 15:01 | PC.NURSE ---
Pt reports mid-sternal stinging sensation that comes and goes.
--- NOTE | 2021-01-15 17:58 | ECG_ITS ---
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 Measurements Intervals [place] Rate: 64 P: -43 [place]: 157 QRS: -47 QRSD: 109 T: -14 QT: 431 QTc: 448 Interpretive Statements SINUS RHYTHM MARKED LEFT AXIS DEVIATION [QRS AXIS < -30] MODERATE VOLTAGE CRITERIA FOR LVH, CONSIDER NORMAL VARIANT [MEETS CRITERIA IN ONE OF: R(aVL), S(V1), R(V5), R(V5/V6)+S(V1)] POSSIBLE SEPTAL MYOCARDIAL INFARCTION [30 ms Q WAVE IN V1/V2], PROBABLY OLD Compared to ECG 01/15/2021 14:05:31 Sinus bradycardia no longer present Incomplete right bundle-branch block no longer present Myocardial infarct finding still present Electronically Signed On 01-16-2021 9:27:21 CDT by Maddy Meade M.D. [id number]
--- NOTE | 2021-01-15 18:39 | PM.HP ---
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 Patient is stating that her symptoms started on Thursday with chest discomfort. She describing that event as pressure-like sensation substernally, her neighbor who is a nurse gave her aspirin and 2 dose of sublingual nitroglycerin 5 minutes apart which eased up her pain. That pain started at rest. On Thursday she started experiencing extremely weak and lethargic and describing her legs giving up on her. For the same reason she has stopped her walk/jog as well. Today she started feeling weak again and checked her blood pressure which was 96/57 and heart rate 104 earlier than that her blood pressure was high 198/101, despite feeling weak she managed to finish her shower, had an appointment at Dr. Álvarez's clinic when she started experiencing symptoms. She started experiencing chest pain which she is describing as stinging sensation substernally which was radiating towards her right subcostal margin and radiating towards her neck and ears. Her chest pain persisted for about 45 minutes to 1 hour which was associated with weakness numbness and tingling of upper and lower extremities. She denied nausea, vomiting. Diagnostics in the ER revealed normal hemodynamics, troponin without significant delta, EKG without ischemic or infarctive changes, Dr. Álvarez recommended overnight monitoring At the time my evaluation patient was describing headache and feeling dizzy with change of head position and ringing sensation, she is also struggling to clear her throat however denies recent fever or sinus infection. In the ER she received aspirin loading dose nitroglycerin and ceftriaxone Review of Systems Const: Denies: fever(s) Eyes: Denies: change in vision ENMT: Denies: throat pain Card: Reports: chest pain and dyspnea on exertion Resp: Reports: dyspnea GI: Denies: abdominal pain : Denies: flank pain Musc: Denies: neck pain Skin/Breast: Denies: rash Neuro: Reports: headache(s), lack of coordination, dizziness and vertigo Psych: Reports: anxiety Endo: Denies: polyuria Jose Manuel/Lymph: Denies: easy bruising All/Imm: Denies: urticaria Medications/Allergies Home Medications Medication Instructions Recorded Confirmed Last Taken Type Probiotic 3,000 mmu cells PO BID@08,06/13/20 01/15/21 Unknown History trazodone 50 mg PO DAILY@20 06/13/20 01/15/21 01/14/21 History isosorbide mononitrate 60 mg 60 mg PO DAILY #90 tab 07/30/20 01/15/21 01/14/21 Rx tablet,extended release 24 hr nifedipine 30 mg tablet,extended 30 mg PO DAILY #90 tab 07/31/20 01/15/21 01/14/21 Rx release nitroglycerin 0.4 mg sublingual See Rx Instructions .ROUTE 01/14/21 01/15/21 01/13/21 Rx tablet .COMPLEX #50 tab atorvastatin 40 mg PO DAILY 01/15/21 01/15/21 01/14/21 History losartan 100 mg PO DAILY 01/15/21 01/15/21 01/14/21 History Allergies Allergy/AdvReac Type Severity Reaction Status Date / Time MARIBEL Inhibitors Allergy cough Verified 01/15/21 08:35 donepezil Allergy Unknown Verified 01/15/21 08:35 meloxicam Allergy Rash Verified 01/15/21 08:35 propoxyphene [From Darvon] Allergy Unknown Verified 01/15/21 08:35 Darvocet Allergy Unknown Uncoded 01/15/21 08:35 PFSH Acute PFSH: Medical History Ambulates with cane ASHD (arteriosclerotic heart disease) Atherosclerotic heart disease of [place] coronary artery with other forms of angina pectoris Chronic back pain Chronic shortness of breath Colon cancer Constipation Cystocele with prolapse Diarrhea GERD (gastroesophageal reflux disease) History of TIA (transient ischemic attack) Hypertension Mixed hyperlipidemia NSTEMI (non-ST elevated myocardial infarction) Suspected 2019-nCoV infection Surgical History H/O left hemicolectomy 2006 H/O vaginal surgery rectocele and cystocele repair in 1999 [place], [place] History of hysterectomy with BSO Family History Sister Breast cancer, Onset Age: 50 Hypertension Father Stroke Heart disease Hypertension Mother Stroke Heart disease Diabetes Hypertension Denies family history of Bleeding disorder Social History Smoking and tobacco status: former smoker Quit status (tobacco): has quit using tobacco Former quit date comment: 34 years ago Second hand smoke exposure: No Alcohol intake: never Lives independently: Yes Household members: none Marital status: / Current occupational status: retired History of recent travel: No Vitals/I&O/Wt Last Vital Signs Temp 98.2 F 01/15/21 12:00 Pulse 79 01/15/21 18:00 Resp 12 01/15/21 18:00 BP 113/72 01/15/21 18:00 Pulse Ox 96 01/15/21 18:00 01/15/21 01/15/21 01/15/21 06:59 14:59 22:59 Intake Total 100 / 100 Balance 100 / 100 Weight last 48 hrs Weight 56.699 kg Physical Exam Narrative: EXAM NARRATIVE: elderly female who was laying comfortably in her bed however seemed anxious during my evaluation Saturating well on room air Complaining of headache especially when she moves her head in the bed S1, S2 no active signs of heart failure no active murmur appreciated Abdomen soft nontender Lower extremity no edema gangrene ulcer Appropriate mood and affect EOMI, PERRLA no neurological deficit No joint swelling or skin cellulitis changes No acute respiratory distress Data : 01/15/21 12:10 01/15/21 12:35 A&P Assessment and plan (1) Fatigue: Status: Acute (2) SOB (shortness of breath): Status: Acute (3) Atypical chest pain: Status: Acute Additional A&P Information Atypical chest pain Her chest pain is reproducible which gets worse on deep breathing no recent sinus infection or fever EKG unremarkable troponin without significant delta With history of mild coronary disease, will admit and observe her troponin overnight, Her chest pain persist more than 30 minutes however responded to nitroglycerin, she might need adjustment in her antianginal Metoprolol was not added to her ACS because of bradycardia in the past Continue aspirin, atorvastatin and losartan Will status post Dr. Álvarez in the morning, request limited echo Rule out PE requested D-dimer Headache with dizziness She is describing her dizziness as lightheadedness which gets worse on changing head position We will start meclizine and get physical therapy evaluation in the morning Cardiac diet DVT prophylaxis Lovenox Full code We will give her a GI cocktail for history of gastroenteritis Attestations Medical Necessity Statement*: Anticipating discharge within 48 hours overnight monitoring needed because of history of mild coronary atherosclerosis Time Spent in Patient Care: 30mins Coding Level of Care Code Acute Rehabilitation Psychologist for [place] Fwd Diagnoses Fatigue R53.83 SOB (shortness of breath) R06.02 Atypical chest pain R07.89
[2021-01-15 19:36] LABS: Troponin 5 6HR 8.04 ng/L (0-10)
[2021-01-15 19:42] LABS: Troponin 5 6HR Delta -0.96 ng/L (0-12)
--- NOTE | 2021-01-15 19:56 | ED_ITS ---
HPI - Chest Pain General: Chief Complaint: Chest Pain Stated Complaint: CHEST PAIN/ SOB/ WEAKNESS Time Seen by Provider: 01/15/21 11:58 History of Present Illness: HPI narrative: Patient is an 85-year-old female with past medical history of coronary artery disease was sent to the ER from Dr. Álvarez's office after having midsternal and left-sided chest pain. She had a angiography cardiac catheterization on June 18, 2020 which showed mild to moderate disease and Takotsubo syndrome. She also complains of shortness of breath associated with the pain. She has had multiple episodes on and off for the past few days and they are becoming more concerning for her. She takes nitroglycerin at home with relief of her pain MD complaint: chest heaviness Pertinent past history: coronary artery disease Timing of current episode: episodic Prior episodes: Yes Onset: during rest Pain location: substernal and left chest Pain radiation: none Severity: moderate Quality: heaviness Relieving factors: nitroglycerin Associated symptoms: Reports no associated symptoms and dyspnea; Deny abdominal pain or palpitations Review of Systems General: Reports: 10 or more systems reviewed and unremarkable except in HPI and below Const: Denies: fatigue Eyes: Denies: change in vision, blurry vision or eye redness ENMT: Denies: throat pain, swelling of lips/tongue, ear or mastoid pain or nasal congestion Card: Reports: chest pain; Denies: palpitations, irregular heart rhythm, edema, dyspnea on exertion or orthopnea Resp: Reports: dyspnea; Denies: productive cough or non-productive cough GI: Denies: abdominal pain, diarrhea or GI cramping : Denies: flank pain, difficulty voiding, urinary frequency or urinary urgency Musc: Denies: neck pain, back pain, extremity pain, joint pain, joint redness, limited range of motion or muscle weakness Skin/Breast: Denies: rash, pruritus, erythema, skin pain or skin tenderness Neuro: Denies: headache(s), numbness in extremities, weakness in extremities, sensory changes, difficulty walking, dizziness, confusion or Slurred speech present Psych: Denies: anxiety or depression Endo: Denies: polyuria All/Imm: Denies: urticaria, throat swelling or tongue swelling [facility] PFSH: Medical History (Updated 01/15/21 @ 20:02 by Deion Camacho MD) Ambulates with cane ASHD (arteriosclerotic heart disease) Atherosclerotic heart disease of [place] coronary artery with other forms of angina pectoris Chronic back pain Chronic shortness of breath Colon cancer Constipation Cystocele with prolapse Diarrhea GERD (gastroesophageal reflux disease) History of TIA (transient ischemic attack) Hypertension Mixed hyperlipidemia NSTEMI (non-ST elevated myocardial infarction) Suspected 2019-nCoV infection Surgical History H/O left hemicolectomy 2006 H/O vaginal surgery rectocele and cystocele repair in 1999 [place], [place] History of hysterectomy with BSO Family History Sister Breast cancer, Onset Age: 50 Hypertension Father Stroke Heart disease Hypertension Mother Stroke Heart disease Diabetes Hypertension Denies family history of Bleeding disorder Social History Smoking and tobacco status: former smoker Quit status (tobacco): has quit using tobacco Former quit date comment: 34 years ago Second hand smoke exposure: No Alcohol intake: never Lives independently: Yes Household members: none Marital status: / Current occupational status: retired History of recent travel: No Physical Exam Const: COMMON NORMALS: no acute distress, average body habitus, patient o riented x3, no limitations, healthy appearing, alert and well nourished GENERAL APPEARANCE: cooperative, comfortable, well kempt, well developed and anxious ORIENTATION/CONSCIOUSNESS: Yes awake, Yes oriented to person, Yes oriented to place and Yes oriented to time HENMT: COMMON NORMALS: normocephalic, external ears normal and Normal external nose present HEAD & SCALP: normal to inspection and normocephalic NOSE: Normal external nose present EXTERNAL EAR: Yes external ears normal MOUTH: Normal oral and palatal mucosa present THROAT: posterior oropharynx normal Eye: COMMON NORMALS: Equal, round and reactive pupils present and EOMs intact bilaterally GENERAL EYE: appearance normal, both eyes and all related structures PUPIL: Yes Equal, round and reactive pupils present Neck/C-Spine: COMMON NORMALS: full ROM, no lymphadenopathy, no meningeal signs and no JVD GENERAL: Yes normal visual inspection Lymph: LYMPHATIC: no lymphadenopathy noted Chest: COMMONS NORMALS: normal inspection of the chest and normal palpation of entire chest wall Resp: COMMON NORMALS: normal respiratory effort, No retractions, No use of accessory muscles, clear to auscultation bilaterally and percussion normal EFFORT & INSPECTION: Yes able to speak in complete sentences AUSCULTATION: clear to auscultation bilaterally PERCUSSION: percussion normal Cardio: COMMON NORMALS: no JVD, regular rate, regular rhythm, S1 normal heart sound present, S2 normal heart sound present and Peripheral pulses 2+ throughout RATE: regular rate RHYTHM: regular rhythm HEART SOUNDS: S1 normal heart sound present and S2 normal heart sound present PERIPHERAL PULSES: Peripheral pulses 2+ throughout GI: COMMON NORMALS: Normal to inspection, nondistended, normoactive bowel sounds present, Soft to palpation, non-tender and no masses INSPECTION: Yes normal to inspection PALPATION: Yes Soft to palpation : COMMON NORMALS: Yes no CVA tenderness BLADDER/KIDNEY EXAM: Yes no CVA tenderness Back/Pelvis: COMMON NORMALS: no CVA tenderness, thoracic and lumbar spine norm al to inspection, no thoracic nor lumbar tenderness and thoraco-lumbar ROM normal Extremity: COMMON NORMALS: normal to inspection, full ROM, capillary refill normal, no joint enlargement and no pedal edema GENERAL: Yes normal exam except as noted Neuro: COMMON NORMALS: patient oriented x3, CN's II-XII intact bilaterally, moves all extremities, no focal motor deficits, no sensory deficits noted and gait normal SENSORIUM/ORIENTATION: Yes alert, Yes oriented to person, Yes oriented to place and Yes oriented to time MENINGEAL SIGNS: Yes no meningeal signs Psych: COMMON NORMALS: mental status grossly normal, Normal thought process present, cooperative, normal affect and speech normal APPEARANCE: Yes well kempt ATTITUDE: Yes calm SPEECH: Yes normal speech THOUGHT PROCESS: Normal thought process present Skin: COMMON NORMALS: no rashes or lesions noted GENERAL SKIN EXAM: no rashes or lesions noted Course Vital Signs: Vital signs: Vital Signs Temperature 97.6 F 01/15/21 19:31 Pulse Rate 66 01/15/21 19:31 Respiratory Rate 16 01/15/21 19:31 Blood Pressure 181/73 01/15/21 19:31 Pulse Oximetry 98 01/15/21 19:31 MDM - Chest Pain MDM Narrative: Medical decision making narrative: The patient comes to the ER with chest heaviness and has evidence of coronary artery disease last June 18 with Takotsubo syndrome. Her troponin and EKGs were mostly normal here in the ER however I discussed with Dr. Álvarez her case and he recommended keeping her observation for her symptoms. Her pain was relieved by nitroglycerin here in the ED. Lab Data: Labs: Lab Results 01/15/21 01/15/21 01/15/21 Range/Units 12:10 12:10 12:10 WBC 5.4 (4.0-10.0) 10^3/ uL RBC 4.10 (4.1-5.3) 10^6/u L Hgb 12.9 (11.5-15.3) g/dL Hct 38.0 (37.0-47.0) % MCV 92.7 (81-99) fL MCH 31.5 (28.0-34.0) pg MCHC 33.9 (30.0-36.0) g/dL RDW 13.3 (12.1-15.1) % Plt Count 172 (130-400) 10^3/c mm MPV 9.4 (7.4-10.4) fL Neut % (Auto) 60.2 % Lymph % (Auto) 28.9 % [place] % (Auto) 8.8 % Eos % (Auto) 0.6 % Baso % (Auto) 1.1 % Neut # (Auto) 3.23 (1.8-7.7) 10^3/u L Lymph # (Auto) 1.6 (0.8-4.8) 10^3/u L [place] # (Auto) 0.5 (0.2-0.9) 10^3/u L Eos # (Auto) 0.0 (0.0-0.8) 10^3/u L Baso # (Auto) 0.1 (0.0-0.1) 10^3/u L Nucleated RBC % (a uto) 0 % Nucleated RBCs # 0.0 /100WBC PT Cancelled INR Cancelled D-Dimer Cancelled Sodium Cancelled Potassium Cancelled Chloride Cancelled Carbon Dioxide Cancelled Anion Gap Cancelled BUN Cancelled Creatinine Cancelled GFR Calculation Cancelled Glucose Cancelled Calculated Osmolal ity Cancelled Calcium Cancelled Total Bilirubin Cancelled AST Cancelled ALT Cancelled Alkaline Phosphata se Cancelled Troponin T Baselin e Troponin T 120 Min [place] (0-10) ng/L Delta Troponin T (0-10) ABS# NT-Pro-B Natriuret Pep Cancelled Total Protein Cancelled Albumin Cancelled Globulin Cancelled Urine Color (Yellow) Urine Appearance (CLEAR) Urine pH (5-7) Ur Specific Gravit y (1.005-1.030) Urine Protein (Negative) Urine Glucose (UA) (Normal) Urine Ketones (Negative) Urine Blood (Negative) Urine Nitrate (Negative) Urine Bilirubin (Negative) Urine Urobilinogen (Negative) mg/dL Ur Leukocyte Eva ase (Negative) Urine RBC (0-2) /hpf Urine WBC (0-5) /hpf Ur Squamous Epith Cells (0-5) /hpf Amorphous Sediment Urine Bacteria (NONE) /hpf Urine Mucus /hpf 01/15/21 01/15/21 01/15/21 Range/Units 12:10 12:35 12:35 WBC (4.0-10.0) 10^3/ uL RBC (4.1-5.3) 10^6/u L Hgb (11.5-15.3) g/dL Hct (37.0-47.0) % MCV (81-99) fL MCH (28.0-34.0) pg MCHC (30.0-36.0) g/dL RDW (12.1-15.1) % Plt Count (130-400) 10^3/c mm MPV (7.4-10.4) fL Neut % (Auto) % Lymph % (Auto) % [place] % (Auto) % Eos % (Auto) % Baso % (Auto) % Neut # (Auto) (1.8-7.7) 10^3/u L Lymph # (Auto) (0.8-4.8) 10^3/u L [place] # (Auto) (0.2-0.9) 10^3/u L Eos # (Auto) (0.0-0.8) 10^3/u L Baso # (Auto) (0.0-0.1) 10^3/u L Nucleated RBC % (a uto) % Nucleated RBCs # /100WBC PT 13.80 INR 1.03 D-Dimer <= 0.27 Sodium 137 Potassium 4.3 Chloride 102 Carbon Dioxide 23 Anion Gap 16.3 BUN 19 Creatinine 0.7 GFR Calculation Not Reportable Glucose 94 Calculated Osmolal ity 286 Calcium 9.3 Total Bilirubin 0.5 AST 22 ALT 17 Alkaline Phosphata se 58 Troponin T Baselin e Cancelled Troponin T 120 Min [place] (0-10) ng/L Delta Troponin T (0-10) ABS# NT-Pro-B Natriuret Pep 490 H Total Protein 6.7 Albumin 4.2 Globulin 2.5 Urine Color (Yellow) Urine Appearance (CLEAR) Urine pH (5-7) Ur Specific Gravit y (1.005-1.030) Urine Protein (Negative) Urine Glucose (UA) (Normal) Urine Ketones (Negative) Urine Blood (Negative) Urine Nitrate (Negative) Urine Bilirubin (Negative) Urine Urobilinogen (Negative) mg/dL Ur Leukocyte Eva ase (Negative) Urine RBC (0-2) /hpf Urine WBC (0-5) /hpf Ur Squamous Epith Cells (0-5) /hpf Amorphous Sediment Urine Bacteria (NONE) /hpf Urine Mucus /hpf 01/15/21 01/15/21 01/15/21 Range/Units 12:35 13:04 14:26 WBC (4.0-10.0) 10^3/ uL RBC (4.1-5.3) 10^6/u L Hgb (11.5-15.3) g/dL Hct (37.0-47.0) % MCV (81-99) fL MCH (28.0-34.0) pg MCHC (30.0-36.0) g/dL RDW (12.1-15.1) % Plt Count (130-400) 10^3/c mm MPV (7.4-10.4) fL Neut % (Auto) % Lymph % (Auto) % [place] % (Auto) % Eos % (Auto) % Baso % (Auto) % Neut # (Auto) (1.8-7.7) 10^3/u L Lymph # (Auto) (0.8-4.8) 10^3/u L [place] # (Auto) (0.2-0.9) 10^3/u L Eos # (Auto) (0.0-0.8) 10^3/u L Baso # (Auto) (0.0-0.1) 10^3/u L Nucleated RBC % (a uto) % Nucleated RBCs # /100WBC PT INR D-Dimer Sodium Potassium Chloride Carbon Dioxide Anion Gap BUN Creatinine GFR Calculation Glucose Calculated Osmolal ity Calcium Total Bilirubin AST ALT Alkaline Phosphata se Troponin T Baselin e 9 Troponin T [address] [place] 9.75 (0-10) ng/L Delta Troponin T 0.75 (0-10) ABS# NT-Pro-B Natriuret Pep Total Protein Albumin Globulin Urine Color Yellow (Yellow) Urine Appearance Sl hazy (CLEAR) Urine pH 7 (5-7) Ur Specific Gravit y 1.005 (1.005-1.030) Urine Protein Trace (Negative) Urine Glucose (UA) Norm (Normal) Urine Ketones Negative (Negative) Urine Blood 2+ H (Negative) Urine Nitrate Negative (Negative) Urine Bilirubin 1+ H (Negative) Urine Urobilinogen 1 H (Negative) mg/dL Ur Leukocyte Eva ase 2+ H (Negative) Urine RBC 15-25 H (0-2) /hpf Urine WBC 80-100 H (0-5) /hpf Ur Squamous Epith Cells 25-40 H (0-5) /hpf Amorphous Sediment Not Reportable Urine Bacteria 2+ H (NONE) /hpf Urine Mucus 1+ /hpf Discharge Plan Discharge Patient Disposition: Placed in Observation Admit Provider: Shey Rodriguez Clinical Impression: Chest pain Coding Level of Care Code ED Children[employer] Book Author for Stephanie Vidal
[2021-01-15] MEDS: acetaminophen 325 mg Tablet PO (20:25)
[2021-01-15] MEDS: trazodone 50 mg Tablet PO (20:25)
[2021-01-15] MEDS: lidocaine 2% viscous 15 ML, aluminum-mag hydrox-simethicon 30 ML, sucralfate oral liq 1 GM PO (20:26)
[2021-01-15] MEDS: enoxaparin 40 mg/0.4 mL Syringe SUBCUT (20:26)
[2021-01-16] VITALS (8 sets, daily range): BP systolic 124–170; BP diastolic 65–80; PULSE 58–98; RESP 16–18; TEMP 36.4–37.1; O2SAT 92–98
--- NOTE | 2021-01-16 05:00 | USCV_ITS ---
Cris Beavers Age: 85 Gender: F : 1935 Exam Date: 01/16/2021 06:21 Ordering Phys: Shey Rodriguez MD Technologist: Exam Location[place] [facility] [place]ication: CHEST PAIN BP: 134 / 74 HR: 61 Rhythm: Sinus Technical Quality: Fair MEASUREMENTS (Male / Female) Normal Values 2D ECHO LV Diastolic Diameter PLAX 4.5 cm 4.2 - 5.9 / 3.9 - 5.3 cm LV Systolic Diameter PLAX 2.9 cm IVS Diastolic Thickness 0.9 cm 0.6 - 1.0 / 0.6 - 0.9 cm IVS Systolic Thickness 1.5 cm LVPW Diastolic Thickness 1.1 cm 0.6 - 1.0 / 0.6 - 0.9 cm LVPW Systolic Thickness 1.2 cm LVOT Diameter 2.3 cm LV Ejection Fraction 2D Teich 57.0 % LV Ejection Fraction MOD 2C 54.6 % LV Ejection Fraction 2C AL 55.6 % LA Diameter 2.9 cm LA Width 3.5 cm LA Height 4.7 cm RA Width 3.7 cm RA Height 4.8 cm Aorta at Sinotubular Diameter 2.5 cm FINDINGS Left Ventricle Normal left ventricular cavity size. Normal left ventricular systolic function. No regional wall motion abnormalities. Left ventricular ejection fraction is estimated at 55 %. Right Ventricle The right ventricle is normal in size and function. Right Atrium The right atrium is normal in size. Left Atrium The left atrium is normal in size. Mitral Valve Structurally normal mitral valve without significant stenosis or prolapse. There is no mitral regurgitation. Aortic Valve Moderate aortic valve calcification. There appeared to be mild aortic valve with restriction leaflet restriction without significant stenosis. Regurgitation cannot be assessed due to lack of Doppler type Tricuspid Valve Structurally normal tricuspid valve without significant stenosis. Pulmonic Valve Structurally normal pulmonic valve without significant stenosis. Pericardium Normal pericardium without effusion. Aorta Normal ascending aorta dimension. CONCLUSIONS Please note that this is suboptimal quality images without Doppler data therefore cannot comment on hemodynamics or valvular regurgitation or stenosis 1-Normal left ventricular cavity size. Normal left ventricular systolic function. No regional wall motion abnormalities. Left ventricular ejection fraction is estimated at 55 %. 2-There is no pericardial effusion. 3-No significant valve abnormalities. 4-Due to suboptimal imaging quality and lack of Doppler data cannot compare it with prior study. If clinically indicated please order full study with Doppler data Shey Spencer MD (Electronically Signed) Final Date: 16 January 2021 19:04 S
[2021-01-16] MEDS: atorvastatin 40 mg Tablet PO (09:36)
[2021-01-16] MEDS: NIFEdipine ER (24 hr) 30 mg Tablet PO (09:36)
[2021-01-16] MEDS: losartan 50 mg Tablet 100 MG PO (09:36)
[2021-01-16] MEDS: isosorbide mononitrate ER 60 mg Tablet PO (09:36)
[2021-01-16] MEDS: aspirin 81 mg EC Tablet PO (09:36)
--- NOTE | 2021-01-16 10:10 | PC.CHAP ---
Pastoral Care Encounter/Spiritual Assessment Type of Contact [] Declined substation wireman visit [] Patient/Family/Request visit [] Outpatient visit [] Follow-up visit [] Physician referral [] Code/Alert [x] Routine visit [] Staff referral [] Actively dying [] Patient sleeping [] Family support [] [] Out of room [] Palliative care [] [] Receiving care in room [] Pre-surgical visit [] Trauma [] Long length of stay [] ICU visit [] Other: Relational/Emotional Strength [x] Patient feels connected with others/family/visitors/staff [] Distress [] Loneliness/isolation [] Abandonment Spirituality of Patient [x] Person of Jeana [x] Attends Alevism of their Jeana [x] Believes in Prayer [] Reads Bible or Pentecostalism materials [] There are Spiritual issues to be addressed [employer] Interventions [x] Prayer [] Active listening [] Non-anxious presence [] Spiritual/emotional support [] Crisis/trauma care [] Spiritual counseling [] Bereavement support [] Provided bereavement packet [] Provided Bible/devotional materials [] Provided toy/stuffed animal, coloring book to patient or family member [] Provided Communion [] Anointing/[place] [] Salvation [x] Completed spiritual assessment [] Other: Impact on Illness or Injury [] Angry [x] Fearful [] Anxious [] Often cries [] Exhaustion [] Unable to work [] Unable to attend oriental orthodox [] Unable to walk/stand [] Unable to read [] Unable to drive [] Unable to eat/drink [] Unable to sleep [] Unable to be with family [] Patient intubated [] Other: Summary Time spent with patient 10 min
--- NOTE | 2021-01-16 14:37 | CT_ITS ---
WS: [id number] CT CERVICAL SPINE TECHNIQUE: Noncontrast CT of the cervical spine with coronal and sagittal reformatted images. CLINICAL INFORMATION: Numbness and tingling of upper and lower extremity COMPARISON: None. DLP: 466.[address] scans at [facility] use at least one of these dose optimization techniques: automat ed exposure control; mA and/or kV adjustment per patient size (includes targeted exams where dose is matched to clinical indication); or iterative reconstruction. FINDINGS: Straightening of the normal cervical lordosis. Moderate spondylitic changes. Disc space narrowing wor se at C4-C6. Slight retrolisthesis C6 on C7. Mild central canal stenosis C4-C6. C2-C3: Moderate left facet arthropathy. Spinal canal and foramen are patent. C3-C4: Trace anterolisthesis. Moderate left facet arthropathy. Moderate left bony foraminal narrowing . Spinal canal is patent. C4-C5: Disc osteophytic ridging with a tiny central protrusion. Mild central canal stenosis. Mild kaitlin ateral bony foraminal narrowing with moderate facet arthropathy. C5-C6: Disc osteophyte complex with endplate ridging. Mild central canal stenosis. Moderate bilateral bony foraminal narrowing with moderate facet arthropathy. C6-C7: Slight retrolisthesis. Disc osteophyte complex with mild to moderate central canal stenosis. M ild to moderate right greater than left bony foraminal narrowing. C7-T1: No significant disc bulging. Mild to moderate bilateral bony foraminal narrowing. Fibrosis right lung apex. CT/CT cervical spin wo con* [id number] IMPRESSION: 1. Straightening of the normal cervical lordosis. Moderate spondylitic changes . 2. Mild central canal stenosis C4-C5 and C5-C6. Mild to moderate central canal stenosis C6-7. 3. Multilevel mild to moderate bony foraminal narrowing worse at left C3-C4, b ilateral C5-6 worse on the right, right C6-7, and bilateral C7-T1.
--- NOTE | 2021-01-16 14:37 | CT_ITS ---
WS: [id number] CT THORACIC SPINE TECHNIQUE: Noncontrast CT of the thoracic spine with coronal and sagittal reformatted images. CLINICAL INFORMATION: Numbness of lower extremities COMPARISON: MRI 2006 DLP: 792.[address] scans at [facility] use at least one of these dose optimization techniques: automat ed exposure control; mA and/or kV adjustment per patient size (includes targeted exams where dose is matched to clinical indication); or iterative reconstruction. FINDINGS: Mild thoracic curve convex right. Mild thoracic kyphosis. No acute appearing compression fractures. N o high-grade central canal stenosis. Moderate facet arthropathy in the lower thoracic spine. Disc spa ce heights and vertebral body heights are well preserved. Mild disc desiccation with vacuum disc phen omenon T11-T12. Aortic calcification. Small esophageal hiatal hernia. Partially visualized hepatic cyst. Adrenal glan ds are normal. Aortic calcification. Fibrosis right upper lobe. Calcified granulomas. CT/CT thoracic spin wo con* [id number] IMPRESSION: 1. Mild thoracic curve. Mild thoracic kyphosis. 2. No acute compression. No high-grade central canal stenosis. 3. Mild disc space narrowing T11-T12 with vacuum disc phenomenon. Disc space h eights and vertebral body heights are otherwise well preserved. 4. Moderate facet arthropathy lower thoracic spine.
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
[2021-01-16 15:26] LABS: Vitamin B12 562 pg/mL (232-1245)
[2021-01-16] MEDS: lidocaine 2% viscous 15 ML, aluminum-mag hydrox-simethicon 30 ML, sucralfate oral liq 1 GM PO (16:28)
--- NOTE | 2021-01-16 16:33 | PM.DCS ---
Discharge Providers Date of Admission: 01/15/21 17:15 Date of Discharge: January 16, 2021 Attending Provider at Admission: Shey Rodriguez MD Attending Provider at Discharge: Shey Rodriguez MD Primary Care Provider: Napoleon Hall MD Diagnoses at Discharge Discharge Diagnosis (1) Chest pain: Status: Acute (2) Blurring of vision: Status: Acute (3) Ataxia: Status: Acute Reason for Visit Reason for Visit: CHEST PAIN/ SOB/ WEAKNESS Hospital Course Hospital Course Cris Beavers is a 85 year old female with history of mild coronary disease of LAD and RCA suffered from type II NV in May last year, no beta-juan were prescribed secondary to bradycardia, Takotsubo syndrome was being considered for cardiomyopathy with EF of 50% presented today with chief complaint of chest pain. Patient is stating that her symptoms started on Thursday with chest discomfort. She describing that event as pressure-like sensation substernally, her neighbor who is a nurse gave her aspirin and 2 dose of sublingual nitroglycerin 5 minutes apart which eased up her pain. That pain started at rest. On Thursday she started experiencing extremely weak and lethargic and describing her legs giving up on her. For the same reason she has stopped her walk/jog as well. Today she started feeling weak again and checked her blood pressure which was 96/57 and heart rate 104 earlier than that her blood pressure was high 198/101, despite feeling weak she managed to finish her shower, had an appointment at Dr. Álvarez's clinic when she started experiencing symptoms. She started experiencing chest pain which she is describing as stinging sensation substernally which was radiating towards her right subcostal margin and radiating towards her neck and ears. Her chest pain persisted for about 45 minutes to 1 hour which was associated with weakness numbness and tingling of upper and lower extremities. She denied nausea, vomiting. Diagnostics in the ER revealed normal hemodynamics, troponin without significant delta, EKG without ischemic or infarctive changes, Dr. Álvarez recommended overnight monitoring At the time my evaluation patient was describing headache and feeling dizzy with change of head position and ringing sensation, she is also struggling to clear her throat however denies recent fever or sinus infection. In the ER she received aspirin loading dose nitroglycerin and ceftriaxone Hospital course Patient's symptoms of chest pain resolved, EKG and troponin without any significant changes. I requested B12 and CT scan of cervical and thoracic region because of her complaint of numbness and tingling of extremities, she does have extensive degenerative disease arthritis with radiculopathy. PT saw her today and recommended detention versus home health services, patient opted for home health. She will be discharged with meclizine, a walker, aspirin maintenance dose, Tessalon Perles. Throughout her hospitalization she was very concerned about her nonproductive cough, I requested Covid antigen. She will be discharged home with home health services, she will get a prescription for a walker, Follow-up with Dr. Álvarez Physical Exam Narrative: EXAM NARRATIVE: elderly female who was laying comfortably in her bed Saturating well on room air Complaining of headache especially when she moves her head in the bed S1, S2 no active signs of heart failure no active murmur appreciated Abdomen soft nontender Lower extremity no edema gangrene ulcer Appropriate mood and affect EOMI, PERRLA no neurological deficit No joint swelling or skin cellulitis changes No acute respiratory distres Discharge Data Data Completed and Pending: Completed Studies During Hospitalization Category Date Time Status CT cervical spin wo con* [id number] Rout ine Cat Scan 01/16/21 14:[address] thoracic spin wo con* [id number] Rout ine Cat Scan 01/16/21 14:37 Completed XR chest 1V estela ble [id number] Stat Exams 01/15/21 11:58 Completed Pending at discharge Category Date Time Status COVID [SARS Covid -2 Antigen] Stat Lab 01/16/21 15:24 Received CV. echo limited [id number] Routine Ultrasound 01/16/21 05:00 Taken Labs from last 24 hours 01/16/21 01/15/21 01/15/21 15:24 18:27 18:27 Troponin T Hi Sens 6Hr 8.04 Troponin T Hi Sens 6Hr Delta -0.96 L Vitamin B12 562 SARS-CoV-2 Ag (Rap id) Pending Vitals: Last Vital Signs Temp 98.3 F 01/16/21 11:20 Pulse 70 01/16/21 08:58 Resp 17 01/16/21 11:20 BP 124/80 01/16/21 11:20 Pulse Ox 95 01/16/21 11:20 Discharge Plan Discharge Patient Disposition: Home Condition: Stable Prescriptions: New aspirin 81 mg Tablet,Delayed Release (Dr/Ec) 81 mg PO DAILY 30 Days Qty: 30 RF: 2 benzonatate 100 mg Capsule 100 mg PO TID PRN (Reason: Cough) Qty: 10 RF: 0 meclizine 25 mg Tablet 25 mg PO TID PRN (Reason: Dizziness) 10 Days Qty: 30 RF: 0 Continued nifedipine 30 mg tablet extended release 30 mg PO DAILY Qty: 90 RF: 3 isosorbide mononitrate 60 mg tablet extended release 24 hr 60 mg PO DAILY Qty: 90 RF: 2 nitroglycerin 0.4 mg tablet, sublingual See Rx Instructions .ROUTE .COMPLEX Qty: 50 RF: 5 trazodone 50 mg Tablet 50 mg PO DAILY@20 RF: 0 Probiotic 3 billion cell capsule 3,000 mmu cells PO BID@08,20 RF: 0 atorvastatin 40 mg tablet 40 mg PO DAILY RF: 0 losartan 100 mg tablet 100 mg PO DAILY RF: 0 Discharge Orders: Discharge Order (Routine); Ordered 01/16/21 Ordered By: Shey Rodriguez Other Ambulatory Orders: DME: Walker (Order) Location: None Selected Ordered By: Shey Rodriguez Referrals: Wilfrido Álvarez MD [Physician] - 7-10 days Discharge Diet: Cardiac Discharge Activity: Increase activity as tolerated and Use walker/crutches as instructed Patient Instructions: Opioid Safety Discharge Attestations Time Spent in Discharge Care*: less than 30 min Quality Metrics Clinical Quality Measures During this hospital stay, did patient experience: None Coding Level of Care Code Acute Chg FW DC note Diagnoses Chest pain R07.9 Blurring of vision H53.8 Ataxia R27.0
[2021-01-16 17:01] LABS: SARS Covid-2 Antigen Negative (Negative)
--- NOTE | 2021-01-16 17:55 | PC.NURSE ---
Patient's medications ordered upon d/c were accidentally sent to her mail-in pharmacy, [facility]. I spoke with the family and they will need these sent to a local pharmacy to be able to orange picking supervisor on 01/17. I attempted to call these medications in to [facility], however they were closing at 1800. I spoke with the son again and he agreed for me to call in the medications on 01/17 to [facility] for orange picking supervisor.
== END 2021-01-16 18:49 | disposition home or self-care (01) ==
LOC: ER 16:34 → MEDSURG 18:17
PROVIDERS: Admitting Provider Internal Medicine; Emergency Provider Family Medicine; PCP Internal Medicine; Visit Provider Internal Medicine
DX: R07.9 Chest pain, unspecified (principal); H53.8 Other visual disturbances; R27.0 Ataxia, unspecified; I25.10 Atherosclerotic heart disease of native coronary artery without angina pectoris; I25.2 Old myocardial infarction; Z85.038 Personal history of other malignant neoplasm of large intestine; E78.2 Mixed hyperlipidemia; Z87.891 Personal history of nicotine dependence
CPT/HCPCS: 36415; 71045; 72125; 72128; 80053; 81001; 82607; 83880; 84484; 85025; 85378; 85610; 87426; 93005; 93308; 96365; 96372; 97110; 97116; 97162; 99285; G0378; J0696; J1650

== ENCOUNTER → 2021-01-23 08:57 | Outpatient (BNVA) | payer MEDICARE, OTHER, SELFPAY | PROVIDERS: PCP Internal Medicine; Visit Provider Internal Medicine | DX: R19.7 Diarrhea, unspecified (principal) | CPT/HCPCS: 87493 ==

== ENCOUNTER → 2021-09-23 16:29 | Outpatient (BNVA) | payer MEDICARE, OTHER, SELFPAY | PROVIDERS: PCP Internal Medicine; Visit Provider Nurse Practitioner Family | DX: M79.604 Pain in right leg (principal) | CPT/HCPCS: 73590 ==

== ENCOUNTER 2021-10-16 11:40 | Outpatient (CLI) | payer MEDICARE, OTHER, SELFPAY ==
--- NOTE | 2021-10-16 12:45 | USCV_ITS ---
Cris Beavers Age: 85 Gender: F : 1935 Exam Date: 10/16/2021 12:44 Ordering Phys: Devika Gilliam PANTOGRAPH OPERATOR-Priscila Technologist: Exam Location: [facility] [place] Indication: Rt leg pain and swelling PROCEDURES: Venous duplex imaging was performed in only the right lower extremity. The following venous structures were evaluated: common femoral vein, profunda vein, proximal portion of the greater saphenous vein, superficial femoral vein, and the popliteal vein. In addition, the posterior tibial and peroneal trunk were evaluated. FINDINGS: Normal 2-D Doppler and augmentation and compressibility throughout the lower extremity venous structures. Additional imaging through the proximal calf veins also reveals no thrombus. Limited evaluation of the greater saphenous vein is patent with no thrombus. CONCLUSIONS No DVT right lower extremity. Dr. Sheron Ulloa DO (Electronically Signed) Final Date: 16 October 2021 15:18 S
== END 2021-10-16 11:41 | disposition home or self-care (01) ==
LOC: RAD 11:48
PROVIDERS: PCP Internal Medicine; Visit Provider Nurse Practitioner Family
DX: M79.604 Pain in right leg (principal)
CPT/HCPCS: 93971

== ENCOUNTER → 2021-10-17 11:05 | Outpatient (BNVA) | payer MEDICARE, OTHER, SELFPAY | PROVIDERS: PCP Internal Medicine; Visit Provider Nurse Practitioner | DX: N39.0 Urinary tract infection, site not specified (principal); M54.50 Low back pain, unspecified; M79.604 Pain in right leg | CPT/HCPCS: 81000 ==

== ENCOUNTER 2021-10-25 06:00 | Outpatient (RCR) | payer MEDICARE, OTHER, SELFPAY | END 2021-10-26 23:59 | disposition home or self-care (01) | LOC: APT 06:00 | PROVIDERS: PCP Internal Medicine; Referring Provider Nurse Practitioner; Visit Provider Nurse Practitioner | DX: M54.50 Low back pain, unspecified (principal); M79.604 Pain in right leg | CPT/HCPCS: 97163 ==

== ENCOUNTER 2021-10-27 06:00 | Outpatient (RCR) | payer MEDICARE, OTHER, SELFPAY | END 2021-11-26 23:59 | disposition home or self-care (01) | LOC: APT 06:00 | PROVIDERS: PCP Internal Medicine; Referring Provider Nurse Practitioner; Visit Provider Nurse Practitioner | DX: M54.50 Low back pain, unspecified (principal); M79.604 Pain in right leg | CPT/HCPCS: 97110 ==

== ENCOUNTER 2021-11-11 12:47 | Emergency (ER) | payer MEDICARE, OTHER, SELFPAY ==
--- NOTE | 2021-11-11 13:00 | PC.NURSE ---
PT placed on continuous NIBP, SpO2, and CM
[2021-11-11 13:11] VITALS: BP 167/73; PULSE 62; RESP 27; TEMP 36.6; O2SAT 100; BMI 22.1
--- NOTE | 2021-11-11 13:13 | XRR_ITS ---
PROCEDURE INFORMATION: Exam: XR Chest Exam date and time: 11/11/2021 1:21 PM Age: 86 years old Clinical indication: Pain; Shortness of breath; Angina pectoris; Additional info: Chest pain TECHNIQUE: Imaging protocol: XR of the chest. Views: 1 view. COMPARISON: CR XR chest 1V portable [id number] 01/15/2021 12:13 PM FINDINGS: Lungs: Unremarkable. No consolidation. Pleural spaces: Unremarkable. No pleural effusion. No pneumothorax. Heart/Mediastinum: Unremarkable. No cardiomegaly. Bones/joints: Unremarkable. XR/XR chest 1V portable [id number] IMPRESSION: No acute findings.
--- NOTE | 2021-11-11 13:13 | ECG_ITS ---
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 Measurements Intervals [place] Rate: 61 P: -84 LA: 162 QRS: -47 QRSD: 116 T: -35 QT: 460 QTc: 464 Interpretive Statements SINUS RHYTHM LEFT AXIS DEVIATION [QRS AXIS < -30] VOLTAGE CRITERIA FOR LVH POSSIBLE SEPTAL MYOCARDIAL INFARCTION , PROBABLY OLD Compared to ECG 01/15/2021 18:13:13 No significant changes Electronically Signed On 11-11-2021 17:36:15 CDT by Maddy Meade M.D. [email or web address] Technologiesencompass health lakesh[facility] rehabilitation hospitalGenecureadena health system.[employer]/store/Ov/[id number]
[2021-11-11 13:24] LABS: Basophils % 0.5 %; Eosinophils % 0.5 %; Hematocrit 36.5 % (37.0-47.0); Hemoglobin 12.5 g/dL (11.5-15.3); Lymphocytes # 2.1 10^3/uL (0.8-4.8); Lymphocytes % 37.1 %; Mean Corpuscular HGB Conc 34.2 g/dL (30.0-36.0); Mean Corpuscular Hemoglobin 31.4 pg (28.0-34.0); Mean Corpuscular Volume 91.7 fl (81-99); Monocytes # 0.5 10^3/uL (0.2-0.9); Monocytes % 8.8 %; Neutrophils # 3.01 10^3/uL (1.8-7.7); Neutrophils % 52.7 %; Nucleated Red Blood Cells % 0 %; Platelet Count 161 10^3/cmm (130-400); Red Blood Count 3.98 10^6/uL (4.1-5.3); Red Cell Distribution Width 13.1 % (12.1-15.1); White Blood Count 5.7 10^3/uL (4.0-10.0)
[2021-11-11 13:38] LABS: Alanine Aminotransferase 17 U/L (0-33); Albumin Level 4.3 g/dL (3.5-5.2); Alkaline Phosphatase 58 IU/L (35-105); Aspartate Amino Transferase 25 U/L (0-32); Blood Urea Nitrogen 14 mg/dL (8-23); Calcium 9.3 mg/dL (8.5-10.5); Carbon Dioxide 22 mmol/L (22-29); Chloride 91 mmol/L (98-107); Globulin 2.5 g/dL (1.3-4.6); Glucose 94 mg/dL (65-115); Osmolality Calculated 262 mOsm/kg (285-295); Sodium 126 mmol/L (136-145); Total Bilirubin 0.7 mg/dL (0.15-1.2); Total Protein 6.8 g/dL (6.6-8.7)
[2021-11-11 13:39] LABS: Anion Gap 17.7 (5-19); Potassium 4.7 mmol/L (3.5-5.1)
[2021-11-11 13:40] LABS: Troponin(5th) Baseline 10 ng/L (0-10)
--- NOTE | 2021-11-11 13:51 | W.ED.CHESTPA ---
HPI - Chest Pain General: Chief Complaint: Chest Pain Stated Complaint: chest heaviness Time Seen by Provider: 11/11/21 12:58 Source: patient Mode of arrival: ambulatory Limitations: no limitations History of Present Illness: 86-year-old female presents emergency room with complaint of generally not feeling well she had some tightness in her chest. She was supposed to go to the [facility] for some therapy. She has known right leg peripheral neuropathy and she is beginning therapy there when she got to the clinic she was not feeling well she is complaining of tingling her right leg but this is chronic and Nanette comes and goes on a long-term basis the tingling sensation is similar to what she has had in the past. She did take some nitro at home and then at the clinic as well as 325 of aspirin when she got there because of complaint of chest pain. She had an EKG done at the clinic and was directed here by EMS. She states she is not having any pain now there is no radiation of discomfort she had earlier into the neck arms or back. She not been diaphoretic. She is somewhat tachypneic when I seen her. She almost appears to be hyperventilating. She denies any abdominal discomfort. Denies fever sweats chills. NIH score done when patient was initially encountered she gets one-point for ataxia with the right leg however I believe this is due to her known pre-existing peripheral neuropathy. complaint: chest pain Onset (ago): hour(s) Timing of current episode: episodic Onset: during rest Pain location: substernal Pain radiation: none Severity: mild Quality: tightness and aching Relieving factors: nothing Exacerbating factors: nothing Associated symptoms: Deny abdominal pain, diaphoresis, dyspnea, fever(s), leg edema, nausea, palpitations, sense of impending doom, syncope or vomiting Treatment prior to arrival: none Review of Systems Const: Reports: body aches and change in appetite; Denies: fever(s), chills or diaphoresis ENMT: Denies: throat pain Card: Reports: chest pain; Denies: palpitations, irregular heart rhythm, edema or syncope Resp: Denies: dyspnea, productive cough, non-productive cough or wheezing GI: Denies: abdominal pain, nausea or vomiting : Denies: flank pain, difficulty voiding, dysuria, urinary frequency or urinary urgency Musc: Reports: back pain (Chronic) [facility] ED PFSH: Medical History Ambulates with cane ASHD (arteriosclerotic heart disease) Ataxia Atherosclerotic heart disease of creek coronary artery with other forms of angina pectoris Blurring of vision Chronic back pain Chronic shortness of breath Colon cancer Constipation Cystocele with prolapse Diarrhea Fatigue GERD (gastroesophageal reflux disease) History of TIA (transient ischemic attack) Hypertension Lumbar pain with radiation down right leg Mixed hyperlipidemia NSTEMI (non-ST elevated myocardial infarction) SOB (shortness of breath) Suspected 2019-nCoV infection Surgical History H/O left hemicolectomy 2006 H/O vaginal surgery rectocele and cystocele repair in 1999 [place], [place] History of hysterectomy with BSO Family History Sister Breast cancer, Onset Age: 50 Hypertension Father Stroke Heart disease Hypertension Mother Stroke Heart disease Diabetes Hypertension Denies family history of Bleeding disorder Social History Smoking and tobacco status: never smoked Quit status (tobacco): has quit using tobacco Former quit date comment: 34 years ago Second hand smoke exposure: No Alcohol intake: never Lives independently: Yes Household members: none Marital status: / Current occupational status: retired History of recent travel: No Physical Exam Const: GENERAL APPEARANCE: cooperative and comfortable ORIENTATION/CONSCIOUSNESS: Yes awake, Yes oriented to person, Yes oriented to place and Yes oriented to time HENMT: COMMON NORMALS: normocephalic, atraumatic and hearing grossly normal bilaterally HEAD & SCALP: normocephalic and atraumatic Neck/C-Spine: COMMON NORMALS: no JVD Resp: COMMON NORMALS: normal respiratory effort, No retractions, No use of accessory muscles and clear to auscultation bilaterally AUSCULTATION: clear to auscultation bilaterally Cardio: COMMON NORMALS: no JVD, regular rate, regular rhythm and No murmurs present (Cardio) RATE: regular rate RHYTHM: regular rhythm GI: COMMON NORMALS: Soft to palpation and No hepatosplenomegaly present AUSCULTATION: Yes normoactive bowel sounds PALPATION: Yes Soft to palpation, No Tenderness to palpation present (GI), No Guarding due to palpation present (GI) and Yes No hepatosplenomegaly present Extremity: COMMON NORMALS: normal to inspection, capillary refill normal, no clubbing, cyanosis or edema, no calf tenderness and no pedal edema Neuro: SENSORIUM/ORIENTATION: Yes oriented to person, Yes oriented to place and Yes oriented to time Skin: COMMON NORMALS: no rashes or lesions noted GENERAL SKIN EXAM: no rashes or lesions noted Course Vital Signs: Vital signs: Vital Signs Temperature 97.8 F 11/11/21 13:11 Pulse Rate 65 11/11/21 17:55 Respiratory Rate 20 H 11/11/21 17:55 Blood Pressure 171/83 11/11/21 17:55 Pulse Oximetry 97 11/11/21 17:55 MDM - Chest Pain Medical Decision Making Reviewed findings with the patient. She is feeling much better she would like to go home labs are unremarkable she has some mild hyponatremia but is asymptomatic of it. Discussed with the patient we will do increase her isosorbide mononitrate to 90 mg daily and have her set up to follow-up with cardiology within the next 2 to 3 days.Patient had a coronary angiogram May 2020 with nonspecific disease no significantly stenotic lesions. Return if she has worsening problems. Medical Records I reviewed the patient's medical records. Lab Data I reviewed the patient's lab results. : 11/11/21 13:11 11/11/21 13:11 Radiology Impressions Chest X-Ray 11/11/21 13:13 IMPRESSION: No acute findings. Laboratory Results WBC 5.7 10^3/uL (4.0-10.0) 11/11/21 13:11 RBC 3.98 10^6/uL (4.1-5.3) L 11/11/21 13:11 Hgb 12.5 g/dL (11.5-15.3) 11/11/21 13:11 Hct 36.5 % (37.0-47.0) L 11/11/21 13:11 MCV 91.7 fl (81-99) 11/11/21 13:11 MCH 31.4 pg (28.0-34.0) 11/11/21 13:11 MCHC 34.2 g/dL (30.0-36.0) 11/11/21 13:11 RDW 13.1 % (12.1-15.1) 11/11/21 13:11 Plt Count 161 10^3/cmm (130-400) 11/11/21 13:11 MPV 9.0 fL (7.4-10.4) 11/11/21 13:11 Neut % (Auto) 52.7 % 11/11/21 13:11 Lymph % (Auto) 37.1 % 11/11/21 13:11 [place] % (Auto) 8.8 % 11/11/21 13:11 Eos % (Auto) 0.5 % 11/11/21 13:11 Baso % (Auto) 0.5 % 11/11/21 13:11 Neut # (Auto) 3.01 10^3/uL (1.8-7.7) 11/11/21 13:11 Lymph # (Auto) 2.1 10^3/uL (0.8-4.8) 11/11/21 13:11 [place] # (Auto) 0.5 10^3/uL (0.2-0.9) 11/11/21 13:11 Eos # (Auto) 0.0 10^3/uL (0.0-0.8) 11/11/21 13:11 Baso # (Auto) 0.0 10^3/uL (0.0-0.1) 11/11/21 13:11 Nucleated RBC % (auto) 0 % 11/11/21 13:11 Nucleated RBCs # 0.0 /100WBC 11/11/21 13:11 Sodium 126 mmol/L (136-145) L 11/11/21 13:11 Potassium 4.7 mmol/L (3.5-5.1) 11/11/21 13:11 Chloride 91 mmol/L (98-107) L 11/11/21 13:11 Carbon Dioxide 22 mmol/L (22-29) 11/11/21 13:11 Anion Gap 17.7 (5-19) 11/11/21 13:11 BUN 14 mg/dL (8-23) 11/11/21 13:11 Creatinine 0.6 mg/dL (0.5-0.9) 11/11/21 13:11 GFR Calculation Not Reportable 11/11/21 13:11 Glucose 94 mg/dL (65-115) 11/11/21 13:11 Calculated Osmolality 262 mOsm/kg (285-295) L 11/11/21 13:11 Calcium 9.3 mg/dL (8.5-10.5) 11/11/21 13:11 Total Bilirubin 0.7 mg/dL (0.15-1.2) 11/11/21 13:11 AST 25 U/L (0-32) 11/11/21 13:11 ALT 17 U/L (0-33) 11/11/21 13:11 Alkaline Phosphatase 58 IU/L (35-105) 11/11/21 13:11 Troponin T Baseline 10 ng/L (0-10) 11/11/21 13:11 Troponin T 120 Minute 10.10 ng/L (0-10) H 11/11/21 15:21 Delta Troponin T 0.10 ABS# (0-10) 11/11/21 15:21 Total Protein 6.8 g/dL (6.6-8.7) 11/11/21 13:11 Albumin 4.3 g/dL (3.5-5.2) 11/11/21 13:11 Globulin 2.5 g/dL (1.3-4.6) 11/11/21 13:11 Discharge Plan Discharge Patient Disposition: Home Clinical Impression: Atypical chest pain Condition: Stable Prescriptions: Changed isosorbide mononitrate 60 mg tablet extended release 24 hr 90 mg PO DAILY Qty: 90 3RF No Action duloxetine [Cymbalta] 20 mg capsule,delayed release(DR/EC) 20 mg PO BID Qty: 60 0RF nitroglycerin 0.4 mg tablet, sublingual See Rx Instructions .ROUTE .COMPLEX Qty: 50 5RF Dose Instruction: DISSOLVE 1 TABLET UNDER THE TONGUE EVERY 5 MINUTES NEEDED FOR CHEST PAIN Rx Instructions: DISSOLVE 1 TABLET UNDER THE TONGUE EVERY 5 MINUTES NEEDED FOR CHEST PAIN nifedipine 30 mg tablet extended release 30 mg PO DAILY Qty: 90 3RF trazodone 50 mg Tablet 50 mg PO DAILY@20 0RF Probiotic 3 billion cell capsule 3,000 mmu cells PO BID@08,20 0RF Rx Instructions: administer with a meal aspirin 81 mg Tablet,Delayed Release (Dr/Ec) 81 mg PO DAILY 30 Days Qty: 30 2RF atorvastatin 40 mg tablet 40 mg PO QPM 0RF losartan 100 mg tablet 100 mg PO QPM 0RF Multi For Her 50 Plus 400-80 mcg Capsule 1 cap PO DAILY 0RF Discharge Orders: Discharge ED (Routine); Ordered 11/11/21 Ordered By: Robert Jacobsen Referrals: Napoleon Hall MD [Primary Care Provider] - Discharge Diet: Usual diet Discharge Activity: Limit activity as instructed Patient Instructions: Opioid Safety Activity Restrictions/Additional Instructions: Follow-up with cardiology within the next 2 to 3 days. Coding Level of Care Code ED Bench Press Operator for Trentong Fwd Exam Comprehensive NIH stroke score NIHSS Level Of Consciousness - 1a: 0 Level Of Consciousness Questions - 1b: Both Correct Level Of Consciousness Commands - 1c: Both Correct Best Gaze - 2: Normal Visual Chatterjee - 3: No Visual Loss Facial Palsy - 4: Normal Motor Arm Right - 5: No Drift Motor Arm Left - 5: No Drift Motor Leg Right - 6: No Drift Motor Leg Left - 6: No Drift Limb Ataxia - 7: Present In One Limb (Right leg-known peripheral neuropathy in this leg) Sensory - 8: Normal Best Language - 9: No Aphasia Dysarthia - 10: Normal Extinction And Inattention - 11: 0 Score Total Score: 1
[2021-11-11 14:00] VITALS: BP 168/72; PULSE 57; RESP 19; O2SAT 100
[2021-11-11 15:00] VITALS: BP 144/77; PULSE 64; RESP 16; O2SAT 98
--- NOTE | 2021-11-11 15:13 | ECG_ITS ---
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 Measurements Intervals [place] Rate: 63 P: 52 ND: 168 QRS: -49 QRSD: 113 T: -14 QT: 456 QTc: 468 Interpretive Statements SINUS RHYTHM LEFT AXIS DEVIATION [QRS AXIS < -30] VOLTAGE CRITERIA FOR LVH POSSIBLE SEPTAL MYOCARDIAL INFARCTION , PROBABLY OLD Compared to ECG 11/11/2021 13:33:41 Sinus bradycardia no longer present T-wave abnormality no longer present Possible ischemia no longer present Myocardial infarct finding still present Electronically Signed On 11-11-2021 17:41:08 CDT by Maddy Meade M.D. [email or web address] holmes countyEpostrinity [facility].[employer]/store/OM/[id number]
--- NOTE | 2021-11-11 16:18 | PC.PHAR ---
PT STATES DR BERGER PLAVIX A LONG TIME AGO.
[2021-11-11 16:19] VITALS: BP 149/71; PULSE 61; RESP 18; O2SAT 93
[2021-11-11] MEDS: ketorolac 30 mg/mL INJ IVP (17:38)
[2021-11-11] MEDS: promethazine 25 mg/mL SDV 1 mL 12.5 MG IM (17:38)
[2021-11-11 17:55] VITALS: BP 171/83; PULSE 65; RESP 20; O2SAT 97
--- NOTE | 2021-11-13 17:14 | DCPLANNER ---
Addendum entered by Linnea Verdin 11/22/21 16:30: Patient had a follow up appointment scheduled for 11.18.21 with [facility] - patient did attend appointment. Original Note: client service and consulting manager had message to schedule a follow up appointment for patient with cardiology. client service and consulting manager sent patients information to the front office staff at [facility]. Patients information would be printed and reviewed. Clinic will call patient with appointment information.
== END 2021-11-11 17:57 | disposition home or self-care (01) ==
PROVIDERS: Emergency Provider Family Medicine; PCP Internal Medicine
DX: R07.89 Other chest pain (principal); E87.1 Hypo-osmolality and hyponatremia
CPT/HCPCS: 71045; 80053; 84484; 85025; 93005; 96372; 96374; 99285; J1885; J2550

== ENCOUNTER → 2021-11-18 14:25 | Outpatient (BNVA) | payer MEDICARE, OTHER, SELFPAY | PROVIDERS: PCP Internal Medicine; Visit Provider Nurse Practitioner Family | DX: I10 Essential (primary) hypertension (principal); E87.1 Hypo-osmolality and hyponatremia; R39.9 Unspecified symptoms and signs involving the genitourinary system | CPT/HCPCS: 36415; 80048; 81001; 87086; 99213 ==

== ENCOUNTER 2021-11-27 06:00 | Outpatient (RCR) | payer MEDICARE, OTHER, SELFPAY | END 2021-12-26 23:59 | disposition home or self-care (01) | LOC: APT 06:00 | PROVIDERS: PCP Internal Medicine; Referring Provider Nurse Practitioner; Visit Provider Nurse Practitioner | DX: M54.50 Low back pain, unspecified (principal); M79.604 Pain in right leg | CPT/HCPCS: 97110 ==

== ENCOUNTER → 2022-05-28 08:07 | Outpatient (BNVA) | payer MEDICARE, OTHER, SELFPAY | PROVIDERS: PCP Internal Medicine; Visit Provider Nurse Practitioner Family | DX: I10 Essential (primary) hypertension (principal); I25.118 Atherosclerotic heart disease of native coronary artery with other forms of angina pectoris | CPT/HCPCS: 99213 ==

== ENCOUNTER → 2022-06-11 10:07 | Outpatient (BNVA) | payer MEDICARE, OTHER, SELFPAY | PROVIDERS: PCP Nurse Practitioner; Visit Provider Nurse Practitioner Family | DX: I10 Essential (primary) hypertension (principal) | CPT/HCPCS: 99214 ==

== ENCOUNTER 2022-07-01 13:24 | Outpatient (CLI) | payer MEDICARE, OTHER, SELFPAY ==
--- NOTE | 2022-07-01 13:45 | USR_ITS ---
PROCEDURE INFORMATION: Exam: US Duplex Artery and Vein of the Abdominal and/or Reproductive Organs, Complete Kidneys Exam date and time: 07/01/2022 1:52 PM Age: 86 years old Clinical indication: Condition or disease; Other: Hypertension; Additional info: Uncontrolled hypertension TECHNIQUE: Imaging protocol: Real-time duplex ultrasound scan of the arterial and venous flow with color Doppler flow and spectral waveform analysis with image documentation. Complete duplex exam focused on the kidneys. Duplex exam was performed to evaluate for vascular conditions. COMPARISON: CT abdomen pelvis w con* [id number] 11/02/2019 1:07 PM FINDINGS: Right kidney: Normal. No hydronephrosis. No masses. Right renal artery: Twofold increased in systolic flow velocity right renal artery suspicious for renal artery stenosis. Right interlobar/arcuate arteries: Normal resistive indices (0.6-0.7) Right renal vein: Patent Left kidney: Normal. No hydronephrosis. No masses. Left renal artery: Normal duplex of the renal artery. Duplex waveforms are within normal limits. No hemodynamically significant stenosis. Left interlobar/arcuate arteries: Normal resistive indices (0.6-0.7) Left renal vein: Patent US/CV renal doppler [id number] IMPRESSION: 1. Two fold increase in systolic flow velocity right renal artery suspicious for renal artery stenosis. 2. No evidence of renal artery stenosis left kidney. 3. No evidence of renal vein thrombosis.
== END 2022-07-01 13:25 | disposition home or self-care (01) ==
LOC: RAD 13:27
PROVIDERS: PCP Nurse Practitioner; Visit Provider Nurse Practitioner Family
DX: I10 Essential (primary) hypertension (principal)
CPT/HCPCS: 93975

== ENCOUNTER → 2022-09-17 10:07 | Outpatient (BNVA) | payer MEDICARE, OTHER, SELFPAY | PROVIDERS: PCP Nurse Practitioner; Visit Provider Internal Medicine Cardiovascular Disease | DX: I25.118 Atherosclerotic heart disease of native coronary artery with other forms of angina pectoris (principal); I10 Essential (primary) hypertension; E78.2 Mixed hyperlipidemia; I25.2 Old myocardial infarction; Z79.82 Long term (current) use of aspirin | CPT/HCPCS: 99214 ==